=== PATIENT | male | born 1950 | race Caucasian/White ===

== ENCOUNTER → 2017-06-22 08:52 | Outpatient (CLI) | payer MEDICARE, OTHER, SELFPAY ==
[2017-06-22 10:15] LABS: Anion Gap 7 (5-15); BUN 20 mg/dL (7-18); BUN/Creat Ratio 17.4 RATIO (10-20); Calcium,Total 8.8 mg/dL (8.5-10.1); Chloride 101 mmol/L (98-107); Creatinine, Serum 1.15 mg/dL (0.70-1.30); EST Glomerular Filtration Rate 68 mL/min (>60); Est Glom Filt Rate - Afr Amer 82 mL/min (>60); Glucose 94 mg/dL (74-106); Potassium 3.8 mmol/L (3.5-5.1); Sodium Level 137 mmol/L (136-145)
== END ==
DX: I10 Essential (primary) hypertension (principal); E87.6 Hypokalemia
CPT/HCPCS: 36415; 80048

== ENCOUNTER → 2017-11-06 10:32 | Outpatient (CLI) | payer MEDICARE, OTHER, SELFPAY ==
[2017-11-06 12:53] LABS: AST(SGOT) 30 U/L (15-37); Alanine Aminotransfer ALT/SGPT 37 U/L (16-61); Albumin, Serum 3.6 g/dL (3.2-5.0); Alkaline Phosphatase 99 U/L (45-117); Bilirubin, Direct 0.18 mg/dL (0.00-0.30); Cholesterol 112 mg/dL (200); Globulin 3.6 g/dL (2.2-4.2); High Density Lipoprotein 40 mg/dL; Protein, Total 7.2 g/dL (6.4-8.2); Triglycerides 98 mg/dL; Very Low Density Lipoprotein 20 mg/dL (5-40)
== END ==
PROVIDERS: Visit Provider Family Medicine
DX: E78.5 Hyperlipidemia, unspecified (principal)
CPT/HCPCS: 36415; 80061; 80076

== ENCOUNTER → 2018-05-20 10:30 | Outpatient (CLI) | payer MEDICARE, OTHER, SELFPAY ==
[2017-11-07 13:58] VITALS: BMI 27.3
[2018-05-20 12:05] LABS: Color, Urine Yellow (Yellow); Glucose, Dipstick Normal (Normal); Ketone-Dipstick Negative (Negative); Leukocyte Esterase-Dipstick 25 /ul (Negative); Nitrite-Dipstick Negative (Negative); Occult Blood-Urine 25 /ul (Negative); Protein-Dipstick 15 mg/dl (Negative); Urine Bilirubin Dipstick Negative (Negative); Urine Clarity Clear (Clear); Urine Urobilinogen Normal (Normal)
[2018-05-20 12:37] LABS: Absolute Lymphocyte Count 1.42 X10^3/ul (0.83-4.51); Basophil# 0.02 X10^3/uL; Basophil% 0.2 % (0-1); Eosinophil# 0.13 X10^3/uL; Eosinophils% 1.3 % (0-5); Hemoglobin 14.3 g/dl (13.0-16.5); Lymphocyte # 1.42 X10^3/ul (4.0); Lymphocyte % 13.7 % (19-41); Mean Corp Hgb Conc 32.5 g/gl (32-36); Mean Corpuscular Hgb 29.9 pg (27.0-32.0); Mean Corpuscular Volume 91.9 fL (80-94); Mean Platelet Vol. 11.6 fl (6.2-12.0); Monocyte# 0.73 X10^3/uL; Monocyte% 7.1 % (0-10); Neutrophil # 8.03 X10^3/uL (2.7-7.7); Neutrophil % 77.5 % (47-70); Platelet Count 234 K/mm3 (150-450); RBC Distribution Width CV 13.1 % (11.6-14.6); RBC Distribution Width SD 43.5 fl (35.1-43.9); Red Blood Count 4.79 M/mm3 (4.6-6.2); White Blood Count 10.4 K/mm3 (4.4-11.0)
[2018-05-20 12:52] LABS: POSITIVE COUNT NO; POSITIVE DIFFERENTIAL NO; POSITIVE MORPHOLOGY NO
[2018-05-20 12:59] LABS: ALB/GLOB Ratio 0.9 RATIO (0.9-2.4); AST(SGOT) 25 U/L (15-37); Alanine Aminotransfer ALT/SGPT 34 U/L (16-61); Albumin, Serum 3.7 g/dL (3.2-5.0); Alkaline Phosphatase 133 U/L (45-117); Anion Gap 2 (5-15); BUN 21 mg/dL (7-18); BUN/Creat Ratio 18.9 RATIO (10-20); Calcium,Total 8.9 mg/dL (8.5-10.1); Chloride 105 mmol/L (98-107); Cholesterol 129 mg/dL (200); Creatinine, Serum 1.11 mg/dL (0.70-1.30); EST Glomerular Filtration Rate 70 mL/min (>60); Est Glom Filt Rate - Afr Amer 85 mL/min (>60); Glucose 102 mg/dL (74-106); High Density Lipoprotein 43 mg/dL; Protein, Total 7.7 g/dL (6.4-8.2); Sodium Level 138 mmol/L (136-145); Triglycerides 115 mg/dL; Very Low Density Lipoprotein 23 mg/dL (5-40)
== END ==
PROVIDERS: Referring Provider Family Medicine; Visit Provider Family Medicine
DX: Z00.00 Encounter for general adult medical examination without abnormal findings (principal); I10 Essential (primary) hypertension; E78.5 Hyperlipidemia, unspecified; Z86.73 Personal history of transient ischemic attack (TIA), and cerebral infarction without residual deficits; Z12.5 Encounter for screening for malignant neoplasm of prostate
CPT/HCPCS: 36415; 80053; 80061; 81002; 84153; 85025; G0103

== ENCOUNTER → 2018-11-14 09:59 | Outpatient (CLI) | payer MEDICARE, OTHER, SELFPAY ==
[2017-11-07 13:58] VITALS: BMI 27.3
[2018-11-14 12:51] LABS: AST(SGOT) 31 U/L (15-37); Alanine Aminotransfer ALT/SGPT 38 U/L (16-61); Albumin, Serum 3.6 g/dL (3.2-5.0); Alkaline Phosphatase 100 U/L (45-117); Bilirubin, Direct 0.25 mg/dL (0.00-0.30); Cholesterol 125 mg/dL (200); Globulin 3.6 g/dL (2.2-4.2); High Density Lipoprotein 42 mg/dL; Protein, Total 7.2 g/dL (6.4-8.2); Triglycerides 99 mg/dL; Very Low Density Lipoprotein 20 mg/dL (5-40)
== END ==
PROVIDERS: Referring Provider Family Medicine; Visit Provider Family Medicine
DX: E78.5 Hyperlipidemia, unspecified (principal)
CPT/HCPCS: 36415; 80061; 80076

== ENCOUNTER → 2018-11-28 10:52 | Outpatient (CLI) | payer MEDICARE, OTHER, SELFPAY ==
[2017-11-07 13:58] VITALS: BMI 27.3
[2018-12-01 13:40] LABS: PSA, Free 2.62 ng/mL; PSA, Free % 40.3 % (.); PSA, Total Ultrasensitive 6.5 ng/mL (0.0-4.0)
== END ==
PROVIDERS: Referring Provider Urology; Visit Provider Urology
DX: R97.20 Elevated prostate specific antigen [PSA] (principal)
CPT/HCPCS: 36415; 84153; 84154

== ENCOUNTER → 2019-05-15 09:32 | Outpatient (CLI) | payer MEDICARE, SELFPAY ==
[2018-12-06 13:35] VITALS: BMI 29.3
[2019-05-15 12:37] LABS: Color, Urine Yellow (Yellow); Glucose, Dipstick Normal (Normal); Ketone-Dipstick Negative (Negative); Leukocyte Esterase-Dipstick Negative /ul (Negative); Nitrite-Dipstick Negative (Negative); Occult Blood-Urine Negative /ul (Negative); Protein-Dipstick 15 mg/dl (Negative); Urine Bilirubin Dipstick Negative (Negative); Urine Clarity Clear (Clear); Urine Urobilinogen Normal (Normal)
[2019-05-15 12:39] LABS: Absolute Lymphocyte Count 1.47 X10^3/uL (0.83-4.51); Absolute Neutrophil Count 4.3 X10^3/uL (2.0-7.7); Basophil# 0.03 X10^3/uL; Basophil% 0.5 % (0-1); Eosinophil# 0.12 X10^3/uL; Eosinophils% 1.9 % (0-5); Hematocrit 43.9 % (40-54); Hemoglobin 14.5 g/dL (13.0-16.5); Lymphocyte # 1.47 X10^3/ul (4.0); Mean Corpuscular Hgb 29.8 pg (27.0-32.0); Mean Corpuscular Volume 90.3 fL (80-94); Mean Platelet Vol. 11.9 fl (6.2-12.0); Monocyte# 0.49 X10^3/uL; Monocyte% 7.7 % (0-10); NRBC Flagged by Analyzer 0 % (0-5); Neutrophil # 4.26 X10^3/uL (2.7-7.7); Neutrophil % 66.6 % (47-70); Platelet Count 209 K/mm3 (150-450); RBC Distribution Width CV 12.7 % (11.6-14.6); RBC Distribution Width SD 41.9 fl (35.1-43.9); Red Blood Count 4.86 M/mm3 (4.6-6.2); White Blood Count 6.4 K/mm3 (4.4-11.0)
[2019-05-15 13:11] LABS: AST(SGOT) 26 U/L (15-37); Alanine Aminotransfer ALT/SGPT 38 U/L (16-61); Albumin, Serum 3.6 g/dL (3.2-5.0); Alkaline Phosphatase 99 U/L (45-117); Anion Gap 6 (5-15); BUN 19 mg/dL (7-18); BUN/Creat Ratio 18.3 RATIO (10-20); Calcium,Total 8.8 mg/dL (8.5-10.1); Chloride 103 mmol/L (98-107); Cholesterol 120 mg/dL (200); Creatinine, Serum 1.04 mg/dL (0.70-1.30); EST Glomerular Filtration Rate 76 mL/min (>60); Est Glom Filt Rate - Afr Amer 91 mL/min (>60); Globulin 3.6 g/dL (2.2-4.2); Glucose 95 mg/dL (74-106); High Density Lipoprotein 41 mg/dL; PSA,Total - Annual Screen 6.29 ng/mL (0.00-4.00); Potassium 3.5 mmol/L (3.5-5.1); Protein, Total 7.2 g/dL (6.4-8.2); Sodium Level 139 mmol/L (136-145); Triglycerides 124 mg/dL; Very Low Density Lipoprotein 25 mg/dL (5-40)
== END ==
PROVIDERS: Referring Provider Family Medicine; Visit Provider Family Medicine
DX: Z00.00 Encounter for general adult medical examination without abnormal findings (principal); I10 Essential (primary) hypertension; E78.5 Hyperlipidemia, unspecified; Z86.73 Personal history of transient ischemic attack (TIA), and cerebral infarction without residual deficits; Z12.5 Encounter for screening for malignant neoplasm of prostate
CPT/HCPCS: 36415; 80053; 80061; 81002; 84153; 85025; G0103

== ENCOUNTER → 2019-11-13 07:22 | Outpatient (CLI) | payer MEDICARE, SELFPAY ==
[2018-12-06 13:35] VITALS: BMI 29.3
[2019-11-13 10:10] LABS: AST(SGOT) 29 U/L (15-37); Alanine Aminotransfer ALT/SGPT 32 U/L (16-61); Albumin, Serum 3.6 g/dL (3.2-5.0); Alkaline Phosphatase 102 U/L (45-117); Bilirubin, Direct 0.29 mg/dL (0.00-0.30); Cholesterol 131 mg/dL (200); Globulin 3.5 g/dL (2.2-4.2); High Density Lipoprotein 47 mg/dL; Protein, Total 7.1 g/dL (6.4-8.2); Triglycerides 100 mg/dL; Very Low Density Lipoprotein 20 mg/dL (5-40)
== END ==
PROVIDERS: Referring Provider Family Medicine; Visit Provider Family Medicine
DX: E78.5 Hyperlipidemia, unspecified (principal)
CPT/HCPCS: 36415; 80061; 80076

== ENCOUNTER → 2020-06-17 09:16 | Outpatient (CLI) | payer MEDICARE, SELFPAY ==
[2019-12-10 15:21] VITALS: BMI 27.7
[2020-06-17 10:26] LABS: Absolute Lymphocyte Count 1.45 X10^3/uL (0.83-4.51); Absolute Neutrophil Count 4.2 X10^3/uL (2.0-7.7); Basophil# 0.03 X10^3/uL; Basophil% 0.5 % (0-1); Eosinophil# 0.13 X10^3/uL; Eosinophils% 2.1 % (0-5); Hematocrit 44.7 % (40-54); Hemoglobin 14.8 g/dL (13.0-16.5); Lymphocyte # 1.45 X10^3/ul (0.83-4.51); Mean Corp Hgb Conc 33.1 g/dL (32-36); Mean Corpuscular Hgb 29.9 pg (27.0-32.0); Mean Corpuscular Volume 90.3 fL (80-94); Mean Platelet Vol. 11.1 fl (6.2-12.0); Monocyte% 7.9 % (0-10); NRBC Flagged by Analyzer 0 % (0-5); Neutrophil # 4.19 X10^3/uL (2.7-7.7); Neutrophil % 66.3 % (47-70); Platelet Count 226 K/mm3 (150-450); RBC Distribution Width CV 12.3 % (11.6-14.6); RBC Distribution Width SD 40.7 fl (35.1-43.9); Red Blood Count 4.95 M/mm3 (4.6-6.2); White Blood Count 6.3 K/mm3 (4.4-11.0)
[2020-06-17 11:05] LABS: AST(SGOT) 24 U/L (15-37); Alanine Aminotransfer ALT/SGPT 34 U/L (16-61); Albumin, Serum 3.7 g/dL (3.2-5.0); Alkaline Phosphatase 99 U/L (45-117); Anion Gap 5 (5-15); BUN 20 mg/dL (7-18); BUN/Creat Ratio 19.2 RATIO (10-20); Calcium,Total 8.9 mg/dL (8.5-10.1); Chloride 102 mmol/L (98-107); Cholesterol 119 mg/dL (200); Creatinine, Serum 1.04 mg/dL (0.70-1.30); EST Glomerular Filtration Rate 75 mL/min (>60); Est Glom Filt Rate - Afr Amer 91 mL/min (>60); Globulin 3.6 g/dL (2.2-4.2); Glucose 96 mg/dL (74-106); High Density Lipoprotein 47 mg/dL; PSA,Total - Annual Screen 6.94 ng/mL (0.00-4.00); Potassium 3.5 mmol/L (3.5-5.1); Protein, Total 7.3 g/dL (6.4-8.2); Sodium Level 136 mmol/L (136-145); Triglycerides 100 mg/dL; Very Low Density Lipoprotein 20 mg/dL (5-40)
== END ==
PROVIDERS: PCP Family Medicine; Referring Provider Family Medicine; Visit Provider Family Medicine
DX: Z00.00 Encounter for general adult medical examination without abnormal findings (principal); I10 Essential (primary) hypertension; E78.5 Hyperlipidemia, unspecified; Z12.5 Encounter for screening for malignant neoplasm of prostate
CPT/HCPCS: 36415; 80053; 80061; 84153; 85025; G0103

== ENCOUNTER 2020-11-10 00:49 | Emergency (ER) | payer MEDICARE, SELFPAY ==
[2020-11-10 00:52] VITALS: BP 146/86; PULSE 86; RESP 14; TEMP 36.7; O2SAT 98; BMI 27.7
[2020-11-10 00:53] VITALS: BP 146/86; PULSE 86; RESP 14; TEMP 36.7; O2SAT 98
--- NOTE | 2020-11-10 01:42 | CT_ITS ---
STUDY: CT ABDOMEN AND PELVIS WITHOUT CONTRAST REASON FOR EXAM: Male, 70 years old. Hernia RADIATION DOSAGE (If Supplied By Facility): CTDIvol = ( 8.45 ) mGy, DLP = ( 441.23 ) mGycm TECHNIQUE: Transaxial images were obtained from the dome of the diaphragm to the symphysis pubis without oral contrast, and without intravenous contrast. Sagittal and coronal images were reconstructed. Individualized dose optimization techniques were used for this CT. COMPARISON: None. FINDINGS: The visualized lung bases are unremarkable. The visualized portions of the heart are within normal limits. Normal liver. Normal gallbladder and extrahepatic biliary system. Normal spleen. Normal pancreas. Normal bilateral adrenal glands. Normal right kidney. Small nonobstructive left renal collecting system calculus. Normal visualized stomach. Normal small intestine. Normal colon. The appendix is visualized and appears normal. There is diffuse atherosclerotic calcification of the abdominal aorta with elongation and tortuosity, but without a demonstrated aneurysm. Normal inferior vena cava. Normal retroperitoneum. Normal urinary bladder. There is enlargement of the prostate gland. Left greater than right fat-containing hernias. Mild left-sided fat stranding suggesting incarceration. No involved bowel loop. Normal osseous structures. CT/Abdomen/Pelvis without Cont IMPRESSION: Left fat-containing inguinal hernia appears incarcerated. No involved bowel loop. Electronically Signed: Luis Felipe Veliz MD at 3:08 EDT Tel , Service support ,
--- NOTE | 2020-11-10 02:34 | EDS_ITS ---
HPI <Dr. Anila Ni MD - Last Filed: 11/10/20 10:54> History of Present Illness Chief Complaint: Complaint Detail of Chief Complaint: Left lower quadrant pain Informant: patient Onset/Context/Timing Onset: Today Current Severity: Mild Maximum Severity: Severe Narrative Narrative: Patient presents secondary to left lower quadrant pain. He states earlier tonight he noted a large swollen area in his left lower abdomen that was very painful. He took some ibuprofen and put ice pack on the area. It seems to be significantly improved at this time. Patient denies any dysuria or difficulty urinating. No known hernia. [facility] <Dr. Anila Ni MD - Last Filed: 11/10/20 10:54> [facility] Medical History (Updated 11/10/20 @ 02:[address] Anila Ni MD) Cerebral artery occlusion with cerebral infarction Essential hypertension Hyperlipidemia JACK (obstructive sleep apnea) Home Medications aspirin 81 mg PO DAILY@0800 #30 tab.chew 09/08/14 [Rx Last Taken Unknown] hydrochlorothiazide 25 mg tablet 25 mg PO QAM #30 tab 04/30/17 [Rx Last Taken Unknown] omega-3 fatty acids 1,000 mg capsule 1,000 mg PO DAILY 10/30/17 [History Last Taken Unknown] multivitamin 1 tab PO DAILY 11/07/17 [History Last Taken Unknown] ascorbic acid (vitamin C) 500 mg capsule 500 mg PO DAILY cap 12/06/18 [History Last Taken Unknown] atorvastatin 40 mg tablet 40 mg PO QHS #90 tab 04/22/19 [Rx Last Taken Unknown] lisinopril 20 mg tablet 20 mg PO DAILY 12/10/19 [History Last Taken Unknown] Allergy/AdvReac Type Severity Reaction Status Date / Time No Known Allergies Allergy Verified 12/10/19 15:21 Family History Father Cancer Brain Social History Smoking Status: Never smoker alcohol intake: never substance use type: does not use ROS <Dr. Anila Ni MD - Last Filed: 11/10/20 10:54> ROS ED Constitutional Constitutional ED: Denies chills or fever(s) Eyes Eyes: Denies change in vision ENT ENT ED: Denies sore throat Cardiovascular Cardiovascular: Denies chest pain Respiratory/Chest Respiratory/Chest: Denies cough or dyspnea Gastrointestinal Gastrointestinal: Reports abdominal pain; Denies diarrhea, nausea or vomiting Genitourinary Genitourinary ED: Denies dysuria Musculoskeletal Musculoskeletal: Denies back pain Integumentary Denies rash Neurologic Neurologic: Denies headache(s) or weakness Allergic/Immunologic Allergic/Immunologic ED: Denies urticaria EXAM <Dr. Anila Ni MD - Last Filed: 11/10/20 10:54> Physical Exam Const Vital Signs: 11/10/20 00:52 11/10/20 00:53 11/10/20 03:44 Temperature 98.1 F 98.1 F Temperature Source Temporal Temporal Pulse Rate 86 86 84 Respiratory Rate 14 14 18 Blood Pressure 146/86 H 146/86 H Blood Pressure Mean 106 106 Pulse Ox 98 98 97 Oxygen Delivery Method Room Air Room Air Positive well nourished and well developed General Appearance ED: well developed HEENT Reports normocephalic and head/scalp atraumatic Eyes PERRL and EOMs intact bilaterally Neck supple Chest Wall inspection of chest normal and palpation of chest normal Resp normal respiratory effort and clear to auscultation bilaterally Cardio regular rate and regular rhythm GI normal to inspection, nondistended, normoactive bowel sounds Palpation: soft and tender other (Mild tenderness along the left inguinal line.) Extremity normal to inspection Neuro oriented x3 and no sensory deficits noted Sensorium / Orientation: alert Motor Exam: strength 5/5 throughout Psych mental status grossly normal Skin no rashes or lesions noted <Dr. Alfa Hernandez DO - Last Filed: 11/10/20 03:40> Physical Exam Const Vital Signs: 11/10/20 00:52 11/10/20 00:53 11/10/20 03:44 Temperature 98.1 F 98.1 F Temperature Source Temporal Temporal Pulse Rate 86 86 84 Respiratory Rate 14 14 18 Blood Pressure 146/86 H 146/86 H Blood Pressure Mean 106 106 Pulse Ox 98 98 97 Oxygen Delivery Method Room Air Room Air MDM <Dr. Anila Ni MD - Last Filed: 11/10/20 10:54> [facility] MDM Narrative Medical decision making narrative: Patient's clinical exam consistent with hernia. I do not appreciate strangulated hernia at this time. He is sent for CT flank. Radiography Diagnostic Testing: Radiology Impression Abdomen/Pelvis CT 11/10/20 01:42 IMPRESSION: Left fat-containing inguinal hernia appears incarcerated. No involved bowel loop. Electronically Signed: Luis Felipe Veliz MD at 3:08 EDT Tel , Service support , Treatment and Re-Evaluation Comments:: Per my interpretation there does appear to be a hernia sac noted to the left inguinal region. I do not see any sign of bowel inflammation or obstruction. Final report will be signed out to oncoming physician. Patient be given lifting restrictions and referral for surgery follow-up. <Dr. Alfa Hernandez, DO - Last Filed: 11/10/20 03:40> [facility] MDM Narrative Medical decision making narrative: Le: Results of CT scan fat-containing hernia with stranding reporting incarcerated. There is no bowel loops. He has no current pain. Patient is given follow-up with surgery. Return precautions discussed. All questions answered. Radiography Diagnostic Testing: Radiology Impression Abdomen/Pelvis CT 11/10/20 01:42 IMPRESSION: Left fat-containing inguinal hernia appears incarcerated. No involved bowel loop. Electronically Signed: Luis Felipe Veliz MD at 3:08 EDT Tel , Service support , Discharge Plan Triage Chief Complaint: Complaint ED Provider: Anila Ni Dx/Rx/DC Orders Clinical Impression: Inguinal hernia Instructions: ED Hernia (Adult) Prescriptions: No Action multivitamin tablet 1 tab PO DAILY RF: 0 omega-3 fatty acids [Fish Oil Concentrate] 1,000 mg capsule 1,000 mg PO DAILY RF: 0 ascorbic acid (vitamin C) 500 mg capsule 500 mg PO DAILY RF: 0 lisinopril 20 mg tablet 20 mg PO DAILY RF: 0 aspirin 81 MG tablet,chewable 81 mg PO DAILY@0800 Qty: 30 RF: 0 hydrochlorothiazide 25 mg tablet 25 mg PO QAM Qty: 30 RF: 11 atorvastatin 40 mg tablet 40 mg PO QHS Qty: 90 RF: 3 Stand Alone Forms: ED Work / School Excuse Primary Care Provider: Aayush Alston Referrals: Joe Sherwood MD [STAFF PHYSICIAN] - As soon as possible Aayush Alston MD [Primary Care Provider] - Disposition Disposition: Home, Self Care Discharge Date/Time: 11/10/20 03:46
[2020-11-10 03:44] VITALS: PULSE 84; RESP 18; O2SAT 97
== END 2020-11-10 03:46 | disposition home or self-care (01) ==
PROVIDERS: Emergency Provider Emergency Medicine; PCP Family Medicine
DX: K40.30 Unilateral inguinal hernia, with obstruction, without gangrene, not specified as recurrent (principal); I10 Essential (primary) hypertension; E78.5 Hyperlipidemia, unspecified; G47.33 Obstructive sleep apnea (adult) (pediatric); Z79.82 Long term (current) use of aspirin; Z79.899 Other long term (current) drug therapy; Z86.73 Personal history of transient ischemic attack (TIA), and cerebral infarction without residual deficits
CPT/HCPCS: 74176; 99282

== ENCOUNTER 2020-11-26 05:36 | Day surgery (SDC) | payer MEDICARE, SELFPAY ==
--- NOTE | 2020-11-24 10:43 | EKG12_ITS ---
Test Reason : PRE OP Blood Pressure : / mmHG Vent. Rate : 066 BPM Atrial Rate : 066 BPM P-R Int : 160 ms QRS Dur : 100 ms QT Int : 382 ms P-R-T Axes : 047 -54 025 degrees QTc Int : 400 ms Normal sinus rhythm Left axis deviation Abnormal ECG Confirmed by CALLY CARPIO, CHARLENE ([id number]), editorial cartoonist JAYESH DE LEON ([id number]) on 11/26/2020 9:48:35 AM Referred By: Joe Sherwood Confirmed By:CHARLENE ALAMO MD
[2020-11-24 11:30] LABS: Hematocrit 42.7 % (40-54); Hemoglobin 14.6 g/dL (13.0-16.5); Mean Corp Hgb Conc 34.2 g/dL (32-36); Mean Corpuscular Hgb 30.7 pg (27.0-32.0); Mean Corpuscular Volume 89.7 fL (80-94); Platelet Count 242 K/mm3 (150-450); RBC Distribution Width CV 12.2 % (11.6-14.6); RBC Distribution Width SD 40.2 fl (35.1-43.9); Red Blood Count 4.76 M/mm3 (4.6-6.2); White Blood Count 7.6 K/mm3 (4.4-11.0)
[2020-11-24 11:52] LABS: Anion Gap 4 (5-15); BUN 21 mg/dL (7-18); BUN/Creat Ratio 20.2 RATIO (10-20); Calcium,Total 9.1 mg/dL (8.5-10.1); Chloride 103 mmol/L (98-107); Creatinine, Serum 1.04 mg/dL (0.70-1.30); EST Glomerular Filtration Rate 75 mL/min (>60); Est Glom Filt Rate - Afr Amer 91 mL/min (>60); Glucose 122 mg/dL (74-106); Potassium 3.6 mmol/L (3.5-5.1); Sodium Level 137 mmol/L (136-145)
[2020-11-26] VITALS (7 sets, daily range): BP systolic 100–143; BP diastolic 58–86; PULSE 57–88; RESP 14–18; TEMP 36.2–36.8; O2SAT 94–100; BMI 26.4
--- NOTE | 2020-11-26 | HERN_PTH ---
PATIENT: MANN THURMAN LOC: [facility] U#:[id number] AGE/SX: 70/M ROOM: RE11/26/[address]: Dr. Joe Sherwood MD : 1950 BED: DIS: 11/26/2020 SPEC #: [id number] RECD: 11/26/20 13:08 STATUS: PAUL KUNAL #: [id number] [place]YANNE: 11/26/20 00:[address]: Joe Sherwood DEPT: SURGICAL PATHOLOGY RECD BY: Chas Esquivel ENTERED: 11/26/20 13:08 SP TYPE: Hernia OTHR DR: Dr. Aayush Alston MD Tissues: HERNIA Procedures: Surgery Specimen Level II HEADER OPERATION: Open inguinal hernia repair with mesh PRE-OP DIAGNOSIS: Inguinal hernia TISSUE SUBMITTED: Left inguinal hernia sac MICROSCOPIC DIAGNOSIS Soft tissue of left inguinal region, excision: Consistent with hernia sac with recent hemorrhage and vascular congestion. AM:vandana 11/29/2020 MICROSCOPIC DESCRIPTION Slides are reviewed. GROSS DESCRIPTION Received in fixative is one container labeled with the patient's name and designated left inguinal hernia sac. The specimen consists of a piece of soft tissue measuring 11 x 6 x 1 cm. A focal area of congestion is noted. No mass lesion is identified. Operations Supervisor sections are submitted in one cassette. / SJ:rg 11/26/20 TC:5 CPT: 60697
[2020-11-26] MEDS: Lactated Ringers 1,000 ML 100 ML IV ×2 (06:20→08:46)
--- NOTE | 2020-11-26 07:18 | HP.PCM_ITS ---
History and Physical Date of Admission: 11/26/20 Date of Service: 11/17/20 MR#:[id number]:[id number]: MANN GUAJARDO [facility] #:[id number]:1950 Provider:Gumaro Bustillos/Sex: 70/M [facility] Int[facility] Vital Signs 11/17/20 09:28 Height 5 ft 7 in Weight: 171 lb 8 oz BMI 26.9 BP 140/92 H Blood Pressure Location Rt brachial Position Sitting Respiration 18 Pulse 83 Pulse Source NIBP Temp 98.2 F Temp Source Temporal Pulse Oximetry (%) 99 Oxygen Delivery Method room air Intake Visit Reasons: ER F/U INGUINAL HERNIA Chief Complaint: LI Roll Inspector Required: No Is patient in pain?: No Allergies No Known Allergies Allergy (Verified 11/17/20 09:29) Medications aspirin 81 mg PO DAILY@0800 #30 tab.chew 09/08/14 [Rx Confirmed 11/17/20] hydrochlorothiazide 25 mg tablet 25 mg PO QAM #30 tab 04/30/17 [Rx Confirmed 11/17/20] omega-3 fatty acids 1,000 mg capsule 1,000 mg PO DAILY 10/30/17 [History Confirmed 11/17/20] multivitamin 1 tab PO DAILY 11/07/17 [History Confirmed 11/17/20] ascorbic acid (vitamin C) 500 mg capsule 500 mg PO DAILY cap 12/06/18 [History Confirmed 11/17/20] atorvastatin 40 mg tablet 40 mg PO QHS #90 tab 04/22/19 [Rx Confirmed 11/17/20] lisinopril 20 mg tablet 20 mg PO DAILY 12/10/19 [History Confirmed 11/17/20] mecobalamin (vitamin B12) 5,000 mcg disintegrating tablet mcg PO 11/17/20 [History Confirmed 11/17/20] [facility] Medical History (Updated 11/17/20 @ 10:[address] Joe Sherwood MD) Cerebral artery occlusion with cerebral infarction Essential hypertension Hyperlipidemia JACK (obstructive sleep apnea) TIA (transient ischemic attack) Surgical History (Updated 11/17/20 @ 09:28 by Elizabeth Griffin) History of ankle surgery History of colonoscopy Family History Father Cancer Brain Social History Smoking Status: Never smoker alcohol intake: never substance use type: does not use HPI HPI HPI: MANN GUAJARDO, is a 70 M who presents to the office today for newly diagnosed left inguinal hernia. This finding was first noticed by patient on 11/10/2020 as a bulge after a full day of working at the local [employer]. This led him to present to [facility] ER where CT imaging was obtained showing a moderate?sized left inguinal hernia likely containing incarcerated fat. Patient is not able to recall any specific event on how this occurred but, again, does lift and push as part of his work duties. Mr. Guajardo denies any interruption of his bowel movements which occur 1 time daily. He denies any recent nausea or vomiting. He states that he has taken a couple of days off work and limit his activity since he was diagnosed with this hernia. However, he is happy to relate that he has experienced minimal pain from this area. Despite the CT reading, he notices that the bulge in his left groin does seem to subside when lying flat. Patient has no personal history of smoking. Has no personal history of recurrent cutaneous infections including staph. Pertinent surgical history includes: No abdominal surgeries and no anesthetic complications ROS General General: No weight change, appetite, fatigue, colon cancer, breast cancer or weakness HEENT HEENT: No difficulty swallowing, eye injury, eye surgery, swollen glands or hoarseness Endo Endocrine: No thyroid disease, diabetes mellitus, thyroid cancer, Hair loss, heat intolerance or cold intolerance Musc Musculoskeletal: No back problems, arthritis, rheumatoid arthritis, gout or joint pain Cardio Cardiovascular: Yes high blood pressure; No murmur, pacemaker, heart disease, atrial fibrillation, heart attack, heart stent, palpitations, shortness of breat with exertion or chest pain Psych Psychiatric: No depression, anxiety or hearing voices Resp Respiratory: No shortness of breath, No sleep apnea, No cough, No COPD, No asthma, No emphysema and No wheezing Gastro Gastrointestinal: No abdominal pain, No nausea or vomiting, No diarrhea, No constipation, No blood in stool, No acid reflux, No hemorrhoids, No ulcers, No gallbladder problem and No black,tarry stools Candido Hematologic: Yes blood thinners, No blood disorders, No bleeding, No anemia and No blood clots Neuro Neurologic: No weakness Exam Const General: cooperative, healthy appearing and comfortable Nutritional Appearance: average body habitus Orientation: alert, awake and oriented x3 Neck Carotids: no bruits Resp Effort & Inspection: normal respiratory effort Auscultation: no rales, no rhonchi and no wheezes Cardio Rate: regular rate Rhythm: regular rhythm Heart Sounds: S1 normal and S2 normal GI Inspection: non-distended Palpation: soft, hernia indirect inguinal bilaterally and umbilical (Small, approximately 1 cm defect without hernia contents) and nontender Assessment and Plan Assessment and Plan (1) Inguinal hernia: Status: Acute Qualifiers: Obstruction and gangrene presence: without obstruction or gangrene Laterality: bilateral Recurrence: non-recurrent Qualified Code(s): K40.20 - Bilateral inguinal hernia, without obstruction or gangrene, not specified as recurrent Comment: Patient with bilateral inguinal hernias, however, the left inguinal hernias significantly larger than the right and the only one that is symptomatic. Currently contains a large amount of fat (likely omentum) that is at least partially reducible. I did not make any attempts at fully reducing this giving it is currently functioning to exclude bowel from this defect. This hernia has led to missed days of work for Mr. Guajardo. His job entails significant physical requirements on a normal basis, but he states his employer is very flexible and has offered light duty. Therefore, I think it is in the patient's best interest to proceed with an outpatient inguinal hernia repair at our next mutual availability. Plan - Dr. Joe Sherwood MD: ?Plan to proceed with left open inguinal hernia repair with mesh sometime next week (2) Umbilical hernia without obstruction and without gangrene: Status: Acute Comment: With very small umbilical hernia no hernia contents present. This does not appear to be symptomatic Plan - Dr. Joe Sherwood MD: Continue watchful waiting/observation of this area. In the future it would be reasonable to perform a primary hernia repair should patient so desire. I have re-examined the patient. There are no clinical changes since date of exam. Patient has had minimal abdominal discomfort with this hernia and states he has made arrangements at work for recovery. Plan to proceed with left open inguinal hernia repair as discussed above.
[2020-11-26] MEDS: Cefazolin 2 GM in 0.9% Normal Saline 100 ML IV (07:26)
[2020-11-26] MEDS: Bupivacaine 0.25% 30 ML Vial (07:43)
--- NOTE | 2020-11-26 09:57 | OP.PCM_ITS ---
Problems Associated Problem List Diagnoses (1) Inguinal hernia: Report of Operation Date of Procedure: 11/26/20 Pre-Operative Diagnosis: Left inguinal hernia Post-Operative Diagnosis: Direct, sliding, left inguinal hernia Surgery/Procedure Performed:: Lucy repair of left inguinal hernia Description of Surgical Findings:: ?Large hernia sac containing omentum and a small portion of the sigmoid colon ?Large inguinal floor defect representing a direct inguinal hernia Surgeon: Joe Sherwood advisory services associate: None (crow) advisory services associate: Crow Sharma Type of Anesthesia: General/Supplemental Anesthesiologist: Bob Rogers Specimen's removed: Left inguinal hernia sac Drains: None Estimated Blood Loss (mL): 50 Description of Procedure: After appropriate identification in the preoperative holding area the patient was brought to the operating room where he was positioned supine on the operating room table. Preoperative antibiotics were administered by anesthesia and the patient was induced with general endotracheal anesthetic. Patient's surgical site had been clipped of all pubic hair in the preoperative area. The site was then prepped and draped in the usual sterile fashion. A formal timeout was conducted to confirm both the patient and procedure. The procedure was then begun by performing a local block along the planned incision area using half percent bupivacaine. Additional local anesthetic was instilled just inferior to the anterior superior iliac spine to anesthetize the region of the ilioinguinal and iliohypogastric nerves. A transverse incision was made approximately 7 cm in length. Then a combination of blunt dissection and electrocautery was used to reach the level of the external oblique aponeurosis. This was sharply divided and the layer was opened medially through the level of the external ring and laterally for approximately 4 cm. Once this was opened, I could clearly see the spermatic cord but there is additional subcutaneous tissue arising from the floor of the inguinal canal. The spermatic cord was then encircled with a Crumpler drain to retracted out of the way of our repair. With some blunt dissection I was able to delineate a rather large hernia sac which extended down into the scrotum. Manual traction was applied on this hernia sac until it was able to be delivered into our surgical site. This hernia sac emanated from the canal floor medial to the epigastric vessels?thereby qualifying as a direct defect. The sac appeared to contain largely omentum but there was additional anatomy that was not clearly fatty and so I elected to dissect out the sac. The cremasterics fibers were stripped and the hernia sac was opened. I did encounter a large amount of omentum as well as a short segment (approximately 5 cm) of sigmoid colon. Hernia sac was then fully open so we could see the opening of the peritoneal cavity. These hernia contents were reduced back into the peritoneal cavity through this opening and a 3-0 Vicryl was used to perform a pursestring at the base of the hernia sac to close this opening. The redundant hernia sac tissue was then amputated with use of electrocautery to assist with hemostasis. This point I then performed a complete examination of what was left of the inguinal canal floor. I found it to be largely obliterated and atretic where it remained so I performed a rough repair of the canal using 3-0 Vicryl to approximate the edge of the conjoined tendon to the inguinal ligament. With this complete I obtained a piece of Ethicon ultra Pro mesh and cut this mesh to fit our defect (including producing 2 tails to fit around our spermatic cord). The mesh was tacked medially into the pubic tubercle using 2-0 Ethibond suture. I then situated the tails of the mesh around the spermatic cord. The mesh was tacked in interrupted fashion using additional 2-0 Ethibond suture to shelving edge of the inguinal ligament as well as superiorly to the conjoined tendon. The tails of the mesh were tacked to one another on the lateral aspect of the new internal ring. This produced an opening just large enough for a fingertip. With the mesh lie nice and flat, the spermatic cord was then freed from the Crumpler and allowed to return to its natural location. The external oblique aponeurosis was then closed over the spermatic cord using 3-0 Vicryl in a running fashion. Sepideh's was reapproximated with a additional 3-0 Vicryl suture. Several deep dermal stitches were placed in an interrupted fashion to approximate the skin edges. The skin was then closed with a running subcuticular stitch using 4-0 Monocryl. Dermabond was applied for dressing. 5 mL additional half percent bupivacaine were infiltrated just inferior to the anterior superior iliac spine to provide additional analgesia postoperatively. Patient was awoken from the anesthetic without complication. He was transferred to PACU for ongoing recovery. Complications None Admit VTE Documentation VTE Mechan Device Prophylaxis: SCD's
--- NOTE | 2020-11-26 10:13 | EX.PCM.DISCH ---
Discharge Instructions Diet Discharge Diet: No restrictions Activity Discharge Activity: May Not Drive (While taking narcotic pain medication) and May Shower Ice area for (Minutes): 20 Lifting Restrictions: Less than 10 pounds for the next 6 weeks Dressing / Incision Call your doctor if your incision/area has: Sudden Increased Bleeding, Increased Pain/ Swelling, Increased Redness and Swelling at the incision site Call your doctor if you observe: Fever of 101 or Higher, Numbness or Tingling, Inability to urinate and Uncontrolled pain Suture Line Care: Avoid Pulling/Pushing Change Dressing in: do not change dressing Cleanse incision/area with: Soap & Water Follow Up Care Please Follow Up With: Joe Sherwood MD When: In 2 weeks postop Test Results: Test results from this visit will be discussed in further detail at your follow-up appointment, if applicable. Discharge Plan Admission Primary Reason for Your Visit: Repair of left inguinal hernia Attending Provider: Joe Sherwood Primary Care Provider: Aayush Alston Instructions Patient Instructions: After Hernia Surgery Discharge Orders/Prescriptions Prescriptions: New tramadol 50 mg tablet 50 mg PO Q6H PRN (Reason: pain) Qty: 20 RF: 0 No Action multivitamin tablet 1 tab PO DAILY RF: 0 omega-3 fatty acids [Fish Oil Concentrate] 1,000 mg capsule 1,000 mg PO DAILY RF: 0 ascorbic acid (vitamin C) 500 mg capsule 500 mg PO DAILY RF: 0 lisinopril 20 mg tablet 20 mg PO DAILY RF: 0 mecobalamin (vitamin B12) 5,000 mcg tablet,disintegrating 5,000 mcg PO DAILY RF: 0 aspirin 81 MG tablet,chewable 81 mg PO DAILY@0800 Qty: 30 RF: 0 hydrochlorothiazide 25 mg tablet 25 mg PO QAM Qty: 30 RF: 11 atorvastatin 40 mg tablet 40 mg PO QHS Qty: 90 RF: 3 Referrals / Follow Up: Aayush Alston MD [Primary Care Provider] - Disposition Disposition (needs filled in before D/C Order can be placed): Home, Self Care
[2020-11-26] MEDS: traMADol 50 MG Tablet PO (11:49)
== END 2020-11-26 13:55 | disposition home or self-care (01) ==
LOC: SDC 05:37 → AC 05:37
PROVIDERS: Anesthesiology; PCP Family Medicine; Referring Provider Surgery; Visit Provider Surgery
PROC: (CPT 49505; principal; 2020-11-26 07:15)
DX: K40.20 Bilateral inguinal hernia, without obstruction or gangrene, not specified as recurrent (principal); I10 Essential (primary) hypertension; E78.5 Hyperlipidemia, unspecified; G47.33 Obstructive sleep apnea (adult) (pediatric); Z79.82 Long term (current) use of aspirin; Z79.899 Other long term (current) drug therapy; Z86.73 Personal history of transient ischemic attack (TIA), and cerebral infarction without residual deficits
CPT/HCPCS: 00830; 49505; 36415; 80048; 85027; 88302; 93005; J7120; C1781; J2405

== ENCOUNTER → 2021-01-05 08:27 | Outpatient (CLI) | payer MEDICARE, SELFPAY ==
[2021-01-05 10:26] LABS: ALB/GLOB Ratio 0.9 RATIO (0.9-2.4); AST(SGOT) 22 U/L (15-37); Alanine Aminotransfer ALT/SGPT 30 U/L (16-61); Albumin, Serum 3.5 g/dL (3.2-5.0); Alkaline Phosphatase 103 U/L (45-117); Anion Gap 5 (5-15); BUN 20 mg/dL (7-18); BUN/Creat Ratio 17.9 RATIO (10-20); Calcium,Total 9.3 mg/dL (8.5-10.1); Chloride 102 mmol/L (98-107); Cholesterol 119 mg/dL (200); Creatinine, Serum 1.12 mg/dL (0.70-1.30); EST Glomerular Filtration Rate 69 mL/min (>60); Est Glom Filt Rate - Afr Amer 84 mL/min (>60); Globulin 3.8 g/dL (2.2-4.2); Glucose 103 mg/dL (74-106); High Density Lipoprotein 48 mg/dL; Potassium 3.5 mmol/L (3.5-5.1); Protein, Total 7.3 g/dL (6.4-8.2); Sodium Level 137 mmol/L (136-145); Triglycerides 111 mg/dL; Very Low Density Lipoprotein 22 mg/dL (5-40)
== END ==
PROVIDERS: PCP Family Medicine; Referring Provider Family Medicine; Visit Provider Family Medicine
DX: E78.5 Hyperlipidemia, unspecified (principal); I10 Essential (primary) hypertension
CPT/HCPCS: 36415; 80053; 80061

== ENCOUNTER → 2021-06-30 | Outpatient (CLI) | payer MEDICARE, SELFPAY ==
[2021-06-30 09:54] LABS: Basophil# 0.03 X10^3/uL; Basophil% 0.5 % (0-1); Eosinophils% 1.6 % (0-5); Hematocrit 42.6 % (40-54); Hemoglobin 14.6 g/dL (13.0-16.5); Mean Corp Hgb Conc 34.3 g/dL (32-36); Mean Corpuscular Hgb 30.7 pg (27.0-32.0); Mean Corpuscular Volume 89.7 fL (80-94); Mean Platelet Vol. 11.7 fl (6.2-12.0); Monocyte# 0.51 X10^3/uL; Monocyte% 8.4 % (0-10); NRBC Flagged by Analyzer 0 % (0-5); Neutrophil # 4.02 X10^3/uL (2.7-7.7); Neutrophil % 66.2 % (47-70); Platelet Count 195 K/mm3 (150-450); RBC Distribution Width CV 12.7 % (11.6-14.6); RBC Distribution Width SD 41.9 fl (35.1-43.9); Red Blood Count 4.75 M/mm3 (4.6-6.2); White Blood Count 6.1 K/mm3 (4.4-11.0)
[2021-06-30 10:19] LABS: AST(SGOT) 24 U/L (15-37); Alanine Aminotransfer ALT/SGPT 33 U/L (16-61); Albumin, Serum 3.6 g/dL (3.2-5.0); Alkaline Phosphatase 101 U/L (45-117); Anion Gap 6 (5-15); BUN 21 mg/dL (7-18); BUN/Creat Ratio 18.1 RATIO (10-20); Calcium,Total 8.9 mg/dL (8.5-10.1); Chloride 107 mmol/L (98-107); Cholesterol 129 mg/dL (200); Creatinine, Serum 1.16 mg/dL (0.70-1.30); EST Glomerular Filtration Rate 66 mL/min (>60); Est Glom Filt Rate - Afr Amer 80 mL/min (>60); Globulin 3.7 g/dL (2.2-4.2); Glucose 105 mg/dL (74-106); High Density Lipoprotein 42 mg/dL; PSA,Total - Annual Screen 8.66 ng/mL (0.00-4.00); Potassium 3.8 mmol/L (3.5-5.1); Protein, Total 7.3 g/dL (6.4-8.2); Sodium Level 141 mmol/L (136-145); Triglycerides 107 mg/dL; Very Low Density Lipoprotein 21 mg/dL (5-40)
== END | disposition home or self-care (01) ==
LOC: MTLAB 08:39
PROVIDERS: PCP Family Medicine; Referring Provider Family Medicine; Visit Provider Family Medicine
DX: Z00.00 Encounter for general adult medical examination without abnormal findings (principal); E78.5 Hyperlipidemia, unspecified; I10 Essential (primary) hypertension; Z12.5 Encounter for screening for malignant neoplasm of prostate
CPT/HCPCS: 36415; 80053; 80061; 84153; 85025; G0103

== ENCOUNTER → 2022-07-06 | Outpatient (CLI) | payer MEDICARE, SELFPAY ==
[2022-07-06 15:18] LABS: Absolute Lymphocyte Count 1.18 X10^3/uL (0.83-4.51); Absolute Neutrophil Count 3.6 X10^3/uL (2.0-7.7); Basophil# 0.03 X10^3/uL; Basophil% 0.6 % (0-1); Eosinophil# 0.05 X10^3/uL; Hematocrit 45.2 % (40-54); Lymphocyte # 1.18 X10^3/ul (0.83-4.51); Lymphocyte % 22.6 % (19-41); Mean Corp Hgb Conc 33.2 g/dL (32-36); Mean Corpuscular Hgb 30.5 pg (27.0-32.0); Mean Corpuscular Volume 91.9 fL (80-94); Mean Platelet Vol. 11.7 fl (6.2-12.0); Monocyte# 0.37 X10^3/uL; Monocyte% 7.1 % (0-10); NRBC Flagged by Analyzer 0 % (0-5); Neutrophil # 3.59 X10^3/uL (2.7-7.7); Neutrophil % 68.5 % (47-70); Platelet Count 236 K/mm3 (150-450); RBC Distribution Width CV 12.7 % (11.6-14.6); RBC Distribution Width SD 43.1 fl (35.1-43.9); Red Blood Count 4.92 M/mm3 (4.6-6.2); White Blood Count 5.2 K/mm3 (4.4-11.0)
[2022-07-06 15:53] LABS: Vitamin B12 486 pg/mL (211-911)
[2022-07-06 16:04] LABS: ALB/GLOB Ratio 0.9 RATIO (0.9-2.4); AST(SGOT) 30 U/L (15-37); Alanine Aminotransfer ALT/SGPT 41 U/L (16-61); Albumin, Serum 3.7 g/dL (3.2-5.0); Alkaline Phosphatase 107 U/L (45-117); Anion Gap 8 (5-15); BUN 19 mg/dL (7-18); BUN/Creat Ratio 19.9 RATIO (10-20); Calcium,Total 9.4 mg/dL (8.5-10.1); Chloride 102 mmol/L (98-107); Cholesterol 125 mg/dL (200); Creatinine, Serum 0.96 mg/dL (0.70-1.30); EST Glomerular Filtration Rate 82 mL/min (>60); Est Glom Filt Rate - Afr Amer 100 mL/min (>60); Globulin 3.9 g/dL (2.2-4.2); Glucose 106 mg/dL (74-106); High Density Lipoprotein 44 mg/dL; Potassium 3.6 mmol/L (3.5-5.1); Protein, Total 7.6 g/dL (6.4-8.2); Sodium Level 138 mmol/L (136-145); T4 Free Direct 0.98 ng/dL (0.76-1.46); Thyroid Stim Hormone (TSH) 1.84 uIU/mL (0.358-3.74); Triglycerides 147 mg/dL; Very Low Density Lipoprotein 29 mg/dL (5-40)
[2022-07-11 05:07] LABS: Anti-Thyroglobulin AB < 1.0 IU/mL (0.0-0.9); Thyroid Peroxidase AB < 9 IU/mL (0-34); VITAMIN B6 19.6 ug/L (3.4-65.2); Vitamin B1, Thiamine 169.9 nmol/L (66.5-200.0)
== END | disposition home or self-care (01) ==
LOC: MFPLAB 12:00
PROVIDERS: PCP Family Medicine; Visit Provider Family Medicine
DX: E53.9 Vitamin B deficiency, unspecified (principal); I10 Essential (primary) hypertension; E01.0 Iodine-deficiency related diffuse (endemic) goiter
CPT/HCPCS: 36415; 80053; 80061; 82607; 83036; 84207; 84425; 84432; 84439; 84443; 85025; 86376; 86800

== ENCOUNTER → 2022-07-27 | Outpatient (CLI) | payer MEDICARE, SELFPAY ==
--- NOTE | 2022-07-27 09:46 | ECHOD_ITS ---
Reason For Study: Murmur Procedure This was a 2D Doppler, Color Flow transthoracic echocardiogram. Exam performed in department. Left Ventricle Normal LV size. Left ventricular systolic function is normal. The estimated ejection fraction is 60 %. Stage 1 diastolic dysfunction. No regional wall motion abnormalities noted. Right Ventricle Normal RV size. Normal systolic function. Atria Normal left atrium. Normal right atrium. Mitral Valve Normal mitral valve. Tricuspid Valve Normal tricuspid valve. Mild tricuspid valve insufficiency. Pulmonary artery systolic pressure is 30 mmHg. Aortic Valve Trisinus/trileaflet aortic valve. Mild focal aortic valve calcification. Pulmonic Valve Normal pulmonic valve. Great Vessels Normal aortic root. The pulmonary artery is normal size. Normal inferior vena cava. Pericardium/Pleural No pericardial effusion. MMode/2D Measurements & Calculations LVIDd: 4.6 cm IVSd: 1.2 cm Ao root diam: 3.6 cm LVIDs: 3.4 cm LVPWd: 1.00 cm LA dimension: 3.9 cm RVDd: 3.8 cm FS: 26.9 % LAV(MOD-bp): 54.8 ml LA A4 area: 19.2 cm2 RA A4 area: 16.7 cm2 LAV(MOD-bp) Indexed: 28.4 ml/m2 LAV(MOD-sp2): 50.9 ml LAV(MOD-sp4): 58.8 ml Time Measurements MV dec time: 0.21 sec Doppler Measurements & Calculations MV E max zia: 73.5 cm/sec Lat Peak E' Zia: 9.1 cm/sec Med Peak E' Zia: 7.7 cm/sec MV A max zia: 95.6 cm/sec E/E' lat: 8.1 E/E' med: 9.5 MV E/A: 0.77 MV V2 max: 109.2 cm/sec MV P1/2t max zia: 79.6 cm/sec Ao V2 max: 157.0 cm/sec MV max P.8 mmHg MV P1/2t: 65.2 msec Ao max P.9 mmHg MV V2 mean: 56.8 cm/sec MV dec slope: 357.2 cm/sec2 Ao V2 mean: 100.1 cm/sec MV mean P.5 mmHg MVA(P1/2t): 3.4 cm2 Ao mean P.7 mmHg MV V2 VTI: 26.8 cm Ao V2 VTI: 37.7 cm AV (velocity ratio): 0.73 LV V1 max: 109.2 cm/sec PA V2 max: 137.1 cm/sec TR max zia: 253.9 cm/sec LV V1 max P.8 mmHg PA V2 mean: 82.0 cm/sec TR max P.8 mmHg LV V1 mean P.6 mmHg LV V1 mean: 77.1 cm/sec LV V1 VTI: 27.4 cm ECHO/Echo Complete Interpretation Summary Normal LV size. Left ventricular systolic function is normal. The estimated ejection fraction is 60 %. Stage 1 diastolic dysfunction. Mild tricuspid valve insufficiency. Ordering Physician: Saul Michelle Referring Physician: Saul Michelle Performed By: Chip Maynard RCS
== END | disposition home or self-care (01) ==
LOC: CVS 09:45
PROVIDERS: PCP Family Medicine; Referring Provider Family Medicine; Visit Provider Family Medicine
DX: R01.1 Cardiac murmur, unspecified (principal)
CPT/HCPCS: 93306

== ENCOUNTER → 2022-08-24 | Outpatient (CLI) | payer MEDICARE, SELFPAY ==
--- NOTE | 2022-08-24 09:36 | CDU_ITS ---
Reason For Study: Stroke Rt. Velocities/BP Lt. Velocities/BP Prox CCA 70.2/13.5 cm/sec. Prox CCA 93.8/15.7 cm/sec. Mid CCA 74.9/11.6 cm/sec. Mid CCA 88.3/17.9 cm/sec. Dist CCA 62.6/11.6 cm/sec. Dist CCA 69.6/16.8 cm/sec. Prox ICA 55.9/10.8 cm/sec. Prox ICA 78.4/13.5 cm/sec. Mid ICA 61.9/20.1 cm/sec. Mid ICA 56.8/20.9 cm/sec. Dist ICA 56/16.7 cm/sec. Dist ICA 58.6/20.6 cm/sec. Rt. ICA/CCA = 0.88. Lt. ICA/CCA = 0.89. Prox ECA 135.7/15.2 cm/sec. Prox ECA 92.7/14.6 cm/sec. Rt. Vert. 41/10.2 cm/sec. Lt. Vert. 25.8/5.9 cm/sec. Right Extracranial There is homogeneous, smooth atherosclerotic plaque noted in the right common carotid artery. There is heterogeneous, irregular atherosclerotic plaque noted in the right internal carotid artery. There is heterogeneous, irregular atherosclerotic plaque noted in the right external carotid artery. Antegrade flow is noted in the right vertebral artery. Left Extracranial There is homogeneous, smooth atherosclerotic plaque noted in the left common carotid artery. There is heterogeneous, irregular atherosclerotic plaque noted in the left internal carotid artery. There is intimal thickening but no significant atherosclerotic plaque noted in the left external carotid artery. Antegrade flow is noted in the left vertebral artery. Procedure Carotid Duplex 30093. This is a Carotid Duplex examination using B-mode, color flow and specral Doppler. Exam performed in department. VL/Carotid Duplex Ultrasound Interpretation Summary Irregular heterogenous plaque at the proximal right internal carotid artery wit h less than 50% stenosis Less than 50% stenosis right external carotid artery Minimal irregular plaque at the proximal left internal carotid artery with less than 50% stenosis Less than 50% stenosis left external carotid artery Patent and antegrade vertebral arteries bilaterally Ordering Physician: Saul Michelle Referring Physician: Saul Michelle Performed By: Therese Rodriguez RVT
--- NOTE | 2022-08-24 09:37 | US_ITS ---
STUDY: THYROID ULTRASOUND REASON FOR EXAM: Male, 72 years old. Abnormal thyroid function tests TECHNIQUE: Ultrasound evaluation of the thyroid was performed with real-time and static pathak-scale imaging. COMPARISON: None. FINDINGS: RIGHT LOBE: The right lobe of the thyroid gland measures 3.6 x 1.7 x 1.7 cm. There is a homogeneous echotexture. 2 separate simple cysts are noted in the upper pole both measuring approximately 6 mm. There is a solid lower pole nodule measuring 0.9 x 0.8 x 0.8 cm.. This nodule is solid or almost completely solid, hyperechoic or isoechoic, [id number], smoothly marginated and contains no echogenic foci. This nodule is mildly suspicious but no FNA or follow-up is necessary given the small size of this nodule. LEFT LOBE: The left lobe of the thyroid gland measures 4.1 x 1.5 x 1.8 cm. There is a homogeneous echotexture. There are no demonstrated solid, cystic or complex lesions. ISTHMUS: The isthmus measures 3 mm. The regional lymph nodes are normal. US/Thyroid IMPRESSION: Normal-sized homogeneous thyroid gland with a solid lower pole nodule in the right lobe. Follow-up as described above. Simple subcentimeter cyst in the upper pole of the right thyroid lobe, no specific follow-up Electronically Signed: Bhargav Mathur MD at 11:53 EDT ,
== END | disposition home or self-care (01) ==
PROVIDERS: PCP Family Medicine; Referring Provider Family Medicine; Visit Provider Family Medicine
DX: I65.23 Occlusion and stenosis of bilateral carotid arteries (principal); E01.0 Iodine-deficiency related diffuse (endemic) goiter
CPT/HCPCS: 76536; 93880

== ENCOUNTER → 2022-12-21 | Outpatient (CLI) | payer MEDICARE, SELFPAY ==
[2022-12-21 11:07] LABS: Bacteria 0 SEEN /hpf (None Seen); Mucous, Urine 0 SEEN /hpf (<or=2+); White Blood Cells 0 SEEN /hpf (0-5)
[2022-12-21 12:21] LABS: Color, Urine Yellow (Yellow); Glucose, Dipstick Normal (Normal); Ketone-Dipstick Negative (Negative); Leukocyte Esterase-Dipstick Negative /ul (Negative); Nitrite-Dipstick Negative (Negative); Occult Blood-Urine Negative /ul (Negative); Protein-Dipstick Negative (Negative); Specific Gravity, Urine 1.015 (1.002-1.030); Urine Bilirubin Dipstick Negative (Negative); Urine Clarity Sl. Cloudy (Clear); Urine Urobilinogen Normal (Normal)
[2022-12-21 12:23] LABS: Absolute Lymphocyte Count 0.99 X10^3/uL (0.83-4.51); Absolute Neutrophil Count 3.9 X10^3/uL (2.0-7.7); Basophil# 0.04 X10^3/uL; Basophil% 0.7 % (0-1); Eosinophil# 0.06 X10^3/uL; Eosinophils% 1.1 % (0-5); Hematocrit 42.6 % (40-54); Hemoglobin 14.5 g/dL (13.0-16.5); Lymphocyte # 0.99 X10^3/ul (0.83-4.51); Lymphocyte % 18.3 % (19-41); Mean Corpuscular Hgb 31.3 pg (27.0-32.0); Mean Corpuscular Volume 91.8 fL (80-94); Mean Platelet Vol. 10.8 fl (6.2-12.0); Monocyte# 0.43 X10^3/uL; NRBC Flagged by Analyzer 0 % (0-5); Neutrophil # 3.87 X10^3/uL (2.7-7.7); Neutrophil % 71.7 % (47-70); Platelet Count 203 K/mm3 (150-450); RBC Distribution Width SD 43.7 fl (35.1-43.9); Red Blood Count 4.64 M/mm3 (4.6-6.2); White Blood Count 5.4 K/mm3 (4.4-11.0)
[2022-12-21 12:31] LABS: Red Blood Cells-Urine 0-5 SEEN /hpf (0-5); Squamous Epithelial Cells - UA 0-5 SEEN /hpf (0-5)
[2022-12-21 12:57] LABS: Vitamin B12 487 pg/mL (211-911)
[2022-12-21 13:33] LABS: AST(SGOT) 24 U/L (15-37); Alanine Aminotransfer ALT/SGPT 32 U/L (16-61); Albumin, Serum 3.7 g/dL (3.2-5.0); Alkaline Phosphatase 100 U/L (45-117); Anion Gap 5 (5-15); BUN 22 mg/dL (7-18); BUN/Creat Ratio 21.2 RATIO (10-20); Calcium,Total 9.4 mg/dL (8.5-10.1); Chloride 103 mmol/L (98-107); Cholesterol 110 mg/dL (200); Creatinine, Serum 1.04 mg/dL (0.70-1.30); EST Glomerular Filtration Rate 75 mL/min (>60); Est Glom Filt Rate - Afr Amer 90 mL/min (>60); Globulin 3.7 g/dL (2.2-4.2); Glucose 109 mg/dL (74-106); High Density Lipoprotein 48 mg/dL; Potassium 3.7 mmol/L (3.5-5.1); Protein, Total 7.4 g/dL (6.4-8.2); Sodium Level 139 mmol/L (136-145); T4 Free Direct 0.92 ng/dL (0.76-1.46); Thyroid Stim Hormone (TSH) 1.66 uIU/mL (0.358-3.74); Triglycerides 82 mg/dL; Very Low Density Lipoprotein 16 mg/dL (5-40)
[2022-12-21 20:10] LABS: Hemoglobin A1c 5.7 % (3.8-5.6)
[2022-12-25 21:07] LABS: VITAMIN B6 25.2 ug/L (3.4-65.2); Vitamin B1, Thiamine 157.5 nmol/L (66.5-200.0)
== END | disposition home or self-care (01) ==
LOC: MTLAB 10:59
PROVIDERS: PCP Family Medicine; Referring Provider Family Medicine; Visit Provider Family Medicine
DX: E53.9 Vitamin B deficiency, unspecified (principal); I10 Essential (primary) hypertension; E01.0 Iodine-deficiency related diffuse (endemic) goiter; R73.09 Other abnormal glucose
CPT/HCPCS: 36415; 80053; 80061; 81001; 82607; 83036; 84207; 84425; 84439; 84443; 85025

== ENCOUNTER → 2022-12-25 | Outpatient (CLI) | payer MEDICARE, SELFPAY ==
[2022-12-25 15:58] LABS: AST(SGOT) 20 U/L (15-37); Alanine Aminotransfer ALT/SGPT 33 U/L (16-61); Albumin, Serum 3.6 g/dL (3.2-5.0); Alkaline Phosphatase 103 U/L (45-117); Globulin 3.8 g/dL (2.2-4.2); Protein, Total 7.4 g/dL (6.4-8.2)
== END | disposition home or self-care (01) ==
LOC: MTLAB 11:19
PROVIDERS: PCP Family Medicine; Referring Provider Family Medicine; Visit Provider Family Medicine
DX: E80.6 Other disorders of bilirubin metabolism (principal)
CPT/HCPCS: 36415; 80076

== ENCOUNTER → 2023-08-30 | Outpatient (CLI) | payer MEDICARE, SELFPAY ==
[2023-08-30 12:29] LABS: Absolute Neutrophil Count 3.8 X10^3/uL (2.0-7.7); Basophil# 0.03 X10^3/uL; Basophil% 0.6 % (0-1); Eosinophil# 0.05 X10^3/uL; Eosinophils% 0.9 % (0-5); Hematocrit 43.2 % (40-54); Hemoglobin 14.5 g/dL (13.0-16.5); Mean Corp Hgb Conc 33.6 g/dL (32-36); Mean Corpuscular Volume 89.3 fL (80-94); Mean Platelet Vol. 11.9 fl (6.2-12.0); Monocyte# 0.46 X10^3/uL; Monocyte% 8.7 % (0-10); NRBC Flagged by Analyzer 0 % (0-5); Neutrophil # 3.84 X10^3/uL (2.7-7.7); Neutrophil % 72.6 % (47-70); Platelet Count 205 K/mm3 (150-450); RBC Distribution Width CV 12.7 % (11.6-14.6); RBC Distribution Width SD 41.6 fl (35.1-43.9); Red Blood Count 4.84 M/mm3 (4.6-6.2); White Blood Count 5.3 K/mm3 (4.4-11.0)
[2023-08-30 12:44] LABS: Vitamin B12 604 pg/mL (211-911)
[2023-08-30 13:02] LABS: ALB/GLOB Ratio 0.9 RATIO (0.9-2.4); AST(SGOT) 24 U/L (15-37); Alanine Aminotransfer ALT/SGPT 33 U/L (16-61); Albumin, Serum 3.6 g/dL (3.2-5.0); Alkaline Phosphatase 111 U/L (45-117); Anion Gap 5 (5-15); BUN 20 mg/dL (7-18); BUN/Creat Ratio 17.5 RATIO (10-20); Calcium,Total 9.3 mg/dL (8.5-10.1); Chloride 102 mmol/L (98-107); Cholesterol 115 mg/dL (200); Creatinine, Serum 1.14 mg/dL (0.70-1.30); EST Glomerular Filtration Rate 67 mL/min (>60); Est Glom Filt Rate - Afr Amer 81 mL/min (>60); Globulin 3.8 g/dL (2.2-4.2); Glucose 110 mg/dL (74-106); High Density Lipoprotein 48 mg/dL; Magnesium 2.3 mg/dL (1.6-2.6); PSA,Total - Annual Screen 9.28 ng/mL (0.00-4.00); Potassium 4.1 mmol/L (3.5-5.1); Protein, Total 7.4 g/dL (6.4-8.2); Sodium Level 136 mmol/L (136-145); Thyroid Stim Hormone (TSH) 1.76 uIU/mL (0.358-3.74); Triglycerides 65 mg/dL; Very Low Density Lipoprotein 13 mg/dL (5-40)
[2023-08-30 13:19] LABS: Hemoglobin A1c 5.9 % (3.8-5.6)
[2023-09-09 00:07] LABS: VITAMIN B6 28.2 ug/L (3.4-65.2); Vitamin B1, Thiamine 146.7 nmol/L (66.5-200.0)
== END | disposition home or self-care (01) ==
LOC: MFPLAB 10:50
PROVIDERS: PCP Family Medicine; Visit Provider Family Medicine
DX: Z12.5 Encounter for screening for malignant neoplasm of prostate (principal); I10 Essential (primary) hypertension; R73.02 Impaired glucose tolerance (oral); E53.9 Vitamin B deficiency, unspecified
CPT/HCPCS: 80053; 80061; 82607; 83036; 83735; 84153; 84207; 84425; 84443; 85025; G0103

== ENCOUNTER → 2023-09-27 | Outpatient (CLI) | payer MEDICARE, SELFPAY ==
--- NOTE | 2023-09-27 09:41 | CDU_ITS ---
Reason For Study: carotid stenosis Rt. Velocities/BP Lt. Velocities/BP Prox CCA 86.3/17.3 cm/sec. Prox CCA 96.1/15.1 cm/sec. Mid CCA 90.0/20.1 cm/sec. Mid CCA 102.3/18.8 cm/sec. Dist CCA 76.8/18.2 cm/sec. Dist CCA 87.6/21.2 cm/sec. Prox ICA 67.6/17.9 cm/sec. Prox ICA 82.8/11.3 cm/sec. Mid ICA 93.7/26.2 cm/sec. Mid ICA 62.0/19.2 cm/sec. Dist ICA 61.8/16.3 cm/sec. Dist ICA 51.8/15.8 cm/sec. Rt. ICA/CCA = 1.0. Lt. ICA/CCA = .8. Prox ECA 178.5/22.6 cm/sec. Prox ECA 128.4/18.8 cm/sec. Rt. Vert. 40.0/8.8 cm/sec. Lt. Vert. 26.4/4.6 cm/sec. Right Extracranial There is homogeneous, smooth atherosclerotic plaque noted in the right common carotid artery. There is heterogeneous, irregular atherosclerotic plaque noted in the right internal carotid artery. There is heterogeneous, irregular atherosclerotic plaque noted in the right external carotid artery. Antegrade flow is noted in the right vertebral artery. Left Extracranial There is homogeneous, smooth atherosclerotic plaque noted in the left common carotid artery. There is heterogeneous, irregular atherosclerotic plaque noted in the left internal carotid artery. There is heterogeneous, irregular atherosclerotic plaque noted in the left external carotid artery. Antegrade flow is noted in the left vertebral artery. Procedure Carotid Duplex 18092. This is a Carotid Duplex examination using B-mode, color flow and specral Doppler. The exam was diagnostic. Exam performed in department. VL/Carotid Duplex Ultrasound Interpretation Summary Mild (<50%) stenosis right extracranial internal carotid. Mild (<50%) stenosis left extracranial internal carotid. Patent and antegrade vertebrals bilaterally. Ordering Physician: Saul Michelle Referring Physician: Saul Michelle Performed By: Cesar Portillo, T
== END | disposition home or self-care (01) ==
LOC: CVS 09:40
PROVIDERS: PCP Family Medicine; Referring Provider Family Medicine; Visit Provider Family Medicine
DX: I65.23 Occlusion and stenosis of bilateral carotid arteries (principal)
CPT/HCPCS: 93880

== ENCOUNTER → 2023-10-04 | Outpatient (CLI) | payer MEDICARE, SELFPAY ==
[2023-10-06 08:12] LABS: PSA, Free 3.15 ng/mL; PSA, Free % 34.3 % (.)
== END | disposition home or self-care (01) ==
LOC: LAB 13:42
PROVIDERS: PCP Family Medicine; Referring Provider Urology; Visit Provider Urology
DX: R97.20 Elevated prostate specific antigen [PSA] (principal)
CPT/HCPCS: 36415; 84153; 84154

== ENCOUNTER → 2024-01-03 | Outpatient (CLI) | payer MEDICARE, SELFPAY ==
[2024-01-03 10:37] LABS: Bacteria 0 SEEN /hpf (None Seen); Mucous, Urine 0 SEEN /hpf (<or=2+); Red Blood Cells-Urine 0 SEEN /hpf (0-5); Squamous Epithelial Cells - UA 0 SEEN /hpf (0-5); White Blood Cells 0 SEEN /hpf (0-5)
[2024-01-03 12:20] LABS: Color, Urine Yellow (Yellow); Glucose, Dipstick Normal (Normal); Ketone-Dipstick Negative (Negative); Leukocyte Esterase-Dipstick Negative /ul (Negative); Nitrite-Dipstick Negative (Negative); Occult Blood-Urine Negative /ul (Negative); Protein-Dipstick Negative (Negative); Urine Bilirubin Dipstick Negative (Negative); Urine Clarity Clear (Clear); Urine Urobilinogen Normal (Normal)
[2024-01-03 12:27] LABS: Absolute Lymphocyte Count 0.84 X10^3/uL (0.83-4.51); Absolute Neutrophil Count 3.3 X10^3/uL (2.0-7.7); Basophil# 0.02 X10^3/uL; Basophil% 0.4 % (0-1); Eosinophil# 0.03 X10^3/uL; Eosinophils% 0.7 % (0-5); Hematocrit 43.5 % (40-54); Hemoglobin 14.5 g/dL (13.0-16.5); Lymphocyte # 0.84 X10^3/ul (0.83-4.51); Lymphocyte % 18.5 % (19-41); Mean Corp Hgb Conc 33.3 g/dL (32-36); Mean Corpuscular Volume 90.1 fL (80-94); Mean Platelet Vol. 11.5 fl (6.2-12.0); Monocyte# 0.39 X10^3/uL; Monocyte% 8.6 % (0-10); NRBC Flagged by Analyzer 0 % (0-5); Neutrophil # 3.25 X10^3/uL (2.7-7.7); Neutrophil % 71.6 % (47-70); Platelet Count 204 K/mm3 (150-450); RBC Distribution Width CV 12.5 % (11.6-14.6); RBC Distribution Width SD 41.2 fl (35.1-43.9); Red Blood Count 4.83 M/mm3 (4.6-6.2); White Blood Count 4.5 K/mm3 (4.4-11.0)
[2024-01-03 12:37] LABS: Vitamin B12 629 pg/mL (211-911)
[2024-01-03 12:41] LABS: AST(SGOT) 28 U/L (15-37); Alanine Aminotransfer ALT/SGPT 31 U/L (16-61); Albumin, Serum 3.7 g/dL (3.2-5.0); Alkaline Phosphatase 109 U/L (45-117); Anion Gap 6 (5-15); BUN 21 mg/dL (7-18); BUN/Creat Ratio 20.2 RATIO (10-20); Calcium,Total 9.3 mg/dL (8.5-10.1); Chloride 102 mmol/L (98-107); Cholesterol 116 mg/dL (200); Creatinine, Serum 1.04 mg/dL (0.70-1.30); EST Glomerular Filtration Rate 75 mL/min (>60); Est Glom Filt Rate - Afr Amer 90 mL/min (>60); Globulin 3.6 g/dL (2.2-4.2); Glucose 113 mg/dL (74-106); High Density Lipoprotein 49 mg/dL; Phosphorus 2.5 mg/dL (2.5-4.9); Potassium 3.5 mmol/L (3.5-5.1); Protein, Total 7.3 g/dL (6.4-8.2); Sodium Level 136 mmol/L (136-145); Triglycerides 80 mg/dL; Very Low Density Lipoprotein 16 mg/dL (5-40)
[2024-01-14 02:07] LABS: Vitamin B1, Thiamine 150.8 nmol/L (66.5-200.0)
== END | disposition home or self-care (01) ==
LOC: MFPLAB 10:33
PROVIDERS: PCP Family Medicine; Referring Provider Family Medicine; Visit Provider Family Medicine
DX: R73.02 Impaired glucose tolerance (oral) (principal); E53.9 Vitamin B deficiency, unspecified; E78.5 Hyperlipidemia, unspecified; I10 Essential (primary) hypertension
CPT/HCPCS: 80053; 80061; 81001; 82607; 83036; 84100; 84425; 85025

== ENCOUNTER → 2024-01-17 | Outpatient (CLI) | payer MEDICARE, SELFPAY | END | disposition home or self-care (01) | LOC: US 12:27 | PROVIDERS: PCP Family Medicine; Referring Provider Family Medicine; Visit Provider Family Medicine | DX: E04.1 Nontoxic single thyroid nodule (principal) | CPT/HCPCS: 76536 ==

== ENCOUNTER → 2024-08-28 | Outpatient (CLI) | payer MEDICARE, SELFPAY ==
[2024-08-28 11:09] LABS: Bacteria 0 SEEN /hpf (None Seen); Mucous, Urine 0 SEEN /hpf (<or=2+); Red Blood Cells-Urine 0 SEEN /hpf (0-5); Squamous Epithelial Cells - UA 0 SEEN /hpf (0-5); White Blood Cells 0 SEEN /hpf (0-5)
[2024-08-28 12:45] LABS: Absolute Lymphocyte Count 1.01 X10^3/uL (0.83-4.51); Absolute Neutrophil Count 4.3 X10^3/uL (2.0-7.7); Basophil# 0.03 X10^3/uL; Basophil% 0.5 % (0-1); Eosinophil# 0.03 X10^3/uL; Eosinophils% 0.5 % (0-5); Hemoglobin 13.9 g/dL (13.0-16.5); Lymphocyte # 1.01 X10^3/ul (0.83-4.51); Lymphocyte % 17.5 % (19-41); Mean Corp Hgb Conc 33.9 g/dL (32-36); Mean Corpuscular Hgb 30.3 pg (27.0-32.0); Mean Corpuscular Volume 89.3 fL (80-94); Mean Platelet Vol. 11.5 fl (6.2-12.0); Monocyte# 0.36 X10^3/uL; Monocyte% 6.3 % (0-10); NRBC Flagged by Analyzer 0 % (0-5); Neutrophil # 4.32 X10^3/uL (2.7-7.7); Platelet Count 204 K/mm3 (150-450); RBC Distribution Width CV 12.8 % (11.6-14.6); RBC Distribution Width SD 41.9 fl (35.1-43.9); Red Blood Count 4.59 M/mm3 (4.6-6.2); White Blood Count 5.8 K/mm3 (4.4-11.0)
[2024-08-28 12:51] LABS: Color, Urine Yellow (Yellow); Glucose, Dipstick Normal (Normal); Ketone-Dipstick Negative (Negative); Leukocyte Esterase-Dipstick Negative /ul (Negative); Nitrite-Dipstick Negative (Negative); Occult Blood-Urine Negative /ul (Negative); Protein-Dipstick Negative (Negative); Specific Gravity, Urine 1.015 (1.002-1.030); Urine Bilirubin Dipstick Negative (Negative); Urine Clarity Clear (Clear); Urine Urobilinogen Normal (Normal); Urine pH 6.5 (5.0 - 8.0)
[2024-08-28 13:46] LABS: ALB/GLOB Ratio 1.4 RATIO (0.9-2.4); AST(SGOT) 28 U/L (<=37); Alanine Aminotransfer ALT/SGPT 27 U/L (<=46); Albumin, Serum 4.2 g/dL (3.4-4.8); Alkaline Phosphatase 99 U/L (40-129); Anion Gap 12 (5-15); BUN 21 mg/dL (4-19); BUN/Creat Ratio 20.7 RATIO (10-20); Calcium,Total 9.6 mg/dL (7.6-11.0); Carbon Dioxide 24.9 mmol/L (21.0-32.0); Chloride 101 mmol/L (98-108); Cholesterol 144 mg/dL (<=200); EST Glomerular Filtration Rate 79 (>60); Glucose 105 mg/dL (70-99); High Density Lipoprotein 45 mg/dL; Low Density Lipoprotein Calc. 77 mg/dL; Potassium 3.6 mmol/L (3.3-5.1); Protein, Total 7.2 g/dL (5.9-8.4); Sodium Level 138 mmol/L (133-145); Total Bilirubin 1.37 mg/dL (0.00-1.30); Triglycerides 111 mg/dL; Very Low Density Lipoprotein 22 mg/dL (5-40); Vitamin B12 599 pg/mL (180-914); cholesterol:hdl ratio screen 3.24
[2024-09-01 15:08] LABS: VITAMIN B6 31.4 ug/L (3.4-65.2); Vitamin B1, Thiamine 145.7 nmol/L (66.5-200.0)
== END | disposition home or self-care (01) ==
LOC: MFPLAB 11:02
PROVIDERS: PCP Family Medicine; Referring Provider Family Medicine; Visit Provider Family Medicine
DX: I10 Essential (primary) hypertension (principal); R73.02 Impaired glucose tolerance (oral)
CPT/HCPCS: 36415; 80053; 80061; 81001; 82607; 83036; 84207; 84425; 85025

== ENCOUNTER → 2025-01-01 | Outpatient (CLI) | payer MEDICARE, SELFPAY ==
--- OUTSIDE RECORDS SUMMARY | 2025-01-01 11:26 | XMS RPT_ITS | CCD ---
Author Organization [facility] Care Team Providers Care Bow Stapler Name Role Phone DeFinis, Harumi Y Unavailable Unavailable DeFinis, Harumi Y Unavailable Unavailable Karen Gomez Y Unavailable Gamaliel CARPIO, Aayush Yadav Primary Care Provider AAYUSH WILLS Referring Unavailab AAYUSH Hawthorne Primary Care Unavailab AAYUSH Hawthorne Attending Unavailab AAYUSH Hawthorne Primary Care Unavailab Wen CARPIO, Aayush Yadav Primary Care Provider Dr. Saul Michelle Primary Care Provider 1([facility] )[phone] Dr. Eric Gooden Attending Provider 1([facility])[phone] Venu Mckeon Attending Provider 1([facility])[phone] Dr. Saul Michelle MD Primary Care Provider Dr. Saul Michelle MD Referring Provider 1([facility] )[phone] Dr. Eric Gooden MD Attending Provider 1([facility])[phone] Dr. Saul Michelle MD Attending Provider 1([facility] )[phone] Saul Michelle Primary Care Unavailable Saul Michelle Referring Unavailable Saul Michelle Attending Unavailable Christoph Ramirez Referring Unavailable Christoph Ramirez Attending Unavailable Saul Michelle Primary Care Unavailable Saul Michelle Referring Unavailable Saul Michelle Attending Unavailable Saul Michelle Primary Care Unavailable Saul Michelle Primary Care Unavailable Saul Michelle Referring Unavailable Saul Michelle Attending Unavailable Blake Martinez Attending Unavailable Saul Michelle Primary Care Unavailable Saul Michelle Referring Unavailable Saul Michelle Primary Care Unavailable Saul Michelle Referring Unavailable Eric Gooden Attending Unavailable Saul Michelle Primary Care Unavailable Saul Michelle Referring Unavailable Saul Michelle Attending Unavailable Allergies Allergy Classification Reported Allergen(s) Allergy Type Date of Onset Reaction(s) Facility (6 sources) NKDA; Translations: [NKDA] allergy to substance 5 [employer] Work Phone: [phone] NEGATED: Highlighted row has been ruled out! (3 sources) Observed No Known Drug Allergies at GE No Known Allergies 7 propensity to adverse reactions [employer] Work Phone: [phone] Medications Current Medications Medication Drug Class(es) Dates Sig (Normalized) Sig (Original) ascorbic acid 500 mg oral capsule (6 sources) Vitamin C Start: 12-06-2018 take 1 capsule by mouth once daily Ascorbic Acid (Vitamin C) 500 mg capsule Active 500 mg PO DAILY 0 December 06, 2018 12:00am hydroCHLOROthiazide 25 mg / valsartan 160 mg oral tablet (9 sources) Thiazide Diuretic, Angiotensin 2 Receptor Brenda Start: 01-05-2022 take 1 tablet by mouth once daily Valsartan-[place] chlorothiazide Active 1 TABLET PO DAILY January 05, 2022 12:00am Start: 12-21-2021 End: 12-21-2022 Valsartan-Hydrochlorothiazid e 160-25 mg tablet Active 1 {tbl} PO DAILY January 05, 2022 12:00am Comment on above: Take 1 tablet by german th once daily. Multivitamin preparation (5 sources) Start: 11-07-2017 take 1 tablet by mouth once daily Multivitamin Active 1 TABLET PO DAILY November 07, 2017 1:59pm Start: 11-07-2017 take 1 tablet by greman th once daily Multivitamin Active 1 TABLET PO DAILY November 07, 2017 12:00am Multivitamin tablet (1 source) Start: 11-07-2017 Multivitamin t ablet Active 1 {tbl} PO DAILY November 07, 2017 12:00am [place]-3 Fatty Acids (Fish Oil Concentrate) 1,000 mg capsule (6 sources) Start: 10-30-2017 take 1 capsule by mouth once daily [place]-3 Fatty Acids (Fish Oil Concentrate) 1,000 mg capsule Active 1000 MG PO DAILY October 30, 2017 4:22pm Start: 10-30-2017 take 1 capsule by mo uth once daily [place]-3 Fatty Acids (Fish Oil Concentrate) 1,000 mg capsule Active 1000 mg PO DAILY October 30, 2017 12:00am Start: 10-30-2017 take 1 capsule by mo uth once daily [place]-3 Fatty Acids (Fish Oil Concentrate) 1,000 mg capsule Active 1000 MG PO DAILY October 30, 2017 12:00am Vitamin B Complex tablet (1 source) Start: 03-15-2023 Vitamin B Comp lennie tablet Active 1 {tbl} PO DAILY March 15, 2023 1:00am Completed/Discontinued Medications Medication Drug Class(es) Dates Sig (Normalized) Sig (Original) aspirin 81 mg oral strip (12 sources) Nonsteroidal Anti-inflammatory Drug Start: 10-07-2014 take 1 tablet by mouth once daily ASPIRIN 81 MG TABS One tablet by mouth daily ASPIRIN [id number] Felicita Benson RN Start: 10-07-2014 take 1 tablet by german th once daily ASPIRIN EC 81 MG TBEC Take one tab by mouth daily ASPIRIN [id number] Tanya Anderson DAIRY GRAZER Start: 09-08-2014 take 1 tablet by german th once daily Aspirin 81 MG tablet,chewable Active 81 mg PO DAILY@0800 30 0 September 08, 2014 12:00am atorvastatin 40 mg oral tablet (20 sources) HMG-CoA Reductase Inhibitor Start: 04-16-2017 End: 07-06-2022 take 1 tablet by mouth at bedtime Atorvastatin 40 mg tablet Discontinued 40 mg PO AT BEDTIME 90 3 February 27, 2018 11:51am April 22, 2019 9:03am Start: 10-07-2014 take 1 tablet by german th once daily LIPITOR 40 MG TABS One tablet by mouth daily ATORVASTATIN CALCIUM [id number] Ivon Ramirez PA-C Start: 09-08-2014 End: 04-16-2017 Atorvastatin 80 MG tablet Discontinued 40 mg PO AT BEDTIME 30 0 September 08, 2014 12:00am April 16, 2017 3:55pm Start: 09-08-2014 End: 04-16-2017 take 40 mg by mouth at bedtime Atorvastatin Discontinu ed 40 MG PO AT BEDTIME September 08, 2014 12:00am April 16, 2017 3:55pm Comment on above: TAKE 1 TABLET EVERY DAY fish oil (3 sources) Start: 2015 take 1 tablet by mouth once daily FISH OIL CAPS One tablet by mouth daily [place]ME[place]-3 FATTY ACIDS CAPS [id number] Luis Felipe Alfred MD hydroCHLOROthiazide 25 mg oral tablet (18 sources) Thiazide Diuretic Start: 2017 End: 2021 take 1 tablet by mouth once daily in the morning Hydrochlorothiazide 25 mg tablet Discontinued 25 mg PO EVERY MORNING 01 02April 30, 2017 12:26pm January 05, 2022 11:06am Start: 04-21-2015 take 1 tablet by german th once daily HYDROCHLOROTHIAZIDE 25 MG TABS One tablet by mouth daily HYDROCHLOROTHIAZIDE [id number] Ivon Ramirez PA-C Comment on above: Take 1 tablet by german th once daily. lisinopril 20 mg oral tablet (20 sources) Angiotensin Converting Enzyme Inhibitor Start: 0 End: 2 take 1 tablet by mouth once daily Lisinopril 20 mg tablet Discontinued 20 mg PO DAILY December 10, 2019 12:00am January 05, 2022 11:06am Start: 11-07-2017 End: 12-10-2019 take 2 tablets by mouth once daily Lisinopril 10 mg tablet Discontinued 20 mg PO DAILY November 07, 2017 1:59pm December 10, 2019 3:22pm Start: 11-07-2017 End: 12-10-2019 take 20 mg by mouth once daily Lisinopril Discontinued 20 MG PO DAILY November 07, 2017 1:59pm December 10, 2019 3:22pm Start: 10-07-2014 take 1 tablet by german th twice daily LISINOPRIL 10 MG TABS One tablet by mouth twice daily LISINOPRIL [id number] Ivon Ramirez PA-C Start: 09-08-2014 End: 11-07-2017 take 1 tablet by mouth once daily Lisinopril 10 MG tablet Discontinued 10 mg PO DAILY 30 0 September 08, 2014 12:00am November 07, 2017 2:00pm mecobalamin 5 mg disintegrating oral tablet (6 sources) Start: 11-17-2020 End: 03-15-2023 take 1 tablet by mouth once daily Mecobalamin (Vitamin B12) 5,000 mcg tablet,disintegrating Discontinued 5000 ug PO DAILY November 17, 2020 12:00am March 15, 2023 11:57am zpmxbkgy-hpt-iprwh -vit K-lycop (MEN'S ONE DAILY) 400-20-300 mcg tab (4 sources) Start: 05-06-2018 vxoypjxq-ath-fygbf-vit K-lycop (MEN'S ONE DAILY) 400-20-300 mcg tab Take by mouth. 0 05/06/2018 Active Comment on above: Take by mouth. sildenafil 100 mg oral tablet (6 sources) Phosphodiesterase 5 Inhibitor Start: 04-21-2015 End: 11-03-2016 VIAGRA 100 MG TABS one half to one tablet as needed SILDENAFIL CITRATE [id number] Ivon Ramirez PA-C traMADol hydrochloride 50 mg oral tablet (6 sources) Opioid Agonist Start: 11-26-2020 End: 01-05-2021 take 1 tablet by mouth every six hours as needed for pain Tramadol 50 mg tablet Discontinued 50 mg PO EVERY 6 HOURS as needed for pain 20 0 November 26, 2020 12:00am January 05, 2021 9:12am Inguinal hernia Problems Active Problems Problem Classification Problem Date Documented Da te Episodic/Chronic Abdominal hernia (12 sources) Umbilical hernia; Translations: [Umbilical hernia without obstruction or gangrene] 11-17-2020 Episodic Comment on above: With very small umbi lical hernia no hernia contents present. This does not appear to be symptomatic Patient with bilater al inguinal hernias, however, the left inguinal hernias significantly larger than the right and the only one that is symptomatic. Currently contains a large amount of fat (likely omentum) that is at least partially reducible. I did not make any attempts at fully reducing this giving it is currently functioning to exclude bowel from this defect. This hernia has led to missed days of work for Mr. Guajardo. His job entails significant physical requirements on a normal basis, but he states his employer is very flexible and has offered light duty. Therefore, I think it is in the patient's best interest to proceed with an outpatient inguinal hernia repair at our next mutual availability. Acute cerebrovascular disease (7 sources) Cerebral infarction; Translations: [Cerebrovascular accident] Onset: 10-07-2014 10-07-2014 Chronic Disorders of lipid metabolism (17 sources) Hyperlipidemia; Translations: [Hyperlipidemia, unspecified] Onset: 10-07-2014 10-07-2014 Chronic Essential hypertension (18 sources) Hypertensive disorder; Translations: [Essential hypertension] Onset: 10-07-2014 10-07-2014 Chronic Occlusion or stenosis of precerebral arteries (1 source) Occlusion and stenosis of bilateral carotid arteries; Translations: [Occlusion and stenosis of bilateral carotid arteries] Onset: 10-19-2023 Chronic Personality disorders (6 sources) Eccentric personality disorder; 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 Residual codes; unclassified (6 sources) Obstructive sleep apnea syndrome; Translations: [Obstructive sleep apnea (adult) (pediatric)] 10-30-2017 Chronic Thyroid disorders (1 source) Nontoxic single thyroid nodule; Translations: [Nontoxic single thyroid nodule] Onset: 02-04-2024 Chronic Past or Other Problems Problem Classification Problem Date Documented Da te Episodic/Chronic Diabetes mellitus without complication (1 source) Impaired glucose tolerance (oral); Translations: [Impaired glucose tolerance (oral)] Onset: 01-24-2024 Episodic Other aftercare (3 sources) Other chcf (current) drug therapy; Translations: [Other chcf (current) drug therapy] Onset: 10-07-2014 10-07-2014 Episodic Other nutritional; endocrine; and metabolic disorders (6 sources) Body mass index (BMI) 27.0-27.9, adult; Translations: [Body mass index (BMI) 25.0-25.9, adult] Onset: 11-27-2014 04-28-2016 Episodic Other screening for suspected conditions (not mental disorders or infectious disease) (1 source) Elevated prostate specific antigen [PSA]; Translations: [Elevated prostate specific antigen [PSA]] Onset: 11-02-2023 Episodic Results Test Name Value Interpretation Reference Range Facility L3300.8200on 09-01-2024 VITAMIN B6 31.4 ug/L Normal 3.4-65.2 [facility] Comment on above: Order Comment: Test( s) 639884-Aldbhrh B6 was developed and its performance characteristics determined by [employer]. It has not been cleared or approved by the Food and Drug Administration. Result Comment: Defi ciency: <3.4 Marginal: 3.4 - 5.1 Adequate: >5.1 Performed By: #### L [id number], L3300.8200, [id number] #### [facility] [address] [place], [place], [id number] Vitamin B1, Thiamineon 09-01 VIT B1 THIAMINE 145.7 nmol/L Normal 66.5-200.0 [facility] Comment on above: Order Comment: Test( s) [id number]-Yqvveen B6 was developed and its performance characteristics determined by [facility]. It has not been cleared or approved by the Food and Drug Administration. Result Comment: Perf ormed at: [facility] [id number] Tripoler: Georgie Cancino MD, Phone: [phone] Performed By: #### L [id number], [id number], [id number] #### [facility] [address] [place], [place], [id number] Absolute lymphocyte countOrd ered By: Saul Michelle on 08-28-2024 Lymphocytes Auto (Unsp spec) [#/Vol] 1.01 10*3/uL 0.83-4.51 [facility] Absolute neutrophil countOrd ered By: Saul Michelle on 08-28-2024 Neutrophils (Bld) [#/Vol] 4.3 10*3/uL 2.0-7.7 [facility] Anion gap in Serum or Plasma Ordered By: Saul Michelle on 08-28-2024 Anion gap [Moles/Vol] 12 mmol/L 5-15 [facility] Automated lymphocyte count a s percentage of total leukocytesOrdered By: Saul Michelle on 08-28-2024 Lymphocytes/100 WBC Auto (Unsp spec) 17.5 % Low 19-41 [facility] BUN/creatinine ratioOrdered By: Saul Michelle on 08-28-2024 Urea nitrogen/Creatinine [Mass ratio] 20.7 mg/mg High 10-20 [facility] Basophil percentageOrdered B y: Saul Michelle on 08-28-2024 Basophils/100 WBC (Bld) 0.5 % 0-1 [facility] Bilirubin Test strip Ql (U)O rdered By: Saul Michelle on 08-28-2024 Bilirubin Ql (U) Negative Negative [facility] Bilirubin, totalOrdered By: Saul Michelle on 08-28-2024 Bilirubin [Mass/Vol] 1.37 mg/dL High 0.00-1.30 [facility] CBC W/Diff, Automatedon 08-04 Absolute Lymph 1.01 X10 3/uL Normal 0.83-4.51 [facility] Comment on above: Order Comment: Test( s) 137045-Lqkeegf B6 was developed and its performance characteristics determined by [facility]. It has not been cleared or approved by the Food and Drug Administration. Performed By: #### L [id number], [id number], [id number] #### [facility] [address] [place], [address] Absolute Neut 4.3 X10 3/uL Normal 2.0-7.7 [facility] Comment on above: Order Comment: Test( s) 134719-Xgyzjaq B6 was developed and its performance characteristics determined by [facility]. It has not been cleared or approved by the Food and Drug Administration. Performed By: #### L [id number], [id number], [id number] #### [facility] [address] [place], [address] Basophils/100 WBC (Bld) 0.5 % Normal 0-1 [facility] Comment on above: Order Comment: Test( s) 639155-Isitjph B6 was developed and its performance characteristics determined by [facility]. It has not been cleared or approved by the Food and Drug Administration. Performed By: #### L [id number], [id number], [id number] #### [facility] [address] [place], [address] Eosinophils/100 WBC (Bld) 0.5 % Normal 0-5 [facility] Comment on above: Order Comment: Test( s) 315897-Gkhtzzc B6 was developed and its performance characteristics determined by [facility]. It has not been cleared or approved by the Food and Drug Administration. Performed By: #### L [id number], [id number], [id number] #### [facility] [address] [place], [address] Erythrocyte distribution width (RBC) [Ratio] 12.8 % Normal 11.6-14.6 [facility] Comment on above: Order Comment: Test( s) 966445-Lqnvhwn B6 was developed and its performance characteristics determined by [facility]. It has not been cleared or approved by the Food and Drug Administration. Performed By: #### L [id number], [id number], [id number] #### [facility] [address] [facility] [place], [address] Hematocrit (Bld) [Volume fraction] 41.0 % Normal 40-54 [facility] Comment on above: Order Comment: Test( s) 044397-Xjtkynq B6 was developed and its performance characteristics determined by [facility]. It has not been cleared or approved by the Food and Drug Administration. Performed By: #### L [id number], [id number], [id number] #### [facility] [address] [facility] [place], [address] Hemoglobin (Bld) [Mass/Vol] 13.9 g/dL Normal 13.0-16.5 [facility] Comment on above: Order Comment: Test( s) 154416-Xuictzw B6 was developed and its performance characteristics determined by [facility]. It has not been cleared or approved by the Food and Drug Administration. Performed By: #### L [id number], [id number], [id number] #### [facility] [address] [facility] [place], [address] IG% 0.200 Normal 0.0-0.9 [facility] Comment on above: Order Comment: Test( s) 725044-Gaanlfy B6 was developed and its performance characteristics determined by [facility]. It has not been cleared or approved by the Food and Drug Administration. Result Comment: IG% - Immature Granulocytes (promyelocytes, myelocytes and metamyelocytes) > 1% indicates that a LEFT SHIFT is Present. Performed By: #### L [id number], [id number], [id number] #### [facility] [address] [place], [address] Lymphocytes/100 WBC (Bld) 17.5 % Low 19-41 [facility] Comment on above: Order Comment: Test( s) 294914-Ybwctso B6 was developed and its performance characteristics determined by [facility]. It has not been cleared or approved by the Food and Drug Administration. Performed By: #### L [id number], [id number], [id number] #### [facility] [address] [place], [address] MCH (RBC) [Entitic mass] 30.3 pg Normal 27.0-32.0 [facility] Comment on above: Order Comment: Test( s) 164591-Xwgzfzx B6 was developed and its performance characteristics determined by [facility]. It has not been cleared or approved by the Food and Drug Administration. Performed By: #### L [id number], [id number], [id number] #### [facility] [address] [facility] [place], [address] MCHC (RBC) [Mass/Vol] 33.9 g/dL Normal 32-36 [facility] Comment on above: Order Comment: Test( s) 412082-Vevjshu B6 was developed and its performance characteristics determined by [facility]. It has not been cleared or approved by the Food and Drug Administration. Performed By: #### L [id number], [id number], [id number] #### [facility] [address] [facility] [place], [address] MCV (RBC) [Entitic vol] 89.3 fL Normal 80-94 [facility] Comment on above: Order Comment: Test( s) 832445-Uomwxve B6 was developed and its performance characteristics determined by [facility]. It has not been cleared or approved by the Food and Drug Administration. Performed By: #### L [id number], [id number], [id number] #### [facility] [address], [address] Monocytes/100 WBC (Bld) 6.3 % Normal 0-10 [facility] Comment on above: Order Comment: Test( s) 309952-Exphseg B6 was developed and its performance characteristics determined by [facility]. It has not been cleared or approved by the Food and Drug Administration. Performed By: #### L 3300.8000, [id number], [id number] #### [facility] [address] [place], [address] Neutrophils/100 WBC (Bld) 75.0 % High 47-70 [facility] Comment on above: Order Comment: Test( s) 119958-Tzgbyyr B6 was developed and its performance characteristics determined by [facility]. It has not been cleared or approved by the Food and Drug Administration. Performed By: #### L 3300.8000, [id number], [id number] #### [facility] [address] [place], [address] Nucleated RBC (Bld) [#/Vol] 0 10*3/uL Normal 0-5 [facility] Comment on above: Order Comment: Test( s) 328360-Zupuogb B6 was developed and its performance characteristics determined by [facility]. It has not been cleared or approved by the Food and Drug Administration. Performed By: #### L 3300.8000, [id number], [id number] #### [facility] [address] [place], [address] Platelet mean volume (Bld) [Entitic vol] 11.5 fL Normal 6.2-12.0 [facility] Comment on above: Order Comment: Test( s) 254704-Whxwazs B6 was developed and its performance characteristics determined by [facility]. It has not been cleared or approved by the Food and Drug Administration. Performed By: #### L 3300.8000, [id number], [id number] #### [facility] [address] [place], [address] Platelets (Bld) [#/Vol] 204 10*3/uL Normal 150-450 [facility] Comment on above: Order Comment: Test( s) 869255-Lgrmmxc B6 was developed and its performance characteristics determined by [facility]. It has not been cleared or approved by the Food and Drug Administration. Performed By: #### L 3300.8000, [id number], [id number] #### [facility] [address] [place], [address] RBC (Bld) [#/Vol] 4.59 10*6/uL Low 4.6-6.2 [facility] Comment on above: Order Comment: Test( s) 362759-Psoqnsx B6 was developed and its performance characteristics determined by [facility]. It has not been cleared or approved by the Food and Drug Administration. Performed By: #### L [id number], [id number], [id number] #### [facility] [address] [place], [address] RDW SD 41.9 fl Normal 35.1-43.9 [facility] Comment on above: Order Comment: Test( s) 744563-Vuyggaz B6 was developed and its performance characteristics determined by [facility]. It has not been cleared or approved by the Food and Drug Administration. Performed By: #### L [id number], [id number], [id number] #### [facility] [address] [place], [address] WBC (Bld) [#/Vol] 5.8 10*3/uL Normal 4.4-11.0 [facility] Comment on above: Order Comment: Test( s) 993455-Wjwwvgt B6 was developed and its performance characteristics determined by [facility]. It has not been cleared or approved by the Food and Drug Administration. Performed By: #### L [id number], [id number], [id number] #### [facility] [address] [place], [address] Calculated very low density lipoprotein (VLDL) cholesterol measurementOrdered By: Saul Michelle on 08-28-2024 Calculated very low density lipoprotein (VLDL) cholesterol measurement 22 mg/dL 5-40 [facility] Carbon dioxide, total [Moles /volume] in Central venous bloodOrdered By: Saul Michelle on 08-28-2024 CO2 [Moles/Vol] 24.9 mmol/L 21.0-32.0 [facility] Chloride assayOrdered By: Nicolasa Michelle on 08-28-2024 Chloride [Moles/Vol] 101 mmol/L 98-108 [facility] Comprehensive Metabolic Prof ilon 08-28-2024 Albumin [Mass/Vol] 4.2 g/dL Normal 3.4-4.8 [facility] Comment on above: Order Comment: Test( s) 248261-Kueoufs B6 was developed and its performance characteristics determined by [facility]. It has not been cleared or approved by the Food and Drug Administration. Performed By: #### L [id number], [id number], [id number] #### [facility] [address] [place], [address] Albumin/Globulin [Mass ratio] 1.4 {ratio} Normal 0.9-2.4 [facility] Comment on above: Order Comment: Test( s) 623676-Wujecgw B6 was developed and its performance characteristics determined by [facility]. It has not been cleared or approved by the Food and Drug Administration. Performed By: #### L [id number], [id number], [id number] #### [facility] [address] [place], [address] ALK PHOS 99 U/L Normal 40-129 [facility] Comment on above: Order Comment: Test( s) 902418-Qddckvg B6 was developed and its performance characteristics determined by [facility]. It has not been cleared or approved by the Food and Drug Administration. Performed By: #### L [id number], [id number], [id number] #### [facility] [address] [place], [address] ALT [Catalytic activity/Vol] 27 U/L Normal <=46 [facility] Comment on above: Order Comment: Test( s) 559831-Dldlvia B6 was developed and its performance characteristics determined by [facility]. It has not been cleared or approved by the Food and Drug Administration. Performed By: #### L [id number], [id number], [id number] #### [facility] [address] [place], [address] AST [Catalytic activity/Vol] 28 U/L Normal <=37 [facility] Comment on above: Order Comment: Test( s) 956126-Xilywbv B6 was developed and its performance characteristics determined by [facility]. It has not been cleared or approved by the Food and Drug Administration. Performed By: #### L 3300.8000, L3300.8200, [id number] #### [facility] [address] [place], [address] Bilirubin [Mass/Vol] 1.37 mg/dL High 0.00-1.30 [facility] Comment on above: Order Comment: Test( s) 263475-Fqkzafp B6 was developed and its performance characteristics determined by [facility]. It has not been cleared or approved by the Food and Drug Administration. Performed By: #### L 3300.8000, L3300.8200, [id number] #### [facility] [address] [place], [address] BUN/CRE 20.7 RATIO High 10-20 [facility] Comment on above: Order Comment: Test( s) 869653-Qorfwoo B6 was developed and its performance characteristics determined by [facility]. It has not been cleared or approved by the Food and Drug Administration. Performed By: #### L 3300.8000, L3300.8200, [id number] #### [facility] [address] [place], [address] Calcium [Mass/Vol] 9.6 mg/dL Normal 7.6-11.0 [facility] Comment on above: Order Comment: Test( s) 698135-Tjpymgm B6 was developed and its performance characteristics determined by [facility]. It has not been cleared or approved by the Food and Drug Administration. Performed By: #### L 3300.8000, L3300.8200, [id number] #### [facility] [address] [place], [address] Chloride [Moles/Vol] 101 mmol/L Normal 98-108 [facility] Comment on above: Order Comment: Test( s) 877413-Uvfbynk B6 was developed and its performance characteristics determined by [facility]. It has not been cleared or approved by the Food and Drug Administration. Performed By: #### L 3300.8000, L3300.8200, [id number] #### [facility] [address] [place], [address] CO2 [Moles/Vol] 24.9 mmol/L Normal 21.0-32.0 [facility] Comment on above: Order Comment: Test( s) 148612-Tnxlyzr B6 was developed and its performance characteristics determined by [facility]. It has not been cleared or approved by the Food and Drug Administration. Performed By: #### L 3300.8000, L3300.8200, [id number] #### [facility] [address] [place], [address] Creatinine [Mass/Vol] 1.00 mg/dL Normal 0.70-1.20 [facility] Comment on above: Order Comment: Test( s) 625630-Bgzvenv B6 was developed and its performance characteristics determined by [facility]. It has not been cleared or approved by the Food and Drug Administration. Performed By: #### L 3300.8000, L3300.8200, [id number] #### [facility] [address] [place], [address] GAP 12 Normal 5-15 [facility] Comment on above: Order Comment: Test( s) 334253-Lgixaxa B6 was developed and its performance characteristics determined by [facility]. It has not been cleared or approved by the Food and Drug Administration. Performed By: #### L 3300.8000, L3300.8200, [id number] #### [facility] [address] [place], [address] GFR/1.73 sq M.predicted among non-blacks MDRD (S/P/Bld) [Vol rate/Area] 79 mL/min/{1.73_m2} Normal >60 [facility] Comment on above: Order Comment: Test( s) 113800-Ctgjaoz B6 was developed and its performance characteristics determined by [facility]. It has not been cleared or approved by the Food and Drug Administration. Result Comment: mL/m in/1.73m2 CKD-EPI Creatinine Equation (2020) Performed By: #### L 3300.8000, L3300.8200, [id number] #### [facility] [address] [place], [address] Globulin (S) [Mass/Vol] 3.0 g/dL Normal 2.2-4.2 [facility] Comment on above: Order Comment: Test( s) 216150-Nctshzq B6 was developed and its performance characteristics determined by [facility]. It has not been cleared or approved by the Food and Drug Administration. Performed By: #### L 3300.8000, L3300.8200, [id number] #### [facility] [address] [place], [address] Glucose [Mass/Vol] 105 mg/dL High 70-99 [facility] Comment on above: Order Comment: Test( s) 691701-Bhdyyae B6 was developed and its performance characteristics determined by [facility]. It has not been cleared or approved by the Food and Drug Administration. Performed By: #### L 3300.8000, L3300.8200, [id number] #### [facility] [address] [place], [address] Potassium [Moles/Vol] 3.6 mmol/L Normal 3.3-5.1 [facility] Comment on above: Order Comment: Test( s) 517676-Shqspwg B6 was developed and its performance characteristics determined by [facility]. It has not been cleared or approved by the Food and Drug Administration. Performed By: #### L 3300.8000, L3300.8200, [id number] #### [facility] [address] [place], [address] Sodium [Moles/Vol] 138 mmol/L Normal 133-145 [facility] Comment on above: Order Comment: Test( s) 104857-Xtfimkp B6 was developed and its performance characteristics determined by [facility]. It has not been cleared or approved by the Food and Drug Administration. Performed By: #### L 3300.8000, L3300.8200, [id number] #### [facility] [address] [place], [address] T PROT 7.2 g/dL Normal 5.9-8.4 [facility] Comment on above: Order Comment: Test( s) 187434-Gyujddf B6 was developed and its performance characteristics determined by [facility]. It has not been cleared or approved by the Food and Drug Administration. Performed By: #### L 3300.8000, L3300.8200, [id number] #### [facility] [address] [place], [address] Urea nitrogen [Mass/Vol] 21 mg/dL High 4-19 [facility] Comment on above: Order Comment: Test( s) 794232-Xkctdkz B6 was developed and its performance characteristics determined by [facility]. It has not been cleared or approved by the Food and Drug Administration. Performed By: #### L 3300.8000, L3300.8200, [id number] #### [facility] [address] [place], [address] Eosinophil percentageOrdered By: Saul Michelle on 08-28-2024 Eosinophils/100 WBC (Bld) 0.5 % 0-5 [facility] Erythrocyte distribution wid th ratioOrdered By: Saul Michelle on 08-28-2024 Erythrocyte distribution width (RBC) [Ratio] 12.8 % 11.6-14.6 [facility] Erythrocyte distribution wid th standard deviationOrdered By: Saul Michelle on 08-28-2024 Erythrocyte distribution width (RBC) [Ratio] 41.9 fl 35.1-43.9 [facility] Glomerular filtration rate ( GFR) estimation/1.73 sq m using serum, plasma, or whole bOrdered By: Saul Michelle on 08-28-2024 GFR/1.73 sq M.predicted among non-blacks MDRD (S/P/Bld) [Vol rate/Area] 79 mL/min/{1.73_m2} >60 [facility] Comment on above: mL/min/1.73m2 CKD-EP I Creatinine Equation (2020) Hematocrit Auto (Bld) [Volum e fraction]Ordered By: Saul Michelle on 08-28-2024 Hematocrit (Bld) [Volume fraction] 41.0 % 40-54 [facility] Hemoglobin A1con 08-28-2024 HbA1c (Bld) [Mass fraction] 6.0 % High <=5.6 [facility] Comment on above: Order Comment: Test( s) 165745-Nmpskwk B6 was developed and its performance characteristics determined by [facility]. It has not been cleared or approved by the Food and Drug Administration. Result Comment: Norm al < 5.7 % Prediabetic 5.7 - 6.4 % Diabetic >or= 6.5 % Please note range changes. Performed By: #### L 3300.8000, L3300.8200, [id number] #### [facility] [address] [place], [address] Hemoglobin A1c percentageOrd ered By: Saul Michelle on 08-28-2024 HbA1c (Bld) [Mass fraction] 6.0 % High <5.7 [facility] Comment on above: Normal < 5.7 % Predi abetic 5.7 - 6.4 % Diabetic >or= 6.5 % Please note range changes. Hemoglobin measurementOrdere d By: Saul Michelle on 08-28-2024 Hemoglobin (Bld) [Mass/Vol] 13.9 g/dL 13.0-16.5 [facility] Immature granulocytes/100 WB C Auto (Bld)Ordered By: Saul Michelle on 08-28-2024 Immature granulocytes/100 WBC (Bld) 0.200 % 0.0-0.9 [facility] Comment on above: IG% - Immature Granu locytes (promyelocytes, myelocytes and metamyelocytes) > 1% indicates that a LEFT SHIFT is Present. Ketones Test strip Ql (U)Ord ered By: Saul Michelle on 08-28-2024 Ketones Ql (U) Negative Negative [facility] LDL calc ser/plasOrdered By: Saul Michelle on 08-28-2024 Cholesterol in LDL [Mass/Vol] 77 mg/dL [facility] Comment on above: Lzyiembscw=127-774 m g/dL & Higher Qqse=381 mg/dL or greater Laboratory - Chemistry and C hemistry - challengeOrdered By: Saul Michelle on 08-28-2024 AST [Catalytic activity/Vol] 28 U/L <38 [facility] Lipid Profileon 08-28-2024 CHOL:HDL 3.24 Normal [facility] Comment on above: Order Comment: Test( s) 536459-Occtxny B6 was developed and its performance characteristics determined by [facility] [employer]. It has not been cleared or approved by the Food and Drug Administration. Performed By: #### L 3300.8000, L3300.8200, [id number] #### [facility] [address] [place], [address] Cholesterol [Mass/Vol] 144 mg/dL Normal <=200 [facility] Comment on above: Order Comment: Test( s) 948720-Fomqsnk B6 was developed and its performance characteristics determined by [facility]. It has not been cleared or approved by the Food and Drug Administration. Result Comment: Chol esterol level, Desirable <200 mg/dL Borderline high cholesterol 200-239 mg/dL High cholesterol >=240 mg/dL Recommendations of the NCEP Adult Treatment Panel for the following risk-cutoff thresholds for the [place] population. Performed By: #### L 3300.8000, L3300.8200, [id number] #### [facility] [address] [place], [address] Cholesterol in HDL [Mass/Vol] 45 mg/dL Normal [facility] Comment on above: Order Comment: Test( s) 949545-Egwoggc B6 was developed and its performance characteristics determined by [facility]. It has not been cleared or approved by the Food and Drug Administration. Result Comment: Amelie onal Cholesterol Education Program (NCEP) guidelines: <40 mg/dL: Low HDL-cholesterol (major risk factor for CHD) >= 60 mg/dL: High HDL-cholesterol (negative risk factor for CHD) HDL-cholesterol is affected by a number of factors, e.g. smoking, exercise, hormones, sex and age. Performed By: #### L 3300.8000, L3300.8200, [id number] #### [facility] [address] [place], [address] Cholesterol in LDL [Mass/Vol] 77 mg/dL Normal [facility] Comment on above: Order Comment: Test( s) 820250-Iceodrt B6 was developed and its performance characteristics determined by [facility]. It has not been cleared or approved by the Food and Drug Administration. Result Comment: Bord ojeqrq=350-687 mg/dL Higher Ysfd=038 mg/dL or greater Performed By: #### L 3300.8000, L3300.8200, [id number] #### [facility] [address] [place], [address] Cholesterol in VLDL [Mass/Vol] 22 mg/dL Normal 5-40 [facility] Comment on above: Order Comment: Test( s) 177113-Rtrbyup B6 was developed and its performance characteristics determined by [facility]. It has not been cleared or approved by the Food and Drug Administration. Performed By: #### L 3300.8000, L3300.8200, [id number] #### [facility] [address] [place], [address] Triglyceride [Mass/Vol] 111 mg/dL Normal [facility] Comment on above: Order Comment: Test( s) 786708-Vjtfbyf B6 was developed and its performance characteristics determined by [employer]. It has not been cleared or approved by the Food and Drug Administration. Result Comment: The drugs N-Acetylcysteine and Metamizole may falsely depress this assay. Normal range: <150 mg/dL Borderline High: 150-199 mg/dL High: 200-499 mg/dL Very High: >500 mg/dL Performed By: #### L 3300.8000, L3300.8200, [id number] #### [facility] [address] [place], [address] MCV (mean corpuscular volume ) determinationOrdered By: Saul Michelle on 08-28-2024 MCV (RBC) [Entitic vol] 89.3 fL 80-94 [facility] Mean corpuscular hemoglobin (MCH) determinationOrdered By: Saul Michelle on 08-28-2024 MCH (RBC) [Entitic mass] 30.3 pg 27.0-32.0 [facility] Mean corpuscular hemoglobin concentration (MCHC) determinationOrdered By: Saul Michelle on 08-28-2024 MCHC (RBC) [Mass/Vol] 33.9 g/dL 32-36 [facility] Mean platelet volume determi nationOrdered By: Saul Michelle on 08-28-2024 Platelet mean volume (Bld) [Entitic vol] 11.5 fL 6.2-12.0 [facility] Microscopic analysis of urin e for red blood cells (RBC)Ordered By: Saul Michelle on 08-28-2024 Microscopic analysis of urine for red blood cells (RBC) 0 SEEN /hpf 0-5 [facility] Monocyte percentageOrdered B y: Saul Michelle on 08-28-2024 Monocytes/100 WBC (Bld) 6.3 % 0-10 [facility] Mucus LM Ql (Urine sed)Order ed By: Saul Michelle on 08-28-2024 Mucus Ql (Urine sed) 0 SEEN /hpf [facility] Neutrophil percentageOrdered By: Saul Michelle on 08-28-2024 Neutrophils/100 WBC (Bld) 75.0 % High 47-70 [facility] Nitrite Test strip Ql (U)Ord ered By: Saul Michelle on 08-28-2024 Nitrite Ql (U) Negative Negative [facility] Nucleated red blood cell per centageOrdered By: Saul Michelle on 08-28-2024 Nucleated RBC/100 WBC (Bld) [Ratio] 0 % 0-5 [facility] Platelet countOrdered By: Nicolasa Michelle on 08-28-2024 Platelets (Bld) [#/Vol] 204 10*3/uL 150-450 [facility] Potassium measurement (mass/ volume)Ordered By: Saul Michelle on 08-28-2024 Potassium (Unsp spec) [Mass/Vol] 3.6 mmol/L 3.3-5.1 [facility] Protein Test strip Ql (U)Ord ered By: Saul Michelle on 08-28-2024 Protein Ql (U) Negative Negative [facility] RBC Auto (Bld) [#/Vol]Ordere d By: Saul Michelle on 08-28-2024 RBC (Bld) [#/Vol] 4.59 10*6/uL Low 4.6-6.2 [facility] Screening total cholesterol/ high density lipoprotein (HDL) cholesterol ratioOrdered By: Saul Michelle on 08-28-2024 Cholesterol.total/Suzanne sterol in HDL [Mass ratio] 3.24 {ratio} [facility] Serum creatinine measurement (mass/volume)Ordered By: Saul Michelle on 08-28-2024 Creatinine [Mass/Vol] 1.00 mg/dL 0.70-1.20 [facility] Serum globulin measurementOr dered By: Saul Michelle on 08-28-2024 Globulin (S) [Mass/Vol] 3.0 g/dL 2.2-4.2 [facility] Serum glucose measurement (m ass/volume)Ordered By: Saul Michelle on 08-28-2024 Glucose [Mass/Vol] 105 mg/dL High 70-99 [facility] Serum or plasma alanine chamorro otransferase (ALT) measurementOrdered By: Saul Michelle on 08-28-2024 ALT [Catalytic activity/Vol] 27 U/L <47 [facility] Serum or plasma albumin john urement (mass/volume)Ordered By: Saul Michelle on 08-28-2024 Albumin [Mass/Vol] 4.2 g/dL 3.4-4.8 [facility] Serum or plasma albumin/glob ulin mass ratioOrdered By: Saul Michelle on 08-28-2024 Albumin/Globulin [Mass ratio] 1.4 {ratio} 0.9-2.4 [facility] Serum or plasma alkaline campbell sphatase measurementOrdered By: Saul Michelle on 08-28-2024 ALP [Catalytic activity/Vol] 99 U/L 40-129 [facility] Serum or plasma calcium john urement (mass/volume)Ordered By: Saul Michelle on 08-28-2024 Calcium [Mass/Vol] 9.6 mg/dL 7.6-11.0 [facility] Serum or plasma cholesterol in HDL measurement (mass/volume)Ordered By: Saul Michelle on 08-28-2024 Cholesterol in HDL [Mass/Vol] 45 mg/dL >40 [facility] Comment on above: National Cholesterol Education Program (NCEP) guidelines:<40 mg/dL: Low HDL-cholesterol (major risk factor for CHD)>= 60 mg/dL: High HDL-cholesterol (negative risk factor for CHD)HDL-cholesterol is affected by a number of factors, e.g. smoking, exercise, hormones, sex and age. Serum or plasma cholesterol measurement (mass/volume)Ordered By: Saul Michelle on 08-28-2024 Cholesterol [Mass/Vol] 144 mg/dL <201 [facility] Comment on above: Cholesterol level, D esirable <200 mg/dLBorderline high cholesterol 200-239 mg/dLHigh cholesterol >=240 mg/dLRecommendations of the NCEP Adult Treatment Panel for the following risk-cutoff thresholds for the [place] population. Serum or plasma thiamine ayden surement (mass/volume)Ordered By: Saul Michelle on 08-28-2024 Thiamine [Mass/Vol] 145.7 nmol/L 66.5-200.0 [facility] Comment on above: Performed at: [address] [id number] Director: Georgie Cancino MD, Phone: [phone] Serum or plasma urea nitroge n measurement (mass/volume)Ordered By: Saul Michelle on 08-28-2024 Urea nitrogen [Mass/Vol] 21 mg/dL High 4-19 [facility] Sodium levelOrdered By: Saul Michelle on 08-28-2024 Sodium [Moles/Vol] 138 mmol/L 133-145 [facility] Squamous epithelial cells de tection in urine sediment by light microscopyOrdered By: Saul Michelle on 08-28-2024 Epithelial cells.squamous LM Ql (Urine sed) 0 SEEN /hpf 0-5 [facility] Total proteinOrdered By: Peter Michelle on 08-28-2024 Protein [Mass/Vol] 7.2 g/dL 5.9-8.4 [facility] Triglycerides measurementOrd ered By: Saul Michelle on 08-28-2024 Triglyceride [Mass/Vol] 111 mg/dL <199 [facility] Comment on above: The drugs N-Acetylcy steine and Metamizole may falsely depress this assay. Normal range: <150 mg/dLBorderline High: 150-199 mg/dLHigh: 200-499 mg/dLVery High: >500 mg/dL Urinalysis, Completeon 08-28 BACTERIA 0 SEEN Normal None Seen [facility] Comment on above: Order Comment: CLEAN CATCH Performed By: #### L 3300.8000, L3300.8200, [id number] #### [facility] [address] [place], [address] EPI,SQUAMOUS 0 SEEN Normal 0-5 [facility] Comment on above: Order Comment: CLEAN CATCH Performed By: #### L 3300.8000, L3300.8200, [id number] #### [facility] [address] [place], [address] Mucus Ql (Urine sed) 0 SEEN Normal [facility] Comment on above: Order Comment: CLEAN CATCH Performed By: #### L 3300.8000, L3300.8200, [id number] #### [facility] [address] [place], [address] RBC 0 SEEN Normal 0-5 [facility] Comment on above: Order Comment: CLEAN CATCH Performed By: #### L 3300.8000, L3300.8200, [id number] #### [facility] [address] [place], [address] WBC 0 SEEN Normal 0-5 [facility] Comment on above: Order Comment: CLEAN CATCH Performed By: #### L 3300.8000, L3300.8200, [id number] #### [facility] [address] [place], [address] Urine clarityOrdered By: Peter Michelle on 08-28-2024 Clarity (U) Clear Clear [facility] Urine color determinationOrd ered By: Saul Michelle on 08-28-2024 Color (U) Yellow Yellow [facility] Urine glucose detectionOrder ed By: Saul Michelle on 08-28-2024 Glucose Ql (U) Normal mg/dl Normal [facility] Urine leukocyte esterase det ection by dipstickOrdered By: Saul Michelle on 08-28-2024 Leukocyte esterase Test strip Ql (U) Negative Negative [facility] Urine pHOrdered By: Saul phillips on 08-28-2024 pH (U) 6.5 [pH] 5.0 - 8.0 [facility] Urine sediment bacteria coun t by microscopy (number/high power field)Ordered By: Saul Michelle on 08-28-2024 Bacteria LM.HPF (Urine sed) [#/Area] 0 /[HPF] None Seen [facility] Urine specific gravity measu rementOrdered By: Saul Michelle on 08-28-2024 Specific gravity (U) [Rel density] 1.015 1.002-1.030 [facility] Urine urobilinogen measureme ntOrdered By: Saul Michelle on 08-28-2024 Urobilinogen Ql (U) Normal mg/dl Normal [facility] Vitamin B12on 08-28-2024 Cobalamin (Vitamin B12) [Mass/Vol] 599 pg/mL Normal 180-914 [facility] Comment on above: Order Comment: Test( s) 723947-Qvzqmsx B6 was developed and its performance characteristics determined by [facility]. It has not been cleared or approved by the Food and Drug Administration. Performed By: #### L 3300.8000, L3300.8200, [id number] #### [facility] [address] [place], [address] Vitamin B12 ser/plasOrdered By: Saul Michelle on 08-28-2024 Cobalamin (Vitamin B12) [Mass/Vol] 599 pg/mL 180-914 [facility] White blood cell (WBC) count Ordered By: Saul Michelle on 08-28-2024 WBC (Bld) [#/Vol] 5.8 10*3/uL 4.4-11.0 [facility] White blood cell countOrdere d By: Saul Michelle on 08-28-2024 White blood cell count 0 SEEN /hpf 0-5 [facility] Cardiology Visit Reporton Cardiology Visit Report [facility] [address] [place] [address] OFFICE VISIT Date of Service: 07/03/24 MR#: [id number] Acct: [id number] Name: MANN GUAJARDO Rep #: [id number] : 1950 Provider: Dr. Eric Gooden MD Age/Sex: 74/M Location: [facility] Status: Signed HPI HPI History of Present Illness Details: MANN GUAJARDO, is a 74 year old white male who presents to the office today for for outpatient cardiovascular follow-up of his history of hyperlipidemia and hypertension. He has been doing quite well on his current regimen. He did have an echocardiogram performed 2 years ago demonstrating ejection fraction of 60%. He denies chest, arm, jaw, or neck discomfort. He denies palpitations. He denies bilateral lower extremity edema. He denies claudication. He denies shortness of breath with activity, shortness of breath at rest, orthopnea, or PND. He denies chronic cough. He denies significant, sudden weight gain. He denies lightheadedness, dizziness, near-syncope, or syncope. He denies blood in urine, blood in stool, or epistaxis. He denies fever with chills. He denies myalgia. He denies fatigue. His exercise level has remained stable. Intake Vital Signs 03/15/23 10:35 07/03/24 09:07 Height 5 ft 7 in 5 ft 7 in Weight: 184 lb BMI 28.8 BP 142/78 H Blood Pressure Location Lt brachial Position Sitting Respiration 16 Pulse 88 Pulse Source Monitor Intake Visit Reasons: 1 Y FU Climatologist Required: No Accompanied by: Self Is patient in pain?: No Allergies No Known Allergies Allergy (Verified 07/03/24 09:12) Medications ???Medication ???Instructions ???Recorded ???Confirmed ???Type aspirin 81 mg chewable tablet 81 mg PO DAILY@0800 ##30 09/08/14 07/03/24 Rx omega-3 fatty acids 1,000 mg 1,000 mg PO DAILY 10/30/17 5 History capsule (Fish Oil Concentrate) multivitamin 1 tab PO DAILY 11/07/17 07/03/24 H istory ascorbic acid (vitamin C) 500 mg 500 mg PO DAILY 12/06/18 07/03/24 History capsule atorvastatin 40 mg tablet 40 mg PO QHS #90 tabs 04/22/1903/29 Rx valsartan 160 1 tab PO DAILY 01/05/22 07/03/24 H istory mg-hydrochlorothiazide 25 mg tablet vitamin B complex 1 tab PO DAILY 03/15/23 07/03/24 H istory Have you fallen in the past year?: No PFSH Medical History Wears glasses High cholesterol Non-smoker Leg cramps History of edema Cardiology follow-up encounter TIA (transient ischemic attack) Essential hypertension JACK (obstructive sleep apnea) Cerebral artery occlusion with cerebral infarction Hyperlipidemia Surgical History S/P left inguinal hernia repair History of colonoscopy History of ankle surgery Family History Father Cancer Brain Social History Smoking Status: Never smoker alcohol intake: never substance use type: does not use caffeine: Yes (rarely) ROS Const Const: Negative for fatigue, weakness, headache(s), daytime sleepiness or difficulty sleeping ENT ENT: Negative for headache(s), dizziness or Nosebleed/epistaxis Cardio Chest Pain: No Palpitations: No Edema: None Resp Respiratory: Negative for SOB with activity, SOB at rest, SOB orthopnea SOB lying down or Cough GI GI: Negative nausea, vomiting or heartburn Neuro Neuro: Negative for dizziness, lightheadedness, near syncope, headache(s) or weakness Endo Endo: Negative for fatigue Cardiology Exam Const Appearance: cooperative, healthy appearing, comfortable and no acute distress Nutritional Appearance: well nourished and overweight Orientation: alert, awake and oriented x3 Head Head: normal to inspection Ears: hearing grossly normal bilaterally Nose: external nose normal Face and Sinus: face symmetric Mouth: moist mucous membranes Eyes General: appearance normal, both eyes and all related structures Eyelids: eyelids normal EOM: EOM intact bilaterally Neck Neck: normal visual inspection and no JVD Carotids: normal carotid upstroke Chest Chest inspection: normal inspection of the chest, symmetric chest movement and normal respiratory effort; Negative cough Auscultation: Bilateral: Clear to Auscultation Cardio Rate: regular rate Rhythm: regular rhythm Heart sounds: S1 normal, S2 normal and murmur; Negative rub or gallop Murmur: Grade 1/6, soft and DARY loudest primary aortic area GI GI: normal to inspection Neuro General: patient alert, patient awake, patient oriented x3 and CN's II-XI intact bilaterally Skin Skin: no rashes or lesions noted Extremities Pulses: Normal: Right Posterior Tibial (more content not included)... Normal [facility] Thyroidon 01-17-2024 Thyroid [facility] [address] [place], [place] [id number] Thyroid MR#: [id number] Acct: [id number] Name: MANN GUAJARDO Rep #: [id number] : 1950 M 73 From: Bashir Floyd DO PCP: Dr. Saul Michelle MD Status: REG CLI Study: Thyroid Date of Exam: 01/17/24 Exam# [id number] Ordering Dr: Saul Michelle MD [id number] INDICATION: THY NODULE EXAMINATION: Ultrasound US Thyroid (eg thyroid, parathyroid, parotid) TECHNIQUE: Dahl scale and color doppler imaging was performed of the thyroid gland. COMPARISON: August 24, 2022 FINDINGS: RIGHT THYROID LOBE: 3.4 x 1.4 x 1.8 cm. Homogeneous echotexture with normal vascularity. [There is a 7 x 5 x 5 mm upper pole cyst, minimally larger than on previous study. A heterogeneous solid mid thyroid nodule is noted measuring 9 x 10 x 6 mm, similar to previous study. A cystic nodule seen on previous study is not appreciated. LEFT THYROID LOBE: 4.3 x 1.3 x 1.6 cm. Homogeneous echotexture with normal vascularity. [No thyroid nodules are present. ISTHMUS: 3 mm. No thyroid nodules are present. US/Thyroid IMPRESSION: Minimally largest cyst at the upper pole of the right thyroid lobe. Roughly stable solid heterogeneous right mid thyroid nodule. Electronically Signed: Bashir Floyd DO at 10:00 EST Reading Location ID and State: [facility] / [place] Tel [phone], Service support , CC: Dr. 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 It has not been cleared or approved by the Food and Drug Administration. Result Comment: Perf ormed at: - [facility] [address] [id number] Tripoler: Georgie Cancino MD, Phone: [phone] Performed By: #### L 3300.8000, L3300.8200, L400.0001 #### [facility] [place], [address] CBC W/Diff, Automatedon 10-3 -2023 Absolute Lymph 0.84 X10 3/uL Normal 0.83-4.51 [facility] Comment on above: Order Comment: Order Date: 08/30/23 Order Info: 018- - CBCD Performed By: #### L 100.0100, L500.4100, L501.9985, L500.4050, L503.0105 #### [facility] [address] [place], [address] Absolute Neut 3.3 X10 3/uL Normal 2.0-7.7 [facility] Comment on above: Order Comment: Order Date: 08/30/23 Order Info: 018- - CBCD Performed By: #### L 100.0100, L500.4100, L501.9985, L500.4050, L503.0105 #### [facility] [address] [place], [address] Basophils/100 WBC (Bld) 0.4 % Normal 0-1 [facility] Comment on above: Order Comment: Order Date: 08/30/23 Order Info: 018- - CBCD Performed By: #### L 100.0100, L500.4100, L501.9985, L500.4050, L503.0105 #### [facility] [address] [place], [address] Eosinophils/100 WBC (Bld) 0.7 % Normal 0-5 [facility] Comment on above: Order Comment: Order Date: 08/30/23 Order Info: 0184- - CBCD Performed By: #### L 100.0100, L500.4100, L501.9985, L500.4050, L503.0105 #### [facility] [address] [place], [address] Erythrocyte distribution width (RBC) [Ratio] 12.5 % Normal 11.6-14.6 [facility] Comment on above: Order Comment: Order Date: 08/30/23 Order Info: 0184-1 - CBCD Performed By: #### L 100.0100, L500.4100, L501.9985, L500.4050, L503.0105 #### [facility] [address] [place], [address] Hematocrit (Bld) [Volume fraction] 43.5 % Normal 40-54 [facility] Comment on above: Order Comment: Order Date: 08/30/23 Order Info: 0184-1 - CBCD Performed By: #### L 100.0100, L500.4100, L501.9985, L500.4050, L503.0105 #### [facility] [address] [place], [address] Hemoglobin (Bld) [Mass/Vol] 14.5 g/dL Normal 13.0-16.5 [facility] Comment on above: Order Comment: Order Date: 08/30/23 Order Info: 0184-1 - CBCD Performed By: #### L 100.0100, L500.4100, L501.9985, L500.4050, L503.0105 #### [facility] [address] [place], [address] IG% 0.200 Normal 0.0-0.9 [facility] Comment on above: Order Comment: Order Date: 08/30/23 Order Info: 0184-1 - CBCD Result Comment: IG% - Immature Granulocytes (promyelocytes, myelocytes and metamyelocytes) > 1% indicates that a LEFT SHIFT is Present. Performed By: #### L 100.0100, L500.4100, L501.9985, L500.4050, L503.0105 #### [facility] [address] [place], [address] Lymphocytes/100 WBC (Bld) 18.5 % Low 19-41 [facility] Comment on above: Order Comment: Order Date: 08/30/23 Order Info: 018- - CBCD Performed By: #### L 100.0100, L500.4100, L501.9985, L500.4050, L503.0105 #### [facility] [address] [place], [address] MCH (RBC) [Entitic mass] 30.0 pg Normal 27.0-32.0 [facility] Comment on above: Order Comment: Order Date: 08/30/23 Order Info: 018- - CBCD Performed By: #### L 100.0100, L500.4100, L501.9985, L500.4050, L503.0105 #### [facility] [address] [facility] [place], [address] MCHC (RBC) [Mass/Vol] 33.3 g/dL Normal 32-36 [facility] Comment on above: Order Comment: Order Date: 08/30/23 Order Info: 018- - CBCD Performed By: #### L 100.0100, L500.4100, L501.9985, L500.4050, L503.0105 #### [facility] [address] [facility] [place], [address] MCV (RBC) [Entitic vol] 90.1 fL Normal 80-94 [facility] Comment on above: Order Comment: Order Date: 08/30/23 Order Info: 018- - CBCD Performed By: #### L 100.0100, L500.4100, L501.9985, L500.4050, L503.0105 #### [facility] [address] [place], [address] Monocytes/100 WBC (Bld) 8.6 % Normal 0-10 [facility] Comment on above: Order Comment: Order Date: 08/30/23 Order Info: 018- - CBCD Performed By: #### L 100.0100, L500.4100, L501.9985, L500.4050, L503.0105 #### [facility] [address] [place], [address] Neutrophils/100 WBC (Bld) 71.6 % High 47-70 [facility] Comment on above: Order Comment: Order Date: 08/30/23 Order Info: 0184- - CBCD Performed By: #### L 100.0100, L500.4100, L501.9985, L500.4050, L503.0105 #### [facility] [address] [place], [address] Nucleated RBC (Bld) [#/Vol] 0 10*3/uL Normal 0-5 [facility] Comment on above: Order Comment: Order Date: 08/30/23 Order Info: 018- - CBCD Performed By: #### L 100.0100, L500.4100, L501.9985, L500.4050, L503.0105 #### [facility] [address] [place], [address] Platelet mean volume (Bld) [Entitic vol] 11.5 fL Normal 6.2-12.0 [facility] Comment on above: Order Comment: Order Date: 08/30/23 Order Info: 018- - CBCD Performed By: #### L 100.0100, L500.4100, L501.9985, L500.4050, L503.0105 #### [facility] [address] [place], [address] Platelets (Bld) [#/Vol] 204 10*3/uL Normal 150-450 [facility] Comment on above: Order Comment: Order Date: 08/30/23 Order Info: 0184-1 - CBCD Performed By: #### L 100.0100, L500.4100, L501.9985, L500.4050, L503.0105 #### [facility] [address] [place], [address] RBC (Bld) [#/Vol] 4.83 10*6/uL Normal 4.6-6.2 [facility] Comment on above: Order Comment: Order Date: 08/30/23 Order Info: 0184-1 - CBCD Performed By: #### L 100.0100, L500.4100, L501.9985, L500.4050, L503.0105 #### [facility] [address] [place], [address] RDW SD 41.2 fl Normal 35.1-43.9 [facility] Comment on above: Order Comment: Order Date: 08/30/23 Order Info: 0184-1 - CBCD Performed By: #### L 100.0100, L500.4100, L501.9985, L500.4050, L503.0105 #### [facility] [address] [place], [address] WBC (Bld) [#/Vol] 4.5 10*3/uL Normal 4.4-11.0 [facility] Comment on above: Order Comment: Order Date: 08/30/23 Order Info: 0184-1 - CBCD Performed By: #### L 100.0100, L500.4100, L501.9985, L500.4050, L503.0105 #### [facility] [address] [place], [address] Comprehensive Metabolic Prof [facility] 01-03-2024 Albumin [Mass/Vol] 3.7 g/dL Normal 3.2-5.0 [facility] Comment on above: Order Comment: Test( s) 005954-Wttgyhm B6 was developed and its performance characteristics determined by [employer]. It has not been cleared or approved by the Food and Drug Administration. Performed By: #### L 3300.8000, L3300.8200, L400.0001 #### [facility] [address] [place], [address] Albumin/Globulin [Mass ratio] 1.0 {ratio} Normal 0.9-2.4 [facility] Comment on above: Order Comment: Test( s) 735518-Aukesoi B6 was developed and its performance characteristics determined by [facility]. It has not been cleared or approved by the Food and Drug Administration. Performed By: #### L 3300.8000, L3300.8200, L400.0001 #### [facility] [address] [place], [address] ALK P 109 U/L Normal 45-117 [facility] Comment on above: Order Comment: Test( s) 246639-Zfovekw B6 was developed and its performance characteristics determined by [facility]. It has not been cleared or approved by the Food and Drug Administration. Performed By: #### L 3300.8000, L3300.8200, L400.0001 #### [facility] [address] [place], [address] ALT [Catalytic activity/Vol] 31 U/L Normal 16-61 [facility] Comment on above: Order Comment: Test( s) 726509-Hlgttjq B6 was developed and its performance characteristics determined by [facility]. It has not been cleared or approved by the Food and Drug Administration. Performed By: #### L 3300.8000, L3300.8200, L400.0001 #### [facility] [address] [place], [address] AST [Catalytic activity/Vol] 28 U/L Normal 15-37 [facility] Comment on above: Order Comment: Test( s) 927662-Ujkrbbq B6 was developed and its performance characteristics determined by [facility]. It has not been cleared or approved by the Food and Drug Administration. Performed By: #### L 3300.8000, L3300.8200, L400.0001 #### [facility] [address] [place], [address] Bilirubin [Mass/Vol] 1.70 mg/dL High 0.20-1.00 [facility] Comment on above: Order Comment: Test( s) 599191-Rubmhlp B6 was developed and its performance characteristics determined by [facility]. It has not been cleared or approved by the Food and Drug Administration. Result Comment: For patients on eltrombopag therapy, use of Dimension [place] TBIL is not recommended. Performed By: #### L 3300.8000, L3300.8200, L400.0001 #### [facility] [address] [place], [address] BUN/CRE 20.2 RATIO High 10-20 [facility] Comment on above: Order Comment: Test( s) 328300-Cmowyoy B6 was developed and its performance characteristics determined by [facility]. It has not been cleared or approved by the Food and Drug Administration. Performed By: #### L 3300.8000, L3300.8200, L400.0001 #### [facility] [address] [place], [address] CA,Total 9.3 mg/dL Normal 8.5-10.1 [facility] Comment on above: Order Comment: Test( s) 015206-Upffwov B6 was developed and its performance characteristics determined by [facility]. It has not been cleared or approved by the Food and Drug Administration. Performed By: #### L 3300.8000, L3300.8200, L400.0001 #### [facility] [address] [place], [address] Chloride [Moles/Vol] 102 mmol/L Normal 98-107 [facility] Comment on above: Order Comment: Test( s) 059689-Pwxrndd B6 was developed and its performance characteristics determined by [facility]. It has not been cleared or approved by the Food and Drug Administration. Performed By: #### L 3300.8000, L3300.8200, L400.0001 #### [facility] [address] [place], [address] CO2 [Moles/Vol] 27.0 mmol/L Normal 21.0-32.0 [facility] Comment on above: Order Comment: Test( s) 048857-Tdhnkel B6 was developed and its performance characteristics determined by [facility]. It has not been cleared or approved by the Food and Drug Administration. Performed By: #### L 3300.8000, L3300.8200, L400.0001 #### [facility] [address] [place], [address] Creatinine [Mass/Vol] 1.04 mg/dL Normal 0.70-1.30 [facility] Comment on above: Order Comment: Test( s) 458254-Lisrufu B6 was developed and its performance characteristics determined by [facility]. It has not been cleared or approved by the Food and Drug Administration. Result Comment: The validity of the calculated GFR GFRAA in patients over 70 years has not been determined. Clinical correlation is essential. Performed By: #### L 3300.8000, L3300.8200, L400.0001 #### [facility] [address] [place], [address] EST GFR - AA 90 mL/min Normal >60 [facility] Comment on above: Order Comment: Test( s) 592494-Hsmmqhg B6 was developed and its performance characteristics determined by [facility]. It has not been cleared or approved by the Food and Drug Administration. Result Comment: Afri can [place] GFR Calc Performed By: #### L 3300.8000, L3300.8200, L400.0001 #### [facility] [address] [place], [address] GAP 6 Normal 5-15 [facility] Comment on above: Order Comment: Test( s) 827243-Jklsjob B6 was developed and its performance characteristics determined by [facility]. It has not been cleared or approved by the Food and Drug Administration. Performed By: #### L 3300.8000, L3300.8200, L400.0001 #### [facility] [address] [place], [address] GFR/1.73 sq M.predicted among non-blacks MDRD (S/P/Bld) [Vol rate/Area] 75 mL/min/{1.73_m2} Normal >60 [facility] Comment on above: Order Comment: Test( s) 287803-Actynfg B6 was developed and its performance characteristics determined by [facility]. It has not been cleared or approved by the Food and Drug Administration. Result Comment: Non- GFR Calc Performed By: #### L 3300.8000, L3300.8200, L400.0001 #### [facility] [address] [place], [address] Globulin (S) [Mass/Vol] 3.6 g/dL Normal 2.2-4.2 [facility] Comment on above: Order Comment: Test( s) 001463-Jikpvkx B6 was developed and its performance characteristics determined by [facility]. It has not been cleared or approved by the Food and Drug Administration. Performed By: #### L 3300.8000, L3300.8200, L400.0001 #### [facility] [address] [place], [address] Glucose [Mass/Vol] 113 mg/dL High 74-106 [facility] Comment on above: Order Comment: Test( s) 641692-Mbyrgat B6 was developed and its performance characteristics determined by [facility]. It has not been cleared or approved by the Food and Drug Administration. Result Comment: Fast ing Glucose result from 100 to 125 mg/dL suggests IMPAIRED HOMEOSTASIS per A.D.A. criteria. Performed By: #### L 3300.8000, L3300.8200, L400.0001 #### [facility] [address] [place], [address] Potassium [Moles/Vol] 3.5 mmol/L Normal 3.5-5.1 [facility] Comment on above: Order Comment: Test( s) 091173-Ucxzhgf B6 was developed and its performance characteristics determined by [facility]. It has not been cleared or approved by the Food and Drug Administration. Performed By: #### L 3300.8000, L3300.8200, L400.0001 #### [facility] [address] [place], [address] Sodium [Moles/Vol] 136 mmol/L Normal 136-145 [facility] Comment on above: Order Comment: Test( s) 221207-Dymiusm B6 was developed and its performance characteristics determined by [facility]. It has not been cleared or approved by the Food and Drug Administration. Performed By: #### L 3300.8000, L3300.8200, L400.0001 #### [facility] [address] [place], [address] T PROT 7.3 g/dL Normal 6.4-8.2 [facility] Comment on above: Order Comment: Test( s) 987228-Ltqrixq B6 was developed and its performance characteristics determined by [facility]. It has not been cleared or approved by the Food and Drug Administration. Performed By: #### L 3300.8000, L3300.8200, L400.0001 #### [facility] [address] [place], [address] Urea nitrogen [Mass/Vol] 21 mg/dL High 7-18 [facility] Comment on above: Order Comment: Test( s) 905011-Mabikwc B6 was developed and its performance characteristics determined by [facility]. It has not been cleared or approved by the Food and Drug Administration. Performed By: #### L 3300.8000, L3300.8200, L400.0001 #### [facility] [address] [place], [address] Hemoglobin A1con 01-03-2024 HbA1c (Bld) [Mass fraction] 6.0 % High 3.8-5.6 [facility] Comment on above: Order Comment: Order Date: 08/30/23 Order Info: 4548-4 - A1C Result Comment: Norm al < 5.7 % Prediabetic 5.7 - 6.4 % Diabetic >or= 6.5 % Please note range changes. Performed By: #### L 100.0100, L500.4100, L501.9985, L500.4050, L503.0105 #### [facility] [address] [place], [address] Lipid Profileon 01-03-2024 Cholesterol [Mass/Vol] 116 mg/dL Normal 200 [facility] Comment on above: Order Comment: Test( s) 739055-Lgkdosp B6 was developed and its performance characteristics determined by [facility]. It has not been cleared or approved by the Food and Drug Administration. Result Comment: <200 mg/dL Desirable 200-240 mg/dL Borderline >240 mg/dL High Risk Performed By: #### L 3300.8000, L3300.8200, L400.0001 #### [facility] [address] [place], [address] Cholesterol in HDL [Mass/Vol] 49 mg/dL Normal [facility] Comment on above: Order Comment: Test( s) 948848-Homabvo B6 was developed and its performance characteristics determined by [facility]. It has not been cleared or approved by the Food and Drug Administration. Result Comment: The drugs N-Acetylcysteine and Metamizole may falsely depress this assay. Reference Range HDL <40 mg/dL Low HDL Cholesterol HDL >or= 60 mg/dL High HDL Cholesterol Performed By: #### L 3300.8000, L3300.8200, L400.0001 #### [facility] [address] [place], [address] Cholesterol in LDL [Mass/Vol] 51 mg/dL Normal 0-130 [facility] Comment on above: Order Comment: Test( s) 281119-Pbafqvr B6 was developed and its performance characteristics determined by [facility]. It has not been cleared or approved by the Food and Drug Administration. Performed By: #### L 3300.8000, L3300.8200, L400.0001 #### [facility] [address] [place], [address] Cholesterol in VLDL [Mass/Vol] 16 mg/dL Normal 5-40 [facility] Comment on above: Order Comment: Test( s) 779910-Foknrpy B6 was developed and its performance characteristics determined by [facility]. It has not been cleared or approved by the Food and Drug Administration. Performed By: #### L 3300.8000, L3300.8200, L400.0001 #### [facility] [address] [place], [address] Triglyceride [Mass/Vol] 80 mg/dL Normal [facility] Comment on above: Order Comment: Test( s) 587726-Azdeqog B6 was developed and its performance characteristics determined by [facility]. It has not been cleared or approved by the Food and Drug Administration. Result Comment: The drugs N-Acetylcysteine and Metamizole may falsely depress this assay. Serum Triglycerides Reference Interval Normal <150 mg/dL Borderline high 150 - 199 mg/dL High 200 - 499 mg/dL Very High > or = 500 mg/dL Performed By: #### L 3300.8000, L3300.8200, L400.0001 #### [facility] [address] [place], [address] Phosphoruson 01-03-2024 Phosphate [Mass/Vol] 2.5 mg/dL Normal 2.5-4.9 [facility] Comment on above: Order Comment: Test( s) 019948-Wtffvlo B6 was developed and its performance characteristics determined by [facility]. It has not been cleared or approved by the Food and Drug Administration. Performed By: #### L 3300.8000, L3300.8200, L400.0001 #### [facility] [address] [place], [address] Urinalysis, Completeon 01-02 BACTERIA 0 SEEN Normal None Seen [facility] Comment on above: Order Comment: Test( s) 065870-Cnfzrfa B6 was developed and its performance characteristics determined by [facility]. It has not been cleared or approved by the Food and Drug Administration. Performed By: #### L 3300.8000, L3300.8200, L400.0001 #### [facility] [address] [place], [address] EPI,SQUAMOUS 0 SEEN Normal 0-5 [facility] Comment on above: Order Comment: Test( s) 904124-Mmlgech B6 was developed and its performance characteristics determined by [facility]. It has not been cleared or approved by the Food and Drug Administration. Performed By: #### L 3300.8000, L3300.8200, L400.0001 #### [facility] [address] [place], [address] Mucus Ql (Urine sed) 0 SEEN Normal [facility] Comment on above: Order Comment: Test( s) 933197-Wzxwxyg B6 was developed and its performance characteristics determined by [facility]. It has not been cleared or approved by the Food and Drug Administration. Performed By: #### L 3300.8000, L3300.8200, L400.0001 #### [facility] [address] [place], [address] RBC 0 SEEN Normal 0-5 [facility] Comment on above: Order Comment: Test( s) 830041-Nphswkv B6 was developed and its performance characteristics determined by [facility]. It has not been cleared or approved by the Food and Drug Administration. Performed By: #### L 3300.8000, L3300.8200, L400.0001 #### [facility] [address] [place], [address] WBC 0 SEEN Normal 0-5 [facility] Comment on above: Order Comment: Test( s) 616116-Vxccpgj B6 was developed and its performance characteristics determined by [facility]. It has not been cleared or approved by the Food and Drug Administration. Performed By: #### L 3300.8000, L3300.8200, L400.0001 #### [facility] [address] [place], [address] Vitamin B12on 01-03-2024 Cobalamin (Vitamin B12) [Mass/Vol] 629 pg/mL Normal 211-911 [facility] Comment on above: Order Comment: Order Date: 08/30/23 Order Info: 2132-9 - B12 Performed By: #### L 100.0100, L500.4100, L501.9985, L500.4050, L503.0105 #### [facility] [address] [place], [place], [id number] PSA Total+%Freeon 10-06-2023 PSA, FREE 3.15 ng/mL Normal N/A [facility] Comment on above: Result Comment: Roch kevin ECLIA methodology. Performed By: #### L 3110.0500 #### [facility] [address] [place], [place], [id number] (301) PSA, FREE % 34.3 Normal . [facility] Comment on above: Result Comment: The table below lists the probability of prostate cancer for men with non-suspicious MARIA ELENA results and total PSA between 4 and 10 ng/mL, by patient age (Negrita et al, SANDY 1998, 279:1542). % Free PSA 50-64 yr 65-75 yr 0.00-10.00% 56% 55% 10.01-15.00% 24% 35% 15.01-20.00% 17% 23% 20.01-25.00% 10% 20% >25.00% 5% 9% Please note: Negrita et al did not make specific recommendations regarding the use of percent free PSA for any other population of men. Performed at: [address] [id number] Tripoler: Riley Calvillo PhD, Phone: [phone] Performed By: #### L 3110.0500 #### [facility] [address] [place], [place], [id number] PSA, TOTAL ULTR 9.180 ng/mL Abnormal 0.000-4.000 [facility] Comment on above: Result Comment: Roch kevin ECLIA methodology. According to the [employer] [employer], Serum PSA should decrease and remain at undetectable levels after radical prostatectomy. The AUA defines biochemical recurrence as an initial PSA value 0.200 ng/mL or greater followed by a subsequent confirmatory PSA value 0.200 ng/mL or greater. Values obtained with different assay methods or kits cannot be used interchangeably. Results cannot be interpreted as absolute evidence of the presence or absence of malignant disease. Performed By: #### L 3110.0500 #### [facility] [address] [place], [address] Carotid Duplex Ultrasoundon 09-27-2023 Carotid Duplex Ultrasound [facility] [address] [place] [address] Carotid Duplex Ultrasound 09/27/23 0953 MR#: [id number] Acct: [id number] Name: MANN GUAJARDO Rep #: [id number] : 1950 73 From: Blake Martinez MD Attending Dr: Dr. Saul Michelle MD Status: R EG CLI Ordering Dr: Saul Michelle MD Date: 09/27/23 Location: CV[facility] Sex: M C Admitted: Reason For Study: carotid stenosis Rt. Velocities/BP Lt. Velocities/BP Prox CCA 86.3/17.3 cm/sec. Prox CCA 96.1/15.1 cm/sec. Mid CCA 90.0/20.1 cm/sec. Mid CCA 102.3/18.8 cm/sec. Dist CCA 76.8/18.2 cm/sec. Dist CCA 87.6/21.2 cm/sec. Prox ICA 67.6/17.9 cm/sec. Prox ICA 82.8/11.3 cm/sec. Mid ICA 93.7/26.2 cm/sec. Mid ICA 62.0/19.2 cm/sec. Dist ICA 61.8/16.3 cm/sec. Dist ICA 51.8/15.8 cm/sec. Rt. ICA/CCA = 1.0. Lt. ICA/CCA = .8. Prox ECA 178.5/22.6 cm/sec. Prox ECA 128.4/18.8 cm/sec. Rt. Vert. 40.0/8.8 cm/sec. Lt. Vert. 26.4/4.6 cm/sec. Right Extracranial There is homogeneous, smooth atherosclerotic plaque noted in the right common carotid artery. There is heterogeneous, irregular atherosclerotic plaque noted in the right internal carotid artery. There is heterogeneous, irregular atherosclerotic plaque noted in the right external carotid artery. Antegrade flow is noted in the right vertebral artery. Left Extracranial There is homogeneous, smooth atherosclerotic plaque noted in the left common carotid artery. There is heterogeneous, irregular atherosclerotic plaque noted in the left internal carotid artery. There is heterogeneous, irregular atherosclerotic plaque noted in the left external carotid artery. Antegrade flow is noted in the left vertebral artery. Procedure Carotid Duplex 24935. This is a Carotid Duplex examination using B-mode, color flow and specral Doppler. The exam was diagnostic. Exam performed in department. VL/Carotid Duplex Ultrasound Interpretation Summary Mild (<50%) stenosis right extracranial internal carotid. Mild (<50%) stenosis left extracranial internal carotid. Patent and antegrade vertebrals bilaterally. Ordering Physician: Saul Michelle Referring Physician: Saul Michelle Performed By: Cesar Portillo, T 09/27/23 1518 Date Blake Martinez MD CC: Dr. Saul Michelle MD Date Dictated: 09/27/23 0953 Date Transcribed: 09/27/231517 Territory Sales Executive: Signed Normal [facility] Basophil percentageOrdered B y: Saul Michelle on 12-25-2022 Bilirubin [Mass/Vol] 1.40 mg/dL 0.20-1.00 [facility] Comment on above: For patients on eltr ombopag therapy, use of Dimension [place] TBIL is not recommended. Protein [Mass/Vol] 7.4 g/dL 6.4-8.2 [facility] Direct bilirubinOrdered By: Saul Michelle on 12-25-2022 Bilirubin.direct [Mass/Vol] 0.30 mg/dL 0.00-0.30 [facility] - Chemistry and C hemistry - challengeOrdered By: Saul Michelle on 10-23-2023 ALP [Catalytic activity/Vol] 103 U/L 45-117 [facility] ALT [Catalytic activity/Vol] 33 U/L 16-61 [facility] Globulin (S) [Mass/Vol] 3.8 g/dL 2.2-4.2 [facility] Serum or plasma albumin john urement (mass/volume)Ordered By: Saul Michelle on 12-25-2022 Albumin [Mass/Vol] 3.6 g/dL 3.2-5.0 [facility] Thin prep Papanicolaou smear with manual screeningOrdered By: Saul Michelle on 12-25-2022 Thin prep Papanicolaou smear with manual screening 20 U/L 15-37 [facility] Absolute lymphocyte countOrd ered By: Saul Michelle on 12-21-2022 Lymphocytes Auto (Unsp spec) [#/Vol] 0.99 10*3/uL 0.83-4.51 [facility] Basophil percentageOrdered B y: Saul Michelle on 12-21-2022 Basophil percentage 0 SEEN /hpf 0-5 [facility] Basophils/100 WBC (Bld) 0.7 % 0-1 [facility] Bilirubin [Mass/Vol] 1.50 mg/dL 0.20-1.00 [facility] Comment on above: For patients on eltr ombopag therapy, use of Dimension [place] TBIL is not recommended. Chloride [Moles/Vol] 103 mmol/L 98-107 [facility] Cholesterol [Mass/Vol] 110 mg/dL <200 [facility] Comment on above: <200 mg/dL Desirable 200-240 mg/dL Borderline >240 mg/dL High Risk Eosinophils/100 WBC (Bld) 1.1 % 0-5 [facility] Glucose [Mass/Vol] 109 mg/dL 74-106 [facility] Comment on above: Fasting Glucose resu lt from 100 to 125 mg/dL suggests IMPAIRED HOMEOSTASIS per A.D.A. criteria. Neutrophils (Bld) [#/Vol] 3.9 10*3/uL 2.0-7.7 [facility] Neutrophils/100 WBC (Bld) 71.7 % 47-70 [facility] Potassium [Moles/Vol] 3.7 mmol/L 3.5-5.1 [facility] Protein [Mass/Vol] 7.4 g/dL 6.4-8.2 [facility] Sodium [Moles/Vol] 139 mmol/L 136-145 [facility] Triglyceride [Mass/Vol] 82 mg/dL <199 [facility] Comment on above: The drugs N-Acetylcy steine and Metamizole may falsely depress this assay.Serum Triglycerides Reference Interval Normal <150 mg/dL Borderline high 150 - 199 mg/dL High 200 - 499 mg/dL Very High > or = 500 mg/dL WBC (Bld) [#/Vol] 5.4 10*3/uL 4.4-11.0 [facility] Bilirubin Test strip Ql (U)O rdered By: Saul Michelle on 12-21-2022 Bilirubin Ql (U) Negative Negative [facility] Blood erythrocytes count (nu mber/volume)Ordered By: Saul Michelle on 12-21-2022 RBC (Bld) [#/Vol] 4.64 10*6/uL 4.6-6.2 [facility] Blood hemoglobin measurement (mass/volume)Ordered By: Saul Michelle on 12-21-2022 Hemoglobin (Bld) [Mass/Vol] 14.5 g/dL 13.0-16.5 [facility] Blood lymphocytes/100 leukoc ytesOrdered By: Saul Michelle on 12-21-2022 Lymphocytes/100 WBC (Bld) 18.3 % 19-41 [facility] Blood monocytes/100 leukocyt esOrdered By: Saul Michelle on 12-21-2022 Monocytes/100 WBC (Bld) 8.0 % 0-10 [facility] Blood platelet mean volumeOr dered By: Saul Michelle on 12-21-2022 Platelet mean volume (Bld) [Entitic vol] 10.8 fL 6.2-12.0 [facility] Determination of erythrocyte mean corpuscular volume (MCV)Ordered By: Saul Michelle on 12-21-2022 MCV (RBC) [Entitic vol] 91.8 fL 80-94 [facility] Hematocrit Auto (Bld) [Volum e fraction]Ordered By: Saul Michelle on 12-21-2022 Hematocrit (Bld) [Volume fraction] 42.6 % 40-54 [facility] Ketones Test strip Ql (U)Ord ered By: Saul Michelle on 12-21-2022 Ketones Ql (U) Negative Negative [facility] - Chemistry and C hemistry - challengeOrdered By: Saul Michelle on 12-21-2022 ALP [Catalytic activity/Vol] 100 U/L 45-117 [facility] ALT [Catalytic activity/Vol] 32 U/L 16-61 [facility] CO2 [Moles/Vol] 31.0 mmol/L 21.0-32.0 [facility] Cobalamin (Vitamin B12) [Mass/Vol] 487 pg/mL 211-911 [facility] Free T4 [Mass/Vol] 0.92 ng/dL 0.76-1.46 [facility] Globulin (S) [Mass/Vol] 3.7 g/dL 2.2-4.2 [facility] Urea nitrogen/Creatinine [Mass ratio] 21.2 mg/mg 10-20 [facility] - Hematology and Cell countsOrdered By: Saul Michelle on 12-21-2022 Erythrocyte distribution width (RBC) [Entitic vol] 43.7 fL 35.1-43.9 [facility] Erythrocyte distribution width (RBC) [Ratio] 13.0 % 11.6-14.6 [facility] Immature granulocytes/100 WBC (Bld) 0.200 % 0.0-0.9 [facility] Comment on above: IG% - Immature Granu locytes (promyelocytes, myelocytes and metamyelocytes) > 1% indicates that a LEFT SHIFT is Present. MCH (RBC) [Entitic mass] 31.3 pg 27.0-32.0 [facility] Nucleated RBC/100 WBC (Bld) [Ratio] 0 % 0-5 [facility] MCHC Auto (RBC) [Mass/Vol]Or dered By: Saul Michelle on 12-21-2022 MCHC (RBC) [Mass/Vol] 34.0 g/dL 32-36 [facility] Mucus LM Ql (Urine sed)Order ed By: Saul Michelle on 12-21-2022 Mucus Ql (Urine sed) 0 SEEN /hpf [facility] Nitrite Test strip Ql (U)Ord ered By: Saul Michelle on 12-21-2022 Nitrite Ql (U) Negative Negative [facility] No Panel InformationOrdered By: Saul Michelle on 12-21-2022 Vitamin B6 Level 25.2 ug/L 3.4-65.2 [facility] Comment on above: Deficiency: <3.4 Mar ginal: 3.4 - 5.1 Adequate: >5.1 Whole Blood Vitamin B1 Level 157.5 nmol/L 66.5-200.0 [facility] Comment on above: Performed at: [employer] [facility] [address] [id number] Director: Georgie Cancino MD, Phone: [phone] Estimated GFR (MDRD) Amer 90 mL/min >60 [facility] Comment on above: GFR Calc Estimated GFR (MDRD) Non-Af Amer 75 mL/min >60 [facility] Comment on above: Non- GFR Calc Thyroid Stimulating Hormone (TSH) 1.66 uIU/mL 0.358-3.74 [facility] Platelets bldOrdered By: Peter Michelle on 12-21-2022 Platelets (Bld) [#/Vol] 203 10*3/uL 150-450 [facility] Protein Test strip Ql (U)Ord ered By: Saul Michelle on 12-21-2022 Protein Ql (U) Negative Negative [facility] Serum or plasma albumin john urement (mass/volume)Ordered By: Saul Michelle on 12-21-2022 Albumin [Mass/Vol] 3.7 g/dL 3.2-5.0 [facility] Serum or plasma albumin/glob ulin mass ratioOrdered By: Saul Michelle on 12-21-2022 Albumin/Globulin [Mass ratio] 1.0 {ratio} 0.9-2.4 [facility] Serum or plasma calcium john urement (mass/volume)Ordered By: Saul Michelle on 12-21-2022 Calcium [Mass/Vol] 9.4 mg/dL 8.5-10.1 [facility] Serum or plasma cholesterol in HDL measurement (mass/volume)Ordered By: Saul Michelle on 12-21-2022 Cholesterol in HDL [Mass/Vol] 48 mg/dL >40 [facility] Comment on above: The drugs N-Acetylcy steine and Metamizole may falsely depress this assay. Reference Range HDL <40 mg/dL Low HDL Cholesterol HDL >or= 60 mg/dL High HDL Cholesterol Serum or plasma cholesterol in VLDL measurement (mass/volume)Ordered By: Saul Michelle on 12-21-2022 Cholesterol in VLDL [Mass/Vol] 16 mg/dL 5-40 [facility] Serum or plasma creatinine m easurement (mass/volume)Ordered By: Saul Michelle on 12-21-2022 Creatinine [Mass/Vol] 1.04 mg/dL 0.70-1.30 [facility] Comment on above: The validity of the calculated GFR & GFRAA in patients over 70 years has not been determined. Clinical correlation is essential. Serum or plasma low density lipoprotein (LDL) cholesterol measurement (mass/volume)Ordered By: Saul Michelle on 12-21-2022 Cholesterol in LDL [Mass/Vol] 46 mg/dL 0-130 [facility] Serum or plasma urea nitroge n measurement (mass/volume)Ordered By: Saul Michelle on 12-21-2022 Urea nitrogen [Mass/Vol] 22 mg/dL 7-18 [facility] Squamous epithelial cells de tection in urine sediment by light microscopyOrdered By: Saul Michelle on 12-21-2022 Epithelial cells.squamous LM Ql (Urine sed) 0-5 SEEN /hpf 0-5 [facility] Thin prep Papanicolaou smear with manual screeningOrdered By: Saul Michelle on 12-21-2022 Thin prep Papanicolaou smear with manual screening 24 U/L 15-37 [facility] Thin prep Papanicolaou smear with manual screening 5 5-15 [facility] Urine blood detectionOrdered By: Saul Michelle on 12-21-2022 RBC Ql (U) Negative Negative [facility] RBC Ql (U) 0-5 SEEN /hpf 0-5 [facility] Urine clarityOrdered By: Peter Michelle on 12-21-2022 Clarity (U) Sl. Cloudy Clear [facility] Urine color determinationOrd ered By: Saul Michelle on 12-21-2022 Color (U) Yellow Yellow [facility] Urine glucose detectionOrder ed By: Saul Michelle on 12-21-2022 Glucose Ql (U) Normal mg/dl Normal [facility] Urine leukocyte esterase det ection by dipstickOrdered By: Saul Michelle on 12-21-2022 Leukocyte esterase Test strip Ql (U) Negative Negative [facility] Urine pHOrdered By: Saul phillips on 12-21-2022 pH (U) 8.0 [pH] 5.0 - 8.0 [facility] Urine sediment bacteria coun t by microscopy (number/high power field)Ordered By: Saul Michelle on 12-21-2022 Bacteria LM.HPF (Urine sed) [#/Area] 0 /[HPF] None Seen [facility] Urine specific gravity measu rementOrdered By: Saul Michelle on 12-21-2022 Specific gravity (U) [Rel density] 1.015 1.002-1.030 [facility] Urobilinogen Auto test strip Ql (U)Ordered By: Saul Michelle on 12-21-2022 Urobilinogen Ql (U) Normal mg/dl Normal [facility] Whole blood hemoglobin A1c/t otal hemoglobin ratio (mass fraction)Ordered By: Saul Michelle on 12-21-2022 HbA1c (Bld) [Mass fraction] 5.7 % 3.8-5.6 [facility] Comment on above: Normal < 5.7 % Predi abetic 5.7 - 6.4 % Diabetic >or= 6.5 % Please note range changes. Absolute lymphocyte countOrd ered By: Dr. Michelle on 07-06-2022 Lymphocytes Auto (Unsp spec) [#/Vol] 1.18 10*3/uL 0.83-4.51 [facility] Basophil percentageOrdered B y: Dr. Michelle on 07-06-2022 Basophils/100 WBC (Bld) 0.6 % 0-1 [facility] Bilirubin [Mass/Vol] 1.20 mg/dL 0.20-1.00 [facility] Comment on above: For patients on eltr ombopag therapy, use of Dimension [place] TBIL is not recommended. Chloride [Moles/Vol] 102 mmol/L 98-107 [facility] Cholesterol [Mass/Vol] 125 mg/dL <200 [facility] Comment on above: <200 mg/dL Desirable 200-240 mg/dL Borderline >240 mg/dL High Risk Eosinophils/100 WBC (Bld) 1.0 % 0-5 [facility] Glucose [Mass/Vol] 106 mg/dL 74-106 [facility] Comment on above: Fasting Glucose resu lt from 100 to 125 mg/dL suggests IMPAIRED HOMEOSTASIS per A.D.A. criteria. Neutrophils (Bld) [#/Vol] 3.6 10*3/uL 2.0-7.7 [facility] Neutrophils/100 WBC (Bld) 68.5 % 47-70 [facility] Potassium [Moles/Vol] 3.6 mmol/L 3.5-5.1 [facility] Protein [Mass/Vol] 7.6 g/dL 6.4-8.2 [facility] Sodium [Moles/Vol] 138 mmol/L 136-145 [facility] Triglyceride [Mass/Vol] 147 mg/dL <199 [facility] Comment on above: The drugs N-Acetylcy steine and Metamizole may falsely depress this assay.Serum Triglycerides Reference Interval Normal <150 mg/dL Borderline high 150 - 199 mg/dL High 200 - 499 mg/dL Very High > or = 500 mg/dL WBC (Bld) [#/Vol] 5.2 10*3/uL 4.4-11.0 [facility] Blood erythrocytes count (nu mber/volume)Ordered By: Dr. Michelle on 07-06-2022 RBC (Bld) [#/Vol] 4.92 10*6/uL 4.6-6.2 [facility] Blood hemoglobin measurement (mass/volume)Ordered By: Dr. Michelle on 07-06-2022 Hemoglobin (Bld) [Mass/Vol] 15.0 g/dL 13.0-16.5 [facility] Blood lymphocytes/100 leukoc ytesOrdered By: Dr. Michelle on 07-06-2022 Lymphocytes/100 WBC (Bld) 22.6 % 19-41 [facility] Blood monocytes/100 leukocyt esOrdered By: Dr. Michelle on 07-06-2022 Monocytes/100 WBC (Bld) 7.1 % 0-10 [facility] Blood platelet mean volumeOr dered By: Dr. Michelle on 07-06-2022 Platelet mean volume (Bld) [Entitic vol] 11.7 fL 6.2-12.0 [facility] Determination of erythrocyte mean corpuscular volume (MCV)Ordered By: Dr. Michelle on 07-06-2022 MCV (RBC) [Entitic vol] 91.9 fL 80-94 [facility] Hematocrit Auto (Bld) [Volum e fraction]Ordered By: Dr. Michelle on 07-06-2022 Hematocrit (Bld) [Volume fraction] 45.2 % 40-54 [facility] - Chemistry and C hemistry - challengeOrdered By: Dr. Michelle on 07-06-2022 ALP [Catalytic activity/Vol] 107 U/L 45-117 [facility] ALT [Catalytic activity/Vol] 41 U/L 16-61 [facility] CO2 [Moles/Vol] 28.0 mmol/L 21.0-32.0 [facility] Cobalamin (Vitamin B12) [Mass/Vol] 486 pg/mL 211-911 [facility] Free T4 [Mass/Vol] 0.98 ng/dL 0.76-1.46 [facility] Globulin (S) [Mass/Vol] 3.9 g/dL 2.2-4.2 [facility] Urea nitrogen/Creatinine [Mass ratio] 19.9 mg/mg 10-20 [facility] - Hematology and Cell countsOrdered By: Dr. Michelle on 07-06-2022 Erythrocyte distribution width (RBC) [Entitic vol] 43.1 fL 35.1-43.9 [facility] Erythrocyte distribution width (RBC) [Ratio] 12.7 % 11.6-14.6 [facility] Immature granulocytes/100 WBC (Bld) 0.200 % 0.0-0.9 [facility] Comment on above: IG% - Immature Granu locytes (promyelocytes, myelocytes and metamyelocytes) > 1% indicates that a LEFT SHIFT is Present. MCH (RBC) [Entitic mass] 30.5 pg 27.0-32.0 [facility] Nucleated RBC/100 WBC (Bld) [Ratio] 0 % 0-5 [facility] Auto (RBC) [Mass/Vol]Or dered By: Dr. Michelle on 07-06-2022 MCHC (RBC) [Mass/Vol] 33.2 g/dL 32-36 [facility] No Panel InformationOrdered By: Dr. Michelle on 07-06-2022 Estimated GFR (MDRD) Amer 100 mL/min >60 [facility] Comment on above: GFR Calc Estimated GFR (MDRD) Non-Af Amer 82 mL/min >60 [facility] Comment on above: Non- GFR Calc Thyroglobulin Antibody < 1.0 IU/mL 0.0-0.9 [facility] Comment on above: Thyroglobulin Antibo dy measured by Yasmany CoulterMethodology Thyroglobulin Level 8.0 ng/mL 1.4-29.2 [facility] Comment on above: According to the [facility] [employer],the reference interval for Thyroglobulin (TG) should berelated to euthyroid patients and not for patients whounderwent thyroidectomy. TG reference intervals for thesepatients depend on the residual mass of the thyroid tissueleft after surgery. Establishing a post-operative baselineis recommended. The assay limit of quantitation is 0.1ng/mLThyroglobulin measured by Yasmany Dylan [employer] Thyroid Stimulating Hormone (TSH) 1.84 uIU/mL 0.358-3.74 [facility] Vitamin B6 Level 19.6 ug/L 3.4-65.2 [facility] Comment on above: Deficiency: <3.4 Mar ginal: 3.4 - 5.1 Adequate: >5.1 Whole Blood Vitamin B1 Level 169.9 nmol/L 66.5-200.0 [facility] Platelets bldOrdered By: Dr. Michelle on 07-06-2022 Platelets (Bld) [#/Vol] 236 10*3/uL 150-450 [facility] Serum or plasma albumin john urement (mass/volume)Ordered By: Dr. Michelle on 07-06-2022 Albumin [Mass/Vol] 3.7 g/dL 3.2-5.0 [facility] Serum or plasma albumin/glob ulin mass ratioOrdered By: Dr. Michelle on 07-06-2022 Albumin/Globulin [Mass ratio] 0.9 {ratio} 0.9-2.4 [facility] Serum or plasma calcium john urement (mass/volume)Ordered By: Dr. Michelle on 07-06-2022 Calcium [Mass/Vol] 9.4 mg/dL 8.5-10.1 [facility] Serum or plasma cholesterol in HDL measurement (mass/volume)Ordered By: Dr. Michelle on 07-06-2022 Cholesterol in HDL [Mass/Vol] 44 mg/dL >40 [facility] Comment on above: The drugs N-Acetylcy steine and Metamizole may falsely depress this assay. Reference Range HDL <40 mg/dL Low HDL Cholesterol HDL >or= 60 mg/dL High HDL Cholesterol Serum or plasma cholesterol in VLDL measurement (mass/volume)Ordered By: Dr. Michelle on 07-06-2022 Cholesterol in VLDL [Mass/Vol] 29 mg/dL 5-40 [facility] Serum or plasma creatinine m easurement (mass/volume)Ordered By: Dr. Michelle on 07-06-2022 Creatinine [Mass/Vol] 0.96 mg/dL 0.70-1.30 [facility] Comment on above: The validity of the calculated GFR & GFRAA in patients over 70 years has not been determined. Clinical correlation is essential. Serum or plasma low density lipoprotein (LDL) cholesterol measurement (mass/volume)Ordered By: Dr. Michelle on 07-06-2022 Cholesterol in LDL [Mass/Vol] 52 mg/dL 0-130 [facility] Serum or plasma thyroperoxid ase antibody assay (units/volume)Ordered By: Dr. Michelle on 07-06-2022 TPO Ab Qn [IU]/mL 0-34 [facility] Comment on above: Performed at: [facility] [address] [id number] Director: Georgie Cancino MD, Phone: [phone] at: - [facility] [address] [id number] Director: Riley Calvillo PhD, Phone: [phone] Serum or plasma urea nitroge n measurement (mass/volume)Ordered By: Dr. Michelle on 07-06-2022 Urea nitrogen [Mass/Vol] 19 mg/dL 7-18 [facility] Thin prep Papanicolaou smear with manual screeningOrdered By: Dr. Michelle on 07-06-2022 Thin prep Papanicolaou smear with manual screening 30 U/L 15-37 [facility] Thin prep Papanicolaou smear with manual screening 8 5-15 [facility] CNPNon 12-30-2021 ALBERN Telephone (CorniceS) MANN GUAJARDO ([id number]) 1950 M Date Time Provider Department 12/30/21 AAYUSH WILLS During your visit today, we recorded the following information about you: Supriya Ivey LPN 12/30/2021 1:18 PM Signed Patients significant other phoned office. Patient was seen 12-21-[address] Wills. Patient was prescribed Valsartan Hydrochlorothiazide 160-25 mg tablet take 1 tablet daily, at this appointment. Patient was already taking Hydrochlorothiazide 25 mg 1 tablet by mouth daily, that was not added to active medication list during visit. (This nurse added to medication list during this current encounter.) Significant other is questioning what patient is to take. If to take just the Valsartan Hydrochlorothiazide or Hydrochlorothiazide, or both. Copied from Dr. Wills's chart note for visit: Discontinue lisinopril begin valsartan. Include hydrochlorothiazide dose and valsartan. Patient is taking Valsartan Hydrochlorothiazide and not additional Hydrochlorothiazide until confirmation Supriya Ivey LPN December 30, 2021 1:14 PM Fran Dennis APRN.[facility] 01/02/2022 8:46 AM Signed Please instruct patient to stop taking the Hydrochlorothiazide 25mg tablet. He is to take the valsartan-HCTZ combo pill as prescribed by Dr. Wills. Patient to monitor BP closely and is to notify office if BP is consistently above 140/90. Go to ER if BP is greater than 180/110. Please remove the hydrochlorothiazide 25mg from his active medication list. Thanks! Supriya Ivey LPN 01/02/2022 9:18 AM Signed Message left for patient to phone office at earliest convenience in regards to medication Supriya Ivey LPN January 02, 2022 9:18 AM Supriya Ivey LPN 01/02/2022 9:29 AM Signed Patient's significant other returned phone call. Information given and verbalized understanding. Supriya Ivey LPN January 02, 2022 9:29 AM Allergies As of Date: 12/30/2021 (No Known Allergies) Date Reviewed: 12/21/2021 Reviewed by: Juana Severino LPN - Fully Assessed Reason for Visit: Patient Question [1037] Prescriptions as of 01/02/2022 - atorvastatin (LIPITOR) 40 mg tablet - [id number]-[id number]-vit K-lycop (MEN'S ONE DAILY) 400-20-300 mcg tab Take by mouth. - Valsartan-hydroCHLOROt hiazide (DIOVAN HCT) 160-25 mg per tablet Take 1 tablet by mouth once daily. Problem List As Of Date 12/30/2021 Noted Resolved Hyperlipidemia [E78.5] 10/17/2016 Benign essential HTN [I10] 10/17/2016 CVA (cerebrovascular accident) (HCC) [I63.9] 10/17/2016 Medications Discontinued During This Encounter Prescriptions - hydroCHLOROthiazide (HYDRODIURIL, ESIDRIX) 25 mg tablet (Discontinued) Take 1 tablet by mouth once daily. Encounter Status:Closed by SUPRIYA IVEY on 01/02/22 Normal [facility] Comprehensive metabolic 2000 panelon 12-29-2021 Albumin [Mass/Vol] 4.2 g/dL Normal 3.9-4.9 [facility] Comment on above: Order Comment: Speci men Type: BLOOD SPECIMEN Ordering Facility: [facility] Address: [address] [place] [address] Performed By: #### 2 4323-8 #### [facility] [id number] [address] [place] [address] [place] ALP [Catalytic activity/Vol] 110 U/L Normal 38-113 [facility] Comment on above: Order Comment: Speci men Type: BLOOD SPECIMEN Ordering Facility: [facility] Address: [address] [place] [address] Performed By: #### 2 4323-8 #### [facility] CLIA [id number] [address] [place] [address] [place] ALT [Catalytic activity/Vol] 26 U/L Normal 10-54 [facility] Comment on above: Order Comment: Speci men Type: BLOOD SPECIMEN Ordering Facility: [facility] Address: [address] [place] [address] Performed By: #### 2 4323-8 #### [facility] CLIA [id number] [address] [place] [address] [place] Anion gap [Moles/Vol] 9 mmol/L Normal 9-18 [facility] Comment on above: Order Comment: Speci men Type: BLOOD SPECIMEN Ordering Facility: [facility] Address: [address] [place] [address] Performed By: #### 2 4323-8 #### [facility] CLIA [id number] [address] [place] [address] [place] AST [Catalytic activity/Vol] 27 U/L Normal 14-40 [facility] Comment on above: Order Comment: Speci men Type: BLOOD SPECIMEN Ordering Facility: [facility] Address: [address] [place] [place] [address] Performed By: #### 2 4323-8 #### [facility] CLIA [id number] [address] [place] [address] [place] Bilirubin [Mass/Vol] 1.0 mg/dL Normal 0.2-1.3 [facility] Comment on above: Order Comment: Speci men Type: BLOOD SPECIMEN Ordering Facility: [facility] Address: [address] [facility] Performed By: #### 2 4323-8 #### [facility] CLIA [id number] [address] [place] [address] [place] Calcium [Mass/Vol] 8.9 mg/dL Normal 8.5-10.2 [facility] Comment on above: Order Comment: Speci men Type: BLOOD SPECIMEN Ordering Facility: [facility] Address: [address] Performed By: #### 2 4323-8 #### [facility] CLIA [id number] [address] [place] [address] [place] Chloride [Moles/Vol] 99 mmol/L Normal 97-105 [facility] Comment on above: Order Comment: Speci men Type: BLOOD SPECIMEN Ordering Facility: [facility] Address: [address] [place], [place] [address] Performed By: #### 2 4323-8 #### [facility] CLIA [id number] [address] [place] [address] [place] CO2 [Moles/Vol] 29 mmol/L Normal 22-30 [facility] Comment on above: Order Comment: Speci men Type: BLOOD SPECIMEN Ordering Facility: [facility] Address: [address] Performed By: #### 2 4323-8 #### [facility] CLIA [id number] [address] [place] [address] [place] Creatinine [Mass/Vol] 1.00 mg/dL Normal 0.73-1.22 [facility] Comment on above: Order Comment: Speci men Type: BLOOD SPECIMEN Ordering Facility: [facility] Address: [address] Performed By: #### 2 4323-8 #### [facility] CLIA [id number] [address] [place] [address] [place] ESTIMATED GLOMERULAR FILTRATION RATE 81 mL/min/1.73m??? Normal >=60 [facility] Comment on above: Order Comment: Dino bearden Type: BLOOD SPECIMEN Ordering Facility: [facility] Address: [address] [place] [address] Result Comment: Maki mated Glomerular Filtration Rate (eGFR) is calculated using the 2020 CKD-EPI creatinine equation. This equation utilizes serum creatinine, sex, and age as parameters. The creatinine assay has traceable calibration to isotope dilution-mass spectrometry. Refer to KDIGO guidelines for clinical interpretation. In patients with unstable renal function, e.g. those with acute kidney injury, the eGFR may not accurately reflect actual GFR. Performed By: #### 2 4323-8 #### [facility] [id number] [address] [place] [address] [place] Glucose [Mass/Vol] 114 mg/dL High 74-99 [facility] Comment on above: Order Comment: Dino bearden Type: BLOOD SPECIMEN Ordering Facility: [facility] Address: [address] [place] [address] Result Comment: The [place] Diabetes Association (ADA) provides guidance for cutoff values for fasting glucose and random glucose. The ADA defines fasting as no caloric intake for at least 8 hours. Fasting plasma glucose results between 100 to 125 mg/dL indicate increased risk for diabetes (prediabetes). Fasting plasma glucose results greater than or equal to 126 mg/dL meet the criteria for diagnosis of diabetes. In the absence of unequivocal hyperglycemia, results should be confirmed by repeat testing. In a patient with classic symptoms of hyperglycemia or hyperglycemic crisis, random plasma glucose results greater than or equal to 200 mg/dL meet the criteria for diagnosis of diabetes. Reference: Standards of Medical Care in Diabetes 2016, [place] Diabetes Association. Diabetes Care. 2016.39(Suppl 1). Performed By: #### 2 4323-8 #### [facility] [id number] [address] [place] [address] [place] Potassium [Moles/Vol] 3.5 mmol/L Low 3.7-5.1 [facility] Comment on above: Order Comment: Speci men Type: BLOOD SPECIMEN Ordering Facility: [facility] Address: [address] Performed By: #### 2 4323-8 #### [facility] CLIA [id number] [address] [place] [address] [place] Protein [Mass/Vol] 6.6 g/dL Normal 6.3-8.0 [facility] Comment on above: Order Comment: Speci men Type: BLOOD SPECIMEN Ordering Facility: [facility] Address: [address] [place], [place] [address] Performed By: #### 2 4323-8 #### [facility] [id number] [address] [place] [address] [place] Sodium [Moles/Vol] 137 mmol/L Normal 136-144 [facility] Comment on above: Order Comment: Speci men Type: BLOOD SPECIMEN Ordering Facility: [facility] Address: [address] [place] [address] Performed By: #### 2 4323-8 #### [facility] [id number] [address] [place] [address] [place] Urea nitrogen [Mass/Vol] 18 mg/dL Normal 9-24 [facility] Comment on above: Order Comment: Speci men Type: BLOOD SPECIMEN Ordering Facility: [facility] Address: [address] [place], [place] [address] Performed By: #### 2 4323-8 #### [facility] [id number] [address] [place] [address] [place] Lipid 1996 panelon 2 Cholesterol [Mass/Vol] 126 mg/dL Normal <200 [facility] Comment on above: Order Comment: Speci men Type: BLOOD SPECIMEN Ordering Facility: [facility] Address: [address] [place] [id number] Result Comment: <200 mg/dL, Desirable 200-239 mg/dL, Borderline high >239 mg/dL, High Performed By: #### 2 4331-1 #### [facility] CLIA [id number] [address] [id number] [facility] CLIA [id number] [address] [place] [address] [place] Cholesterol in HDL [Mass/Vol] 42 mg/dL Normal >39 [facility] Comment on above: Order Comment: Speci men Type: BLOOD SPECIMEN Ordering Facility: [facility] Address: [facility] [place] [place] [id number] Result Comment: 40-5 9 mg/dL, Acceptable >59 mg/dL, High: Negative risk factor for coronary heart disease <40 mg/dL, Low: Positive risk factor for coronary heart disease Performed By: #### 2 4331-1 #### [facility] CLIA [id number] [address] CLIA [id number] [address] [place] [address] Cholesterol in LDL [Mass/Vol] 65 mg/dL Normal <100 [facility] Comment on above: Order Comment: Speci men Type: BLOOD SPECIMEN Ordering Facility: [facility] Address: [address] [place] [id number] Result Comment: <100 mg/dL, Optimal 100-129 mg/dL, Near optimal/above optimal 130-159 mg/dL, Borderline high 160-189 mg/dL, High >189 mg/dL, Very high Secondary prevention optimal LDL Cholesterol levels are recommended to be < 70 mg/dL Performed By: #### 2 4331-1 #### [facility] CLIA [id number] [address] [place] [id number] [facility] CLIA [id number] [address] Cholesterol in LDL/Cholesterol in HDL [Mass ratio] 1.55 {ratio} Normal <2.54 [facility] Comment on above: Order Comment: Dino bearden Type: BLOOD SPECIMEN Ordering Facility: [facility] Address: [address] [place] [address] Result Comment: Rosi bean: 1. National Cholesterol Education Program ATP III Guideline At-A-Glance Quick Desk Reference: National Heart, Lung, and Blood Waucoma. National Institutes of Health. 2001: NIH Publication No. 01-3305. 2. An International Atherosclerosis Society position paper: global recommendations for the management of dyslipidemia: executive summary, Atherosclerosis. 2014: 232(2):410-413. Performed By: #### 2 4331-1 #### [facility] CLIA [id number] [address] [place] [address] [facility] CLIA [id number] [address] [place] [address] Cholesterol in VLDL [Mass/Vol] 19 mg/dL Normal <30 [facility] Comment on above: Order Comment: Dino bearden Type: BLOOD SPECIMEN Ordering Facility: [facility] Address: [address] [place] [address] Performed By: #### 2 4331-1 #### [facility] CLIA [id number] [address] [place] [address] [facility] CLIA [id number] [address] [place] [address] [place] Cholesterol non HDL [Mass/Vol] 84 mg/dL Normal <130 [facility] Comment on above: Order Comment: Dino bearden Type: BLOOD SPECIMEN Ordering Facility: [facility] Address: [address] [place], [place] [id number] Result Comment: <130 mg/dL, Optimal 130-159 mg/dL, Near optimal/above optimal 160-189 mg/dL, Borderline high 190-219 mg/dL, High >219 mg/dL, Very high Secondary prevention optimal non HDL Cholesterol levels are recommended to be <100 mg/dL Performed By: #### 2 4331-1 #### [facility] CLIA [id number] [address] [place] [address] STATES OF [facility] CLIA [id number] [address] [place] [address] [facility] Cholesterol.total/Suzanne sterol in HDL [Mass ratio] 3.00 {ratio} Normal <5.10 [facility] Comment on above: Order Comment: Speci men Type: BLOOD SPECIMEN Ordering Facility: [facility] Address: [address] [place] [address] Performed By: #### 2 4331-1 #### [facility] CLIA [id number] [address] [place] [address] [facility] CLIA [id number] [address] [place] [address] FASTING TIME 12 hrs Normal [facility] Comment on above: Order Comment: Speci men Type: BLOOD SPECIMEN Ordering Facility: [facility] Address: [address] [place] [address] Performed By: #### 2 4331-1 #### [facility] CLIA [id number] [address] [place] [address] [facility] CLIA [id number] [address] [place] [address] [facility] Triglyceride [Mass/Vol] 93 mg/dL Normal <150 [facility] Comment on above: Order Comment: Speci men Type: BLOOD SPECIMEN Ordering Facility: [facility] Address: [address] [place] [address] Result Comment: <150 mg/dL, Normal 150-199 mg/dL, Borderline high 200-499 mg/dL, High >499 mg/dL, Very high Performed By: #### 2 4331-1 #### [facility] CLIA [id number] [address] [facility] [address] [address] [place] [address] [facility] CLIA [id number] [address] [place] [address] [place] CNOVon 12-21-2021 CNOV Office Visit (FAMMAS ) MANN GUAJARDO ([id number]) 1950 M Date Time Provider Department 12/21/21 9:50 AM AAYUSH WILLS During your visit today, we recorded the following information about you: Temperature Pulse Respiration Blood pressure 98.4 degrees 82/minute 14/minute 140/80 Weight Height 80.1 kg 1.702 m Aayush Wills MD 12/21/2021 11:00 AM Signed This note was created using Peerformriter. Subjective Mann Guajardo is a 71 year old male. Patient presents today for follow-up for multiple medical problems. See list. His chronic medical problems are stable. Blood pressures been under good control on his current regimen. Cholesterols been well controlled with Lipitor. He does complain today of cough associated with his lisinopril. Review of Systems Constitutional: Negative. HENT: Negative. Eyes: Negative. Respiratory: Negative. Cardiovascular: Negative. Gastrointestinal: Negative. Endocrine: Negative. Genitourinary: Negative. Musculoskeletal: Negative. Skin: Negative. Allergic/Immunologic: Negative. Neurological: Negative. Hematological: Negative. Psychiatric/Behavioral : Negative. Objective BP 140/80 (BP Site: Right Arm, BP Cuff Size: Large Adult) Pulse 82 Temp 36.9 ?C (98.4 ?F) (Temporal) Resp 14 Ht 170.2 cm (5' 7) Wt 80.1 kg (176 lb 9.6 oz) SpO2 98% BMI 27.66 kg/m? Physical Exam Vitals reviewed. Constitutional: Appearance: Normal appearance. HENT: Head: Normocephalic and atraumatic. Nose: Nose normal. Eyes: Extraocular Movements: Extraocular movements intact. Pupils: Pupils are equal, round, and reactive to light. Cardiovascular: Rate and Rhythm: Normal rate and regular rhythm. Pulmonary: Effort: Pulmonary effort is normal. Breath sounds: Normal breath sounds. Abdominal: General: Bowel sounds are normal. Palpations: Abdomen is soft. Musculoskeletal: General: Normal range of motion. Cervical back: Normal range of motion and neck supple. Skin: General: Skin is warm and dry. Capillary Refill: Capillary refill takes less than 2 seconds. Neurological: General: No focal deficit present. Mental Status: He is alert and oriented to person, place, and time. Mental status is at baseline. Psychiatric: Mood and Affect: Mood normal. Behavior: Behavior normal. Assessment and Plan Mann was seen today for 6 month exam. Diagnoses and all orders for this visit: Benign essential HTN - COMP METABOLIC PANEL; Future Mixed hyperlipidemia - COMP METABOLIC PANEL; Future - LIPID PANEL BASIC; Future Other orders - Valsartan-hydroCHLOROt hiazide (DIOVAN HCT) 160-25 mg per tablet; Take 1 tablet by mouth once daily. Discontinue lisinopril begin valsartan. Include hydrochlorothiazide dose and valsartan. Monitor blood pressure regularly. Follow-up if blood pressure increases. Labs as above. Allergies As of Date: 12/21/2021 (No Known Allergies) Date Reviewed: 12/21/2021 Reviewed by: Juana Severino LPN - Fully Assessed Reason for Visit: 6 Month Exam [189] Cmt: 6 month f/u for HTN pt has complaints of cough x 5 years Primary Visit Diagnosis:Benign essential HTN [I10] Other Visit Diagnosis:Mixed hyperlipidemia [E78.2] Order(s):COMP METABOLIC PANEL [SQCMP] Order #: [id number] FUTURE LIPID PANEL BASIC [SQLIPB] Order #: [id number] FUTURE Valsartan-hydroCHLOROt hiazide (DIOVAN HCT) 160-25 mg per tabletTake 1 tablet by mouth once daily.Disp: 90 tabletRfl: 3 Prescriptions as of 12/21/2021 - atorvastatin (LIPITOR) 40 mg tablet - xkkdzqrs-ggs-tkxbs-vit K-lycop (MEN'S ONE DAILY) 400-20-300 mcg tab Take by mouth. - Valsartan-hydroCHLOROt hiazide (DIOVAN HCT) 160-25 mg per tablet Take 1 tablet by mouth once daily. Problem List As Of Date 12/21/2021 Noted Resolved Hyperlipidemia [E78.5] 10/17/2016 Benign essential HTN [I10] 10/17/2016 CVA (cerebrovascular accident) (HCC) [I63.9] 10/17/2016 Prescriptions ordered this encounter Disp Refills Start End VALSARTAN 160 MG-HYDROCHLOROTHIAZIDE * 90 t* 3 12/21/2021 12/21/2022 Route: ORAL Sig: Take 1 tablet by mouth once daily. Medications Discontinued During This Encounter Prescriptions - lisinopril (ZESTRIL, PRINIVIL) 20 mg tablet (Discontinued) - hydroCHLOROthiazide (HYDRODIURIL, ESIDRIX) 25 mg tablet (Discontinued) Level of Service: OFFICE/OUTPATIENT ESTABLISHED LOW MDM 20-29 MIN [59753] Encounter Status:Closed by AAYUSH WILLS on 12/21/21 [facility] Absolute lymphocyte counton 06-30-2021 Lymphocytes Auto (Unsp spec) [#/Vol] 1.40 10*3/uL 0.83-4.51 [facility] Work Phone: Basophil percentageon 2021 Basophils/100 WBC (Bld) 0.5 % 0-1 [facility] Work Phone: Bilirubin [Mass/Vol] 1.20 mg/dL 0.20-1.00 [facility] Work Phone: Comment on above: For patients on eltr ombopag therapy, use of Dimension [place] TBIL is not recommended. Chloride [Moles/Vol] 107 mmol/L 98-107 [facility] Work Phone: Cholesterol [Mass/Vol] 129 mg/dL <200 [facility] Work Phone: Comment on above: <200 mg/dL Desirable 200-240 mg/dL Borderline >240 mg/dL High Risk Eosinophils/100 WBC (Bld) 1.6 % 0-5 [facility] Work Phone: Glucose [Mass/Vol] 105 mg/dL 74-106 [facility] Work Phone: Comment on above: Fasting Glucose resu lt from 100 to 125 mg/dL suggests IMPAIRED HOMEOSTASIS per A.D.A. criteria. Neutrophils (Bld) [#/Vol] 4.0 10*3/uL 2.0-7.7 [facility] Work Phone: Neutrophils/100 WBC (Bld) 66.2 % 47-70 [facility] Work Phone: Potassium [Moles/Vol] 3.8 mmol/L 3.5-5.1 [facility] Work Phone: Protein [Mass/Vol] 7.3 g/dL 6.4-8.2 [facility] Work Phone: Sodium [Moles/Vol] 141 mmol/L 136-145 [facility] Work Phone: Triglyceride [Mass/Vol] 107 mg/dL [facility] Work Phone: Comment on above: The drugs N-Acetylcy steine and Metamizole may falsely depress this assay.Serum Triglycerides Reference Interval Normal <150 mg/dL Borderline high 150 - 199 mg/dL High 200 - 499 mg/dL Very High > or = 500 mg/dL WBC (Bld) [#/Vol] 6.1 10*3/uL 4.4-11.0 [facility] Work Phone: Blood erythrocytes count (nu mber/volume)on 06-30-2021 RBC (Bld) [#/Vol] 4.75 10*6/uL 4.6-6.2 [facility] Work Phone: [phone] Blood hemoglobin measurement (mass/volume)on 06-30-2021 Hemoglobin (Bld) [Mass/Vol] 14.6 g/dL 13.0-16.5 [facility] Work Phone: Blood lymphocytes/100 leukoc yteson 06-30-2021 Lymphocytes/100 WBC (Bld) 23.0 % 19-41 [facility] Work Phone: Blood monocytes/100 leukocyt eson 06-30-2021 Monocytes/100 WBC (Bld) 8.4 % 0-10 [facility] Work Phone: Blood platelet mean volumeon 06-30-2021 Platelet mean volume (Bld) [Entitic vol] 11.7 fL 6.2-12.0 [facility] Work Phone: Determination of erythrocyte mean corpuscular volume (MCV)on 06-30-2021 MCV (RBC) [Entitic vol] 89.7 fL 80-94 [facility] Work Phone: Hematocrit Auto (Bld) [Volum e fraction]on 06-30-2021 Hematocrit (Bld) [Volume fraction] 42.6 % 40-54 [facility] Work Phone: Laboratory - Chemistry and C hemistry - challengeon 06-30-2021 ALP [Catalytic activity/Vol] 101 U/L 45-117 [facility] Work Phone: ALT [Catalytic activity/Vol] 33 U/L 16-61 [facility] Work Phone: CO2 [Moles/Vol] 28.0 mmol/L 21.0-32.0 [facility] Work Phone: Globulin (S) [Mass/Vol] 3.7 g/dL 2.2-4.2 [facility] Work Phone: Urea nitrogen/Creatinine [Mass ratio] 18.1 mg/mg 10-20 [facility] Work Phone: Laboratory - Hematology and Cell countson 06-30-2021 Erythrocyte distribution width (RBC) [Entitic vol] 41.9 fL 35.1-43.9 [facility] Work Phone: Erythrocyte distribution width (RBC) [Ratio] 12.7 % 11.6-14.6 [facility] Work Phone: Immature granulocytes/100 WBC (Bld) 0.300 % 0.0-0.9 [facility] Work Phone: Comment on above: IG% - Immature Granu locytes (promyelocytes, myelocytes and metamyelocytes) > 1% indicates that a LEFT SHIFT is Present. MCH (RBC) [Entitic mass] 30.7 pg 27.0-32.0 [facility] Work Phone: Nucleated RBC/100 WBC (Bld) [Ratio] 0 % 0-5 [facility] Work Phone: MCHC Auto (RBC) [Mass/Vol]on 06-30-2021 MCHC (RBC) [Mass/Vol] 34.3 g/dL 32-36 [facility] Work Phone: No Panel Informationon 06-30 Estimated GFR (MDRD) Amer 80 mL/min >60 [facility] Work Phone: Comment on above: GFR Calc Estimated GFR (MDRD) Non-Af Amer 66 mL/min >60 [facility] Work Phone: Comment on above: Non- GFR Calc Prostate Specific Antigen Screen 8.66 ng/mL 0.00-4.00 [facility] Work Phone: Comment on above: This test was perfor med using the TPSA assay method for the[employer] chemistry system. Values obtained with differentassay methods cannot be used interchangably.When changing PSA assays in the course of monitoring apatient, additional sequential testing should be carriedout to confirm baseline values. Platelets bldon 06-30-2021 Platelets (Bld) [#/Vol] 195 10*3/uL 150-450 [facility] Work Phone: Serum or plasma albumin john urement (mass/volume)on 06-30-2021 Albumin [Mass/Vol] 3.6 g/dL 3.2-5.0 [facility] Work Phone: Serum or plasma albumin/glob ulin mass ratioon 06-30-2021 Albumin/Globulin [Mass ratio] 1.0 {ratio} 0.9-2.4 [facility] Work Phone: Serum or plasma calcium john urement (mass/volume)on 06-30-2021 Calcium [Mass/Vol] 8.9 mg/dL 8.5-10.1 [facility] Work Phone: Serum or plasma cholesterol in HDL measurement (mass/volume)on 06-30-2021 Cholesterol in HDL [Mass/Vol] 42 mg/dL [facility] Work Phone: Comment on above: The drugs N-Acetylcy steine and Metamizole may falsely depress this assay. Reference Range HDL <40 mg/dL Low HDL Cholesterol HDL >or= 60 mg/dL High HDL Cholesterol Serum or plasma cholesterol in VLDL measurement (mass/volume)on 06-30-2021 Cholesterol in VLDL [Mass/Vol] 21 mg/dL 5-40 [facility] Work Phone: Serum or plasma creatinine m easurement (mass/volume)on 06-30-2021 Creatinine [Mass/Vol] 1.16 mg/dL 0.70-1.30 [facility] Work Phone: Comment on above: The validity of the calculated GFR & GFRAA in patients over 70 years has not been determined. Clinical correlation is essential. Serum or plasma low density lipoprotein (LDL) cholesterol measurement (mass/volume)on 06-30-2021 Cholesterol in LDL [Mass/Vol] 66 mg/dL 0-130 [facility] Work Phone: Serum or plasma urea nitroge n measurement (mass/volume)on 06-30-2021 Urea nitrogen [Mass/Vol] 21 mg/dL 7-18 [facility] Work Phone: Thin prep Papanicolaou smear with manual screeningon 06-30-2021 Thin prep Papanicolaou smear with manual screening 24 U/L 15-37 [facility] Work Phone: Thin prep Papanicolaou smear with manual screening 6 5-15 [facility] Work Phone: Clinical Lists Update: Prelo lead janitor 11-08-2016 Alanine aminotransferase (ALT) 46 U/L Invalid Interpretation Code [facility] Work Phone: Alkaline phosphatase (ALP) 110 U/L Invalid Interpretation Code [facility] Phone: [phone] Aspartate aminotransferase (AST) 36 U/L Invalid Interpretation Code [facility] Phone: [phone] Bilirubin (total) 1.60 mg/dL High [facility] Phone: [phone] Office Visiton 11-03-2016 Dietary management education, guidance, and counseling (procedure) yes Invalid Interpretation Code [facility] Phone: [phone] Documentation of current medications (procedure) Done Invalid Interpretation Code [facility] Phone: [phone] Fall risk assessment No Invalid Interpretation Code [facility] Phone: [phone] Tobacco use CPHS Never smoker Invalid Interpretation Code [facility] Phone: [phone] Clinical Lists Update: Prelo lead janitor 10-31-2016 Cholesterol 130 mg/dL Invalid Interpretation Code [facility] Phone: [phone] HDL Cholesterol 46 mg/dL Invalid Interpretation Code [facility] Phone: [phone] LDL Cholesterol 54 mg/dL Invalid Interpretation Code [facility] Phone: [phone] Triglyceride 152 mg/dL Invalid Interpretation Code [facility] Phone: [phone] EKG Report: Midotterbein ECG Obse rvationson 04-28-2016 electrocardiogram interpretation Sinus Rhythm -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 ABNORMAL Invalid Interpretation Code [facility] Phone: [phone] GE use only - for Link[employer] import when terms are not otherwise specified 407 ms Invalid Interpretation Code [facility] Phone: [phone] P wave axis, electrocardiogram 51 deg Invalid Interpretation Code [facility] Phone: [phone] WV interval, electrocardiogram 172 ms Invalid Interpretation Code [facility] Phone: [phone] Pulse (Heart Rate) 78 /min Invalid Interpretation Code [facility] Phone: [phone] QRS axis, electrocardiogram -42 deg Invalid Interpretation Code [facility] Phone: [phone] QRS duration, electrocardiogram 104 ms Invalid Interpretation Code [facility] Phone: [phone] QT interval, electrocardiogram new path ms Invalid Interpretation Code [employer] Work Phone: [phone] T wave axis, electrocardiogram -1 deg Invalid Interpretation Code [employer] Work Phone: [phone] Clinical Lists Update: Prelo lead janitor 04-26-2016 Left ventricular Ejection fraction 60 % Invalid Interpretation Code [employer] Work Phone: [phone] Office Visit: [facility] 11-11-19 16 Cholesterol 137 mg/dL Invalid Interpretation Code [employer] Work Phone: [phone] HDL Cholesterol 46 mg/dL Invalid Interpretation Code [employer] Work Phone: [phone] LDL Cholesterol 61 mg/dL Invalid Interpretation Code [employer] Work Phone: [phone] Triglyceride 149 mg/dL Invalid Interpretation Code [employer] Work Phone: [phone] Lab Report: Basic Metabolic Profile (BMP)on 04-29-2015 Anion gap 7 mmol/L Invalid Interpretation Code 5-15 [employer] Work Phone: [phone] BUN/Creatinine Ratio 26.1 RATIO High 10-[address] [employer] [address] [employer] Work Phone: [phone] Calcium 8.7 mg/dL Invalid Interpretation Code 8.5-10.1 [employer] Work Phone: [phone] Chloride 107 mmol/L Invalid Interpretation Code 98-107 [employer] Work Phone: [phone] CO2 28.0 mmol/L Invalid Interpretation Code 21.0-32.0 [employer] Work Phone: [phone] Creatinine 1.11 mg/dL Invalid Interpretation Code 0.70-1.30 [facility] Phone: [phone] eGFR (non-black) 86 mL/min/{1.73_m2} Invalid Interpretation Code >60 [employer] Work Phone: [phone] eGFR (non-black) 71 mL/min/{1.73_m2} Invalid Interpretation Code >60 [employer] Work Phone: [phone] Glucose 110 mg/dL Invalid Interpretation Code 70-110 [employer] Work Phone: [phone] Potassium 3.8 mmol/L Invalid Interpretation Code 3.5-5.1 [facility] Work Phone: [phone] Sodium 142 mmol/L Invalid Interpretation Code 136-145 [facility] Work Phone: [phone] Urea nitrogen 29 mg/dL High 7-18 [facility] Work Phone: Office Visiton 10-08-2014 cardiac risk group C Invalid Interpretation Code [facility] Work Phone: [phone] General cardiovascular disease 10Y risk [#] [place]D'Agosthim[place]hu Not enough information Invalid Interpretation Code [facility] Work Phone: Vital Signs Date Time Vital Sign Value Performing Clinician Faci lity 07-03-2024 09:07-0400 Body height 170.[address] Saul Michelle MD Work Phone: [facility] 07-03-2024 09:07-0400 Body mass index (BMI) [Ratio] 28.8 kg/m2 Dr. Saul Michelle MD Work Phone: [facility] 07-03-2024 09:07-0400 Body weight 83.[address] Saul Michelle MD Work Phone: [facility] 07-03-2024 09:07-0400 Diastolic blood pressure 78 mm[Hg] Dr. Saul Michelle MD Work Phone: [facility] 07-03-2024 09:07-0400 Heart rate 88 /min Dr. Saul Michelle MD Work Phone: [facility] 07-03-2024 09:07-0400 Respiratory rate 16 /min Dr. Saul Michelle MD Work Phone: [facility] 07-03-2024 09:07-0400 Systolic blood pressure 142 mm[Hg] Dr. Saul Michelle MD Work Phone: [facility] 12-21-2021 09:44-0400 Body height 170.2 cm Aayush Wills MD Work Phone: [facility] 12-21-2021 09:44-0400 Body temperature 98.4 [degF] Aayush Wills MD Work Phone: [facility] 12-21-2021 09:44-0400 Body weight 80.11 kg Aayush Wills MD Work Phone: [facility] 12-21-2021 09:44-0400 Diastolic blood pressure 80 mm[Hg] Aayush Wills MD Work Phone: [facility] 12-21-2021 09:44-0400 Heart rate 82 /min Aayush Wills MD Work Phone: [facility] 12-21-2021 09:44-0400 Respiratory rate 14 /min Aayush Wills MD Work Phone: [facility] 12-21-2021 09:44-0400 SaO2% (BldA) [Mass fraction] 98 % Aayush Wills MD Work Phone: [facility] 12-21-2021 09:44-0400 Systolic blood pressure 140 mm[Hg] Aayush Wills MD Work Phone: [facility] 11-03-2016 11:02-0400 BMI (Body Mass Index) 27.82 kg/m2 [facility] Work Phone: 11-03-2016 11:02-0400 BP Diastolic 78 mm[Hg] [facility] Work Phone: 11-03-2016 11:02-0400 BP Systolic 138 mm[Hg] Karen Gomez [facility] Work Phone: 11-03-2016 11:02-0400 Height 172.72 cm Karen Gomez [facility] Work Phone: 11-03-2016 11:02-0400 Pulse (Heart Rate) 68 /min [facility] Work Phone: 11-03-2016 11:02-0400 Respiratory Rate 18 /min [facility] Work Phone: 11-03-2016 11:02-0400 Weight 83.01 kg [facility] Work Phone: 04-28-2016 [phone] BSA (Body Surface Area) 1.96 m2 Karen Gomez [facility] Work Phone: 10-08-2014 [phone] Height 172.72 cm Karen Gomez [facility] Work Phone: Encounters Encounter Date Encounter Type Care Provider Facility Start: 08-28-2024 End: 08-28-[address] Saul Michelle MD Work Phone: -Laboratory [facility] Start: 08-28-2024 End: 08-28-[address] Saul Michelle MD -[facility] Start: 08-28-2024 End: 08-28-2024 ambulatory Saul Michelle Facility:[facility] Start: 07-03-2024 End: 07-03-[address] Eric Gooden MD -[facility] Work Phone: Start: 07-03-2024 End: 07-03-2024 ambulatory Saul Michelle Facility:[facility] Start: 01-17-2024 End: 01-17-2024 ambulatory Saul Michelle Facility:[facility] Start: 01-03-2024 End: 01-03-2024 ambulatory Saul Michelle Facility:[facility] Start: 10-04-2023 End: 10-04-2023 ambulatory Christoph Ramirez Facility:[facility] Start: 09-27-2023 ambulatory Blake Martinez Facility:[place] Start: 09-27-2023 End: 09-27-2023 ambulatory Saul Michelle Facility:[facility] Start: 12-25-2022 End: 12-25-2022 ambulatory [facility] Work Phone: Start: 12-25-2022 End: 12-25-2022 Patient encounter procedure [facility] Work Phone: Start: 12-21-2022 End: 12-21-2022 Patient encounter procedure [facility] Work Phone: Start: 08-24-2022 Non-patient / Non-visit Dr. Nicolasa Michelle Work Phone: [facility] Start: 08-24-2022 End: 08-24-[address] Saul Michelle Work Phone: [facility] Work Phone: Start: 08-24-2022 End: 08-24-[address] Saul Michelle Work Phone: [facility] Start: 07-27-2022 Non-patient / Non-visit Dr. Nicolasa Michelle Work Phone: [facility] Start: 07-27-2022 End: 07-27-[address] Saul Michelle Work Phone: [facility] Work Phone: Start: 07-27-2022 End: 07-27-[address] Saul Michelle Work Phone: [facility] Start: 07-06-2022 End: 07-06-2022 ambulatory [facility] Work Phone: Start: 07-06-2022 End: 07-06-2022 Patient encounter procedure [facility] Start: 07-05-2022 Refill Aayush Rodriguez MD Work Phone: [facility] Comment on above: Refill Request Start: 12-30-2021 Orders Only Supriya Ivey LPN [facility] Comment on above: Patient Question Start: 12-29-2021 End: 12-29-2021 ambulatory AAYUSH WILLS Facility:[facility] Start: 12-21-2021 End: 12-21-2021 ambulatory AAYUSH WILLS Facility:[id number] Start: 12-21-2021 End: 12-21-2021 Office outpatient visit 15 minutes Aayush Wills MD Work Phone: [facility] [place] Comment on above: Benign essential HTN (Primary Dx); Mixed hyperlipidemia Start: 06-30-2021 End: 06-30-2021 Patient encounter procedure [facility] [place] Procedures Date Procedure Procedure Detail Performing Clinician Start: 08-28-2024 Urnls dip stick/tabl et reagent auto microscopy Dr. Saul Michelle MD Work Phone: Start: 08-28-[address] Saul Michelle MD Work Phone: Comment on above: Deficiency: <3.4 Mar ginal: 3.4 - 5.1 Adequate: >5.1 Start: 08-24-2022 US scan of thyroid Dr. Saul Michelle Work Phone: Start: 11-03-2016 End: 11-03-2016 Follow Up Appt 1 year Luis Felipe Campos Start: 11-03-2016 End: 11-03-2016 PFM Luis Felipe Alfred MD Start: 04-28-2016 End: 04-28-2016 Follow Up Appt 6 months Ivon abad PA-C Work Phone: Start: 04-28-2016 End: 04-28-2016 PFM Ivon Ramirez PA-C Work Phone: Start: 11-01-2015 End: 11-01-2015 Follow Up Appt 6 months Luis Felipe Alfred MD Start: 11-01-2015 End: 11-01-2015 Follow Up Appt Other Luis Felipe Alfred MD Start: 11-01-2015 End: 11-01-2015 MMAldo Alfred MD Start: 04-28-2015 End: 04-14-2016 *BMP Ivon Ramirez PA-C Work Phone: Start: 04-21-2015 End: 04-14-2016 Follow Up Appt 6 months Ivon abad PA-C Work Phone: Start: 04-21-2015 End: 04-14-2016 PFM Ivon Ramirez PA-C Work Phone: Start: 01-20-2015 End: 01-20-2015 Follow Up Appt 3 months Luis Felipe Alfred MD Start: 01-20-2015 End: 01-20-2015 RAKESH Alfred MD Start: 11-27-2014 End: 11-28-2014 Documentation of current medications Ivon Ramirez PA-C Work Phone: Start: 11-27-2014 End: 11-27-2014 Follow Up Appt 6 weeks Ivon lantigua PA-C Work Phone: Start: 11-27-2014 End: 11-27-2014 Follow Up BP Check Ivon Ramirez PA-C Work Phone: Start: 11-27-2014 End: 11-27-2014 PFM Ivon Ramirez PA-C Work Phone: Start: 10-08-2014 End: 10-09-2014 Documentation of current medications Luis Felipe Alfred MD Start: 10-08-2014 End: 10-08-2014 Electrocardiogram, complete Luis Felipe Alfred MD Start: 10-08-2014 End: 10-08-2014 Follow Up Appt 6 weeks Luis Felipe Alfred MD Start: 10-08-2014 End: 10-08-2014 RAKESH Alfred MD Start: 10-08-2014 End: 11-27-2014 Remote 30 day ecg rev/report Luis Felipe Alfred MD History of repair of inguinal hernia S/P left inguinal hernia repair Comment on above: Patient is recoverin g well 2 weeks status post left inguinal hernia repair (Lucy type). Pain is minimal and bowel habits have returned to normal. The wound is healing well. I have reiterated the need to maintain activity restrictions and ensure a full 4 to 6 weeks of recuperation. To this end, Mr. Guajardo requests 1 more week off of work and then will plan to return to work with a minimum of 3 weeks of light duty. Otherwise, he is encouraged to continue frequent ambulation. Plan of Treatment Date Care Activity Detail Author Start: 12-29-2026 LIPID SCREEN LIPID SCREEN [facility] Start: 12-29-2024 DIABETES SCREEN DIABETES SCREEN [facility] Start: 12-21-2022 ANNUAL PCP TEAM BOBBIN DUMPER MARTIN DISEASE VISIT ANNUAL PCP TEAM CHRONIC DISEASE VISIT [facility] Start: 11-03-2022 Influenza vaccination INFLUENZA (Sea son Ended) [facility] Start: 03-05-2022 ADVANCE DIRECTIVE DISCUSSION ADVANCE DIRECTIVE DISCUSSION [facility] Start: 03-05-2022 DEPRESSION ASSESSMENT DEPRESSION ASS [facility] Start: 12-21-2021 End: 02-20-2022 Comprehensive metabolic 2000 panel - Serum or Plasma COMP METABOLIC PANEL Lab Routine Benign essential HTN Mixed hyperlipidemia Expected: 12/21/2021, Expires: 02/20/2022 [facility] Work Phone: Comment on above: Expected: 12/21/2021 , Expires: 02/20/2022 Start: 12-21-2021 End: 02-20-2022 Lipid 1996 panel - Serum or Plasma LIPID PANEL BASIC Lab Routine Mixed hyperlipidemia Expected: 12/21/2021, Expires: 02/20/2022 [facility] Work Phone: Comment on above: Expected: 12/21/2021 , Expires: 02/20/2022 Start: 11-03-2021 Influenza vaccination INFLUENZA (#1) [facility] Start: 03-05-2021 ADVANCE DIRECTIVE DISCUSSION ADVANCE DIRECTIVE DISCUSSION [facility] Start: 03-05-2021 [facility] Start: 11-07-2017 End: 11-07-2017 Appointment Appointment [facility] Work Phone: Start: 11-03-2016 End: 11-03-2016 Follow Up Appt 1 year Follow Up Appt 1 year [facility] Work Phone: Start: 11-03-2016 End: 11-03-2016 PFM PFM [facility] Work Phone: Start: 05-27-2016 PNEUMOCOCCAL: 65+ (1 - PCV) PNEUMOCOCCAL: 65+ (1 - PCV) [facility] Start: 04-28-2016 End: 04-28-2016 Follow Up Appt 6 months Follow Up Appt 6 months [facility] Work Phone: Start: 04-28-2016 End: 04-28-2016 PFM PFM [facility] Work Phone: Start: 11-01-2015 End: 11-01-2015 Follow Up Appt 6 months Follow Up Appt 6 months [facility] Work Phone: Start: 11-01-2015 End: 11-01-2015 Follow Up Appt Other Follow Up Appt Other [facility] Work Phone: Start: 11-01-2015 End: 11-01-2015 MMM MMM [facility] Work Phone: Start: 04-28-2015 End: 04-14-2016 *BMP *BMP [facility] Work Phone: Start: 04-21-2015 End: 04-14-2016 Follow Up Appt 6 months Follow Up Appt 6 months [facility] Work Phone: Start: 04-21-2015 End: 04-14-2016 PFM PFM [facility] Work Phone: Start: 01-20-2015 End: 01-20-2015 Follow Up Appt 3 months Follow Up Appt 3 months [facility] Work Phone: Start: 01-20-2015 End: 01-20-2015 MMM MMM [facility] Work Phone: Start: 11-27-2014 End: 11-27-2014 Follow Up Appt 6 weeks Follow Up Appt 6 weeks [facility] Work Phone: Start: 11-27-2014 End: 11-27-2014 Follow Up BP Check Follow Up BP Check [facility] Phone: Start: 11-27-2014 End: 11-27-2014 PFM PFM [facility] Phone: Start: 10-08-2014 End: 10-08-2014 Electrocardiogram, complete EKG (In office) [facility] Phone: Start: 10-08-2014 End: 10-08-2014 Follow Up Appt 6 weeks Follow Up Appt 6 weeks [facility] Phone: Start: 10-08-2014 End: 10-08-2014 MMM MMM [facility] Phone: Start: 10-08-2014 End: 11-27-2014 Remote 30 day ecg rev/report 30 Day Holter Monitor [facility] Phone: Start: 05-27-2001 SHINGRIX VACCINE (1 of 2) SHINGRIX VACCINE (1 of 2) [facility] Start: 05-27-1996 COLOGUARD (FIT-DNA) COLOGUARD (FIT-D NA) [facility] Start: 05-27-1996 Colonoscopy COLONOSCOPY [facility] Start: 05-27-1996 COLORECTAL CANCER SCREENING COLORECTAL CANCER SCREENING [facility] Start: 05-27-[address] COLONOGRAPHY [facility] Start: 05-27-1996 DIABETES SCREEN DIABETES SCREEN [facility] Start: 05-27-1996 FECAL OCCULT BLOOD FECAL OCCULT BLOO D [facility] Start: 05-27-1996 SIGMOIDOSCOPY SIGMOIDOSCOPY [facility] Start: 05-27-1986 LIPID SCREEN LIPID SCREEN [facility] Start: 05-27-1970 Urine microalbumin profile DTAP,TDAP,TD (1 - Tdap) [facility] Start: 05-27-1969 BP CONTROLLED (<130/80) BP CONTROLLE D (<130/80) [facility] Start: 05-27-1969 HEPATITIS C SCREENING HEPATITIS C SC LETTY [facility] Start: 1950 COVID-19 VACCINE (#1) COVID-19 VACCI NE (#1) [facility] Payers Date Payer Category Payer Self-pay [id number] 2020 Medicare HUMANA MEDICARE HUMANA GOLD PLUS [id number] 2020-Present [phone] [address] [address] [place] [address] HMO [id number] 2020 Private Health Insurance [id number] 2016 Medicare [id number] Unknown [id number] Unknown [facility] [id number] Unknown [id number] 62 Unknown [id number] 62 Unknown [id number] 62 Unknown [id number] 62 Unknown [id number] 62 Unknown [id number] 62 Unknown [id number] 62 Social History Date Type Detail Facility Start: 01-05-2021 End: 01-05-2022 Tobacco smoking status NHIS Unknown if ever smoked [facility] Start: 09-06-2014 None [facility] Start: 09-06-2014 With Family [facility] Start: 09-06-2014 Non-smoker [facility] Start: 1950 Sex Assigned At Male [facility] Start: 12-21-2021 End: 03-15-2023 Tobacco smoking status NHIS Never smoked tobacco [facility] Start: 12-21-2021 Tobacco use and exposure Smokeless tobacco non-user [facility] Start: 12-21-2021 Alcohol intake Ex-drinker (finding) [facility] Start: 1950 Sex Assigned At Not on file [facility] Start: 12-11-2021 End: 12-21-2021 Exposure to SARS-CoV-2 (event) Not sure [facility] NEGATED: Highlighted rowStart: NINF History of tobacco use Passive smoker [facility] Medical Equipment Procedure Code Equipment Code Equipment Origin al Text Equipment Identifier Dates Repair, hernia, inguinal, with mesh insertion MESH,PROLENE [id number] FDA Start: 11-26-2020 Repair, hernia, inguinal, with mesh insertion MESH,PROLENE [id number] FDA Start: 11-26-2020 Repair, hernia, inguinal, with mesh insertion MESH,PROLENE [id number] FDA Start: 11-26-2020 Repair, hernia, inguinal, with mesh insertion MESH,PROLENE [id number] FDA Start: 11-26-2020 Repair, hernia, inguinal, with mesh insertion MESH,PROLENE [id number] FDA Start: 11-26-2020 Repair, hernia, inguinal, with mesh insertion MESH,PROLENE [id number] FDA Start: 11-26-2020 Evaluation note 07-03-2024 Note Date & Type Note Facility 07-03-2024 Evaluation note Diagnosis Onset Date Resolution Essential hypertension chronic Ma 2024 9:06am Hyperlipidemia chronic July 03 9:06am [facility] Work Phone: Note 07-05-2022 Telephone Encounter - Waleska Mcleod LPN - 07/05/2022 2:24 PM EDT Note Date & Type Note Facility 07-05-2022 Miscellaneous Notes Formattin g of this note is different from the original. Pharmacy LeadiDt message requesting the following refill. Requested Prescriptions Pending Prescriptions Disp Refills atorvastatin (LIPITOR) 40 mg tablet [Pharmacy Med Name: ATORVASTATIN CALCIUM 40 MG Tablet] 90 tablet 3 Sig: TAKE 1 TABLET EVERY DAY Patient last appointment: 12/21/2021 Patient Phone numbers: [phone] (home) Request is for script(s) to be escript to mail order [facility]. Waleska Mcleod LPN documented in this encounter [facility] Note 01-02-2022 Telephone Encounter - Supriya Ivey LPN - 01/02/2022 9:28 AM EDTTelephone Encounter - Supriya Ivey LPN - 01/02/2022 9:18 AM EDTTelephone Encounter - Supriya Ivey LPN - 12/30/2021 1:18 PM EDT Note Date & Type Note Facility 01-02-2022 Miscellaneous Notes Formattin g of this note might be different from the original. Patient's significant other returned phone call. Information given and verbalized understanding. Supriya Ivey LPN January 02, 2022 9:29 AM Message left for patient to phone office at earliest convenience in regards to medication Supriya Ivey LPN January 02, 2022 9:18 AM Please instruct patient to stop taking the Hydrochlorothiazide 25mg tablet. He is to take the valsartan-HCTZ combo pill as prescribed by Dr. Wills. Patient to monitor BP closely and is to notify office if BP is consistently above 140/90. Go to ER if BP is greater than 180/110. Please remove the hydrochlorothiazide 25mg from his active medication list. Thanks! Patients significant other phoned office. Patient was seen 12-21-[address] Wills. Patient was prescribed Valsartan Hydrochlorothiazide 160-25 mg tablet take 1 tablet daily, at this appointment. Patient was already taking Hydrochlorothiazide 25 mg 1 tablet by mouth daily, that was not added to active medication list during visit. (This nurse added to medication list during this current encounter.) Significant other is questioning what patient is to take. If to take just the Valsartan Hydrochlorothiazide or Hydrochlorothiazide, or both. Copied from Dr. Wills's chart note for visit: Discontinue lisinopril begin valsartan. Include hydrochlorothiazide dose and valsartan. Patient is taking Valsartan Hydrochlorothiazide and not additional Hydrochlorothiazide until confirmation Supriya Ivey LPN December 30, 2021 1:14 PM documented in this encounter [facility] Progress note 12-30-2021 Note Date & Type Note Facility 12-30-2021 Note HNO ID: [id number] Author: Supriya Ivey LPN Service: ? Author Type: LICENSED NURSE Type: Progress Notes Filed: 12/30/2021 1:17 PM Note Text: Patients significant other phoned office. Patient was seen 12-21-[address] Wills. Patient was prescribed Valsartan Hydrochlorothiazide 160-25 mg tablet take 1 tablet daily, at this appointment. Patient was already taking Hydrochlorothiazide 25 mg 1 tablet by mouth daily, that was not added to active medication list during visit. (This nurse added to medication list during this current encounter.) Significant other is questioning what patient is to take. If to take just the Valsartan Hydrochlorothiazide or Hydrochlorothiazide, or both. Copied from Dr. Wills's chart note for visit: Discontinue lisinopril begin valsartan. Include hydrochlorothiazide dose and valsartan. Patient is taking Valsartan Hydrochlorothiazide and not additional Hydrochlorothiazide until confirmation Supriya Ivey LPN December 30, 2021 1:14 PM [facility] History of Present illness Narrative 12-30-2021 Supriya Ivey LPN - 12/30/2021 1:04 PM EDT Note Date & Type Note Facility 12-30-2021 History of Presen t illness Narrative Patients significant other phoned office. Patient was seen 12-21-[address] Wills. Patient was prescribed Valsartan Hydrochlorothiazide 160-25 mg tablet take 1 tablet daily, at this appointment. Patient was already taking Hydrochlorothiazide 25 mg 1 tablet by mouth daily, that was not added to active medication list during visit. (This nurse added to medication list during this current encounter.) Significant other is questioning what patient is to take. If to take just the Valsartan Hydrochlorothiazide or Hydrochlorothiazide, or both. Copied from Dr. Wills's chart note for visit: Discontinue lisinopril begin valsartan. Include hydrochlorothiazide dose and valsartan. Patient is taking Valsartan Hydrochlorothiazide and not additional Hydrochlorothiazide until confirmation Supirya Ivey LPN December 30, 2021 1:14 PM documented in this encounter [facility] Progress note 12-21-2021 Note Date & Type Note Facility 12-21-2021 Note HNO ID: [id number] Author: Aayush Wills MD Service: ? Author Type: Physician Type: Progress Notes Filed: 12/21/2021 11:00 AM Note Text: This note was created using Peerformriter. Subjective Mann Guajardo is a 71 year old male. Patient presents today for follow-up for multiple medical problems. See list. His chronic medical problems are stable. Blood pressures been under good control on his current regimen. Cholesterols been well controlled with Lipitor. He does complain today of cough associated with his lisinopril. Review of Systems Constitutional: Negative. HENT: Negative. Eyes: Negative. Respiratory: Negative. Cardiovascular: Negative. Gastrointestinal: Negative. Endocrine: Negative. Genitourinary: Negative. Musculoskeletal: Negative. Skin: Negative. Allergic/Immunologic: Negative. Neurological: Negative. Hematological: Negative. Psychiatric/Behavioral: Negative. Objective BP 140/80 (BP Site: Right Arm, BP Cuff Size: Large Adult) Pulse 82 Temp 36.9 ?C (98.4 ?F) (Temporal) Resp 14 Ht 170.2 cm (5' 7) Wt 80.1 kg (176 lb 9.6 oz) SpO2 98% BMI 27.66 kg/m? Physical Exam Vitals reviewed. Constitutional: Appearance: Normal appearance. HENT: Head: Normocephalic and atraumatic. Nose: Nose normal. Eyes: Extraocular Movements: Extraocular movements intact. Pupils: Pupils are equal, round, and reactive to light. Cardiovascular: Rate and Rhythm: Normal rate and regular rhythm. Pulmonary: Effort: Pulmonary effort is normal. Breath sounds: Normal breath sounds. Abdominal: General: Bowel sounds are normal. Palpations: Abdomen is soft. Musculoskeletal: General: Normal range of motion. Cervical back: Normal range of motion and neck supple. Skin: General: Skin is warm and dry. Capillary Refill: Capillary refill takes less than 2 seconds. Neurological: General: No focal deficit present. Mental Status: He is alert and oriented to person, place, and time. Mental status is at baseline. Psychiatric: Mood and Affect: Mood normal. Behavior: Behavior normal. Assessment and Plan Mann was seen today for 6 month exam. Diagnoses and all orders for this visit: Benign essential HTN - COMP METABOLIC PANEL; Future Mixed hyperlipidemia - COMP METABOLIC PANEL; Future - LIPID PANEL BASIC; Future Other orders - Valsartan-hydroCHLOROthiazide (DIOVAN HCT) 160-25 mg per tablet; Take 1 tablet by mouth once daily. Discontinue lisinopril begin valsartan. Include hydrochlorothiazide dose and valsartan. Monitor blood pressure regularly. Follow-up if blood pressure increases. Labs as above. [facility] History of Present illness Narrative 12-21-2021 Aayush Wills MD - 12/21/2021 10:06 AM EDT Note Date & Type Note Facility 12-21-2021 History of Presen t illness Narrative This note was created using Peerformriter. Subjective Mann Guajardo is a 71 year old male. Patient presents today for follow-up for multiple medical problems. See list. His chronic medical problems are stable. Blood pressures been under good control on his current regimen. Cholesterols been well controlled with Lipitor. He does complain today of cough associated with his lisinopril. Review of Systems Constitutional: Negative. HENT: Negative. Eyes: Negative. Respiratory: Negative. Cardiovascular: Negative. Gastrointestinal: Negative. Endocrine: Negative. Genitourinary: Negative. Musculoskeletal: Negative. Skin: Negative. Allergic/Immunologic: Negative. Neurological: Negative. Hematological: Negative. Psychiatric/Behavioral: Negative. Objective BP 140/80 (BP Site: Right Arm, BP Cuff Size: Large Adult) Pulse 82 Temp 36.9 C (98.4 F) (Temporal) Resp 14 Ht 170.2 cm (5' 7) Wt 80.1 kg (176 lb 9.6 oz) SpO2 98% BMI 27.66 kg/m Physical Exam Vitals reviewed. Constitutional: Appearance: Normal appearance. HENT: Head: Normocephalic and atraumatic. Nose: Nose normal. Eyes: Extraocular Movements: Extraocular movements intact. Pupils: Pupils are equal, round, and reactive to light. Cardiovascular: Rate and Rhythm: Normal rate and regular rhythm. Pulmonary: Effort: Pulmonary effort is normal. Breath sounds: Normal breath sounds. Abdominal: General: Bowel sounds are normal. Palpations: Abdomen is soft. Musculoskeletal: General: Normal range of motion. Cervical back: Normal range of motion and neck supple. Skin: General: Skin is warm and dry. Capillary Refill: Capillary refill takes less than 2 seconds. Neurological: General: No focal deficit present. Mental Status: He is alert and oriented to person, place, and time. Mental status is at baseline. Psychiatric: Mood and Affect: Mood normal. Behavior: Behavior normal. Assessment and Plan Mann was seen today for 6 month exam. Diagnoses and all orders for this visit: Benign essential HTN - COMP METABOLIC PANEL; Future Mixed hyperlipidemia - COMP METABOLIC PANEL; Future - LIPID PANEL BASIC; Future Other orders - Valsartan-hydroCHLOROthiazide (DIOVAN HCT) 160-25 mg per tablet; Take 1 tablet by mouth once daily. Discontinue lisinopril begin valsartan. Include hydrochlorothiazide dose and valsartan. Monitor blood pressure regularly. Follow-up if blood pressure increases. Labs as above. documented in this encounter [facility] Evaluation note Note Date & Type Note Facility Evaluation note [facility] Evaluation note Note Date & Type Note Facility Evaluation note Diagnosis Benign essential HTN- Primary Essential hypertension, benign Mixed hyperlipidemia documented in this encounter [facility] Reason for referral (narrative) Note Date & Type Note Facility Reason for referral (narrative) No reason for referral information available [facility] Work Phone: Advance Directives No Advanced Directives Records Found Advance Directive Response Recorded Date/ Time Advance Directives Yes September 06 10:23pm Living Will Yes November 23, 2020 3:08pm Power of Sql Ssis Developer Yes November 3:08pm Advance Directive Response Recorded Date/ Time Living Will Yes November 23, 2020 3:08pm Do you have a Healthcare Power of Sql Ssis Developer? Yes November 23, 2020 3:08pm Advance Directives Yes September 06 10:23pm Summary Purpose Family History No Family History Records Found Chief Complaint and Reason for Visit Chief Complaint THROMEGALY Chief Complaint THROMEGALY STROKE Chief Complaint EORDER EORDER Chief Complaint Admit Date 1 Y FU July 03, 2024 9:06am Reason for Visit Admit Date Essential hypertension July 03, 2024 9:0 6am Hyperlipidemia July 03, 2024 9:06am Additional Source Comments Goals (unrecognized section and content) Goals may be documented in a n alternate sectionGoals may be documented in an alternate sectionGoals may be documented in an alternate sectionGoals may be documented in an alternate sectionGoals may be documented in an alternate sectionGoals may be documented in an alternate section Source Comments (unrecognize d section and content) In the event this informatio n is protected by the Federal Confidentiality of Alcohol and Drug Abuse Patient Records regulations: The Federal rules restrict any use of the information to criminally investigate or prosecute any alcohol or drug abuse patient.[facility] event this information is protected by the Federal Confidentiality of Alcohol and Drug Abuse Patient Records regulations: The Federal rules restrict any use of the information to criminally investigate or prosecute any alcohol or drug abuse patient.[facility] the event this information is protected by the Federal Confidentiality of Alcohol and Drug Abuse Patient Records regulations: The Federal rules restrict any use of the information to criminally investigate or prosecute any alcohol or drug abuse patient.[facility] the event this information is protected by the Federal Confidentiality of Alcohol and Drug Abuse Patient Records regulations: The Federal rules restrict any use of the information to criminally investigate or prosecute any alcohol or drug abuse patient.[facility] Reason for Visit (unrecogniz ed section and content) Reason Comments 6 Month Exam 6 month f/u for HTN pt has complaints of cough x 5 years Reason Comments Patient Question Reason Comments Refill Request Care Teams (unrecognized sec tion and content) Bow Stapler Relationship Specialty Start Date End Date Aayush Wills MD [address] [place], [place] [id number] PCP - General Family Medicine 12/20/21 Bow Stapler Relationship Specialty Start Date End Date Aayush Wills MD [address] [place], [place] [address] PCP - General Family Medicine 12/20/21 Bow Stapler Relationship Specialty Start Date End Date Aayush Wills MD [address] [place] [address] PCP - General Family Medicine 12/20/21 Team Status: Active Member Role Status Dates Aayush PULIDO Family Provider Active Dr. Saul Michelle MD Primary Care Provider Active Team Status: Inactive Member Role Status Dates Dr. Saul Michelle MD Primary Care Provider, Attend ing Provider Active Team Status: Active Member Role Status Dates Dr. Saul Michelle MD Primary Care Provider Active Dr. Eric Gooden MD Attending Provider Active Team Status: Inactive Member Role Status Dates Dr. Saul Michelel MD Primary Care Pr ovider, Attending Provider, Referring Provider Active Team Status: Active Member Role Status Dates Dr. Saul Michelle MD Primary Care Provider Active Dr. Venu Mckeon MD Attending Provider Active Team Status: Active Member Role/Relationship Status Dates Aayush PULIDO Family Provider Active Dr. Saul Michelle MD Primary Care Provider Active Team Status: Inactive Member Role/Relationship Status Dates Dr. Saul Michelle MD Primary Care Provider Active Start: July 03, 2024 End: July 03, 2024 Dr. Saul Michelle MD Referring Provider Active Start: July 03, 2024 End: July 03, 2024 Dr. Eric Gooden MD Attending Provider Active S tart: July 03, 2024 End: July 03, 2024 Team Status: Inactive Member Role/Relationship Status Dates Dr. Saul Michelle MD Primary Care Provider Active Start: August 28, 2024 End: August 28, 2024 Dr. Saul Michelle MD Attending Provider Active Start: August 28, 2024 End: August 28, 2024 Dr. Saul Michelle MD Referring Provider Active Start: August 28, 2024 End: August 28, 2024 (unrecognized sect ion and content) No Status Records FoundNo Status Records FoundNo Status Records Found INFORMATION SOURCE (unrecogn ized section and content) DATE CREATED AUTHOR 12/30/2021 [facility] DATE CREATED AUTHOR AUTHOR'S ORGANIZ ATION 01/02/2022 [facility] DATE CREATED AUTHOR AUTHOR'S ELBERT ATION 09/02/2024 [facility] FOR RECORDS PERTAINING TO PATIENTS WHO ARE OR HAVE BEEN ENROLLED IN A CHEMICAL DEPENDENCY/SUBSTANCEABUSE PROGRAM, SOME INFORMATION MAY BE OMITTED. This clinical summary was aggregated from multiple sources. Caution should be exercised in using it in the provision of clinical care. This summary normalizes information from multiple sources, and as a consequence, information in this document may materially change the coding, format and clinical context of patient data. In addition, data may be omitted in some cases. CLINICAL DECISIONS SHOULD BE BASED ON THE PRIMARY CLINICAL RECORDS. [email or web address] provides no warranty or guarantee of the accuracy or completeness of information in this document.
[2025-01-01 12:15] LABS: Hematocrit 40.6 % (40-54); Hemoglobin 14.1 g/dL (13.0-16.5); Immature Granulocytes Count 0.010 X10^3/uL (0.0-0.0); Mean Corp Hgb Conc 34.7 g/dL (32-36); Mean Corpuscular Volume 88.3 fL (80-94); Mean Platelet Vol. 11.3 fl (6.2-12.0); NRBC Flagged by Analyzer 0 % (0-5); Platelet Count 204 K/mm3 (150-450); RBC Distribution Width CV 12.7 % (11.6-14.6); RBC Distribution Width SD 41.2 fl (35.1-43.9); Red Blood Count 4.60 M/mm3 (4.6-6.2); White Blood Count 5.4 K/mm3 (4.4-11.0)
[2025-01-01 12:32] LABS: Color, Urine Yellow (Yellow); Glucose, Dipstick Normal (Normal); Ketone-Dipstick Negative (Negative); Leukocyte Esterase-Dipstick Negative /ul (Negative); Nitrite-Dipstick Negative (Negative); Occult Blood-Urine 10 /ul (Negative); Protein-Dipstick 15 mg/dl (Negative); Specific Gravity, Urine 1.015 (1.002-1.030); Urine Bilirubin Dipstick Negative (Negative)
[2025-01-01 12:59] LABS: Mucous, Urine 1+ /hpf (<or=2+); Red Blood Cells-Urine 0-5 SEEN /hpf (0-5); Squamous Epithelial Cells - UA 0-5 SEEN /hpf (0-5)
[2025-01-01 13:23] LABS: AST(SGOT) 31 U/L (<=37); Alanine Aminotransfer ALT/SGPT 29 U/L (<=46); Albumin, Serum 4.1 g/dL (3.4-4.8); Alkaline Phosphatase 99 U/L (40-129); Anion Gap 10 (5-15); BUN 17 mg/dL (4-19); BUN/Creat Ratio 17.2 RATIO (10-20); Calcium,Total 9.4 mg/dL (7.6-11.0); Carbon Dioxide 26.5 mmol/L (21.0-32.0); Chloride 101 mmol/L (98-108); Cholesterol 116 mg/dL (<=200); Globulin 2.9 g/dL (2.2-4.2); Glucose 117 mg/dL (70-99); Low Density Lipoprotein Calc. 55 mg/dL; Potassium 3.9 mmol/L (3.3-5.1); Triglycerides 93 mg/dL; Very Low Density Lipoprotein 19 mg/dL (5-40); Vitamin B12 560 pg/mL (180-914); cholesterol:hdl ratio screen 2.69
== END | disposition home or self-care (01) ==
LOC: MFPLAB 10:56
PROVIDERS: PCP Family Medicine; Visit Provider Family Medicine
DX: R73.02 Impaired glucose tolerance (oral) (principal); I10 Essential (primary) hypertension
CPT/HCPCS: 36415; 80053; 80061; 81001; 82607; 83036; 85025

== ENCOUNTER → 2025-01-22 | Outpatient (CLI) | payer MEDICARE, SELFPAY ==
--- NOTE | 2025-01-22 11:56 | US_ITS ---
PROCEDURE: THYROID 01/22/2025 REASON FOR EXAM: NODULE, DUE FOR REPEAT IN 01/2025 TECHNIQUE: Procedure Code: USTHY Modality: US Procedure: THYROID COMPARISON: January 17, 2024. FINDINGS: Right thyroid lobe size: 3.9 cm 1.3 cm x 2 cm Left thyroid lobe size: 4.6 cm 1.4 cm x 1.3 cm Isthmus: 0.3 cm Background parenchymal echotexture is homogeneous. Nodules: . Lobe: Right, Location: Superior pole, Size: 0.7 cm 0.6 cm x 0.5 cm, Stability: Stable Composition: Cystic or mostly cystic (+0) Echogenicity: Anechoic (+0) Margin: Smooth (+0) Shape: Wider than tall (+0) Echogenic Foci: None (+0) TI-RADS: 0 . Lobe: Right, Location: Midpole, Size: 1.1 cm 1 cm 0.7 cm, Stability: Stable Composition: Mixed cystic and solid (+1) Echogenicity: Hypoechoic (+2) Margin: Smooth (+0) Shape: Wider than tall (+0) Echogenic Foci: None (+0) TI-RADS: 3 US/Thyroid IMPRESSION: Stable heterogeneous nodule in the midportion of the right lobe of the thyroid as described. Routine follow-up recommended. RECOMMENDATION: Based on most suspicious nodule. Nodule size = largest diameter Only evaluate nodule if =>5 mm. Growth > 20% in 2 dimensions = worsening. Follow up to 4 nodules. Recommend biopsy for no more than 2 nodules. Reading Location: [facility]
--- OUTSIDE RECORDS SUMMARY | 2025-01-22 18:20 | XMS RPT_ITS | CCD ---
Author Organization [facility] Care Team Providers Care Satellite Tv Technician Name Role Phone DeFinis, Harumi Y Unavailable Unavailable DeFinis, Harumi Y Unavailable Unavailable Karen Gomez Y Unavailable Gamaliel CARPIO, Aayush Yadav Primary Care Provider AAYUSH WILLS Referring Unavailab AAYUSH Hawthorne Primary Care UnavailAAYUSH Marlow Attending Unavailab AAYUSH Hawthorne Primary Care Unavailab Wen CARPIO, Aayush Yadav Primary Care Provider Dr. Saul Michelle Primary Care Provider 1([facility] )[phone] Dr. Eric Gooden Attending Provider 1([facility])[phone] Venu Mckeon Attending Provider 1([facility])[phone] Dr. Saul Michelle MD Primary Care Provider [phone] Dr. Saul Michelle MD Referring Provider Dr. Eric Gooden MD Attending Provider 1([facility])[phone] Dr. Saul Michelle MD Attending Provider 1([facility] )[phone] Saul Michelle Primary Care Unavailable Saul Michelle Attending Unavailable Saul Michelle Referring Unavailable Saul Michelle Primary Care Unavailable Saul Michelle Attending Unavailable Saul Michelle Primary Care Unavailable Saul Michelle Attending Unavailable Saul Michelle Referring Unavailable Saul Michelle Primary Care Unavailable Eric Gooden Attending Unavailable Saul Michelle Referring Unavailable Saul Michelle Primary Care Unavailable Saul Michelle Attending Unavailable Saul Michelle Referring Unavailable Allergies Allergy Classification Reported Allergen(s) Allergy Type Date of Onset Reaction(s) Facility (6 sources) NKDA; Translations: [NKDA] allergy to substance 5 [employer] Work Phone: [phone] NEGATED: Highlighted row has been ruled out! (3 sources) Observed No Known Drug Allergies at [facility] No Known Allergies 7 propensity to adverse reactions [employer] Work Phone: [phone] Medications Current Medications Medication Drug Class(es) Dates Sig (Normalized) Sig (Original) ascorbic acid 500 mg oral capsule (6 sources) Vitamin C Start: 12-06-2018 take 1 capsule by mouth once daily Ascorbic Acid (Vitamin C) 500 mg capsule Active 500 mg PO DAILY December 06, 2018 12:00am hydroCHLOROthiazide 25 mg / valsartan 160 mg oral tablet (9 sources) Thiazide Diuretic, Angiotensin 2 Receptor Brenda Start: 01-05-2022 take 1 tablet by mouth once daily Valsartan-[place] chlorothiazide Active 1 TABLET PO DAILY January [...] 1:59pm Start: 11-07-2017 take 1 tablet by german th once daily Multivitamin Active 1 TABLET PO DAILY November 07, 2017 12:00am Multivitamin tablet (1 source) Start: 11-07-2017 Multivitamin t ablet Active 1 {tbl} PO DAILY November 07, 2017 12:00am [place]-3 Fatty Acids (Fish Oil Concentrate) 1,000 mg capsule (6 sources) Start: 10-30-2017 take 1 capsule by mouth once daily [place]-3 Fatty Acids (Fish Oil Concentrate) 1,000 mg capsule Active 1000 MG PO DAILY October 30, 2017 4:22pm Start: 10-30-2017 take 1 capsule by mo [facility] once daily [place]-3 Fatty Acids (Fish Oil Concentrate) 1,000 mg capsule Active 1000 mg PO DAILY October 30, 2017 12:00am Start: 10-30-2017 take 1 capsule by mo uth once daily [place]-3 Fatty Acids (Fish Oil Concentrate) 1,000 mg [...] TABS One tablet by mouth daily ASPIRIN [id number] Felicita Benson RN Start: 10-07-2014 take 1 tablet by german th once daily ASPIRIN EC 81 MG TBEC Take one tab by mouth daily ASPIRIN [id number] Tanya Anderson CLINICAL TRAINER Start: 09-08-2014 take 1 tablet by german [...] One tablet by mouth daily ATORVASTATIN CALCIUM [id number] Ivon Ramirez PA-C Start: 09-08-2014 End: 04-16-2017 [...] by mouth daily [place]-3 FATTY ACIDS CAPS [id number] Luis Felipe Alfred MD hydroCHLOROthiazide 25 mg [...] TABS One tablet by mouth daily HYDROCHLOROTHIAZIDE [id number] Ivon Ramirez PA-C Comment on above: Take 1 tablet by german th once daily. lisinopril 20 mg oral tablet (20 sources) Angiotensin Converting Enzyme Inhibitor Start: 0 End: take 1 tablet by mouth once daily [...] One tablet by mouth twice daily LISINOPRIL [id number] Ivon Ramirez PA-C Start: 09-08-2014 End: 11-07-2017 [...] 17, 2020 12:00am March 15, 2023 11:57am ozsfyefj-cxj-dsctu -vit K-lycop (MEN'S ONE DAILY) 400-20-300 mcg tab (4 sources) Start: 05-06-2018 zdhuydov-mtj-cbcyv-vit K-lycop (MEN'S ONE DAILY) 400-20-300 mcg tab Take by mouth. 0 05/06/2018 Active Comment on above: Take by mouth. sildenafil 100 mg oral tablet (6 sources) Phosphodiesterase 5 Inhibitor Start: 04-21-2015 End: 11-03-2016 VIAGRA 100 MG TABS one half to one tablet as needed SILDENAFIL CITRATE [id number] Ivon Ramirez PA-C traMADol hydrochloride 50 mg oral tablet (6 sources) Opioid Agonist Start: 11-26-2020 End: 01-05-2021 take 1 tablet by mouth every six hours as needed for pain Tramadol 50 mg tablet Discontinued 50 mg PO EVERY 6 HOURS as needed for pain 0 November 26, 2020 12:00am January 05, [...] Translations: [Cerebrovascular accident] Onset: 10-07-2014 10-07-2014 Chronic Diabetes mellitus without complication (1 source) Impaired glucose tolerance (oral); Translations: [Impaired glucose tolerance (oral)] Onset: 01-06-2025 Episodic Disorders of lipid metabolism (17 sources) Hyperlipidemia; Translations: [Hyperlipidemia, unspecified] Onset: 10-07-2014 10-07-2014 Chronic Essential hypertension (18 sources) Hypertensive disorder; Translations: [Essential hypertension] Onset: 10-07-2014 10-07-2014 Chronic Personality disorders (6 sources) Eccentric personality disorder; 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 Residual codes; unclassified (6 sources) Obstructive sleep apnea syndrome; Translations: [Obstructive sleep apnea (adult) (pediatric)] 10-30-2017 Chronic Thyroid disorders (2 sources) Nontoxic single thyroid nodule; Translations: [Nontoxic single thyroid nodule] Onset: 02-04-2024 Chronic Past or Other Problems Problem Classification Problem Date Documented Da te Episodic/Chronic Other aftercare (3 sources) Other care home (current) drug therapy; Translations: [Other care home (current) drug therapy] Onset: 10-07-2014 10-07-2014 Episodic Other nutritional; endocrine; and metabolic disorders (6 sources) Body mass index (BMI) 27.0-27.9, adult; Translations: [Body mass index (BMI) 25.0-25.9, adult] Onset: 11-27-2014 04-28-2016 Episodic Results Test Name Value Interpretation Reference Range Facility CBC W/Diff, Automatedon 10-3 Absolute Lymph 0.94 X10 3/uL Normal 0.83-4.51 [facility] Comment on above: Order Comment: Test( s) 870643-Lkpsyyo B6 was developed and its performance characteristics determined by [facility]. It has not been cleared or approved by the Food and Drug Administration. Performed By: #### L 3300.8000, L3300.8200, [id number] #### [facility] [address] [place], [place], [id number] Absolute Neut 4.0 X10 3/uL Normal 2.0-7.7 [facility] Comment on above: Order Comment: Test( s) 910320-Tyzkpgb B6 was developed and its performance characteristics determined by [facility]. It has not been cleared or approved by the Food and Drug Administration. Performed By: #### L 3300.8000, L3300.8200, [id number] #### [facility] [address] [place], [address] Basophils/100 WBC (Bld) 0.4 % Normal 0-1 [facility] Comment on above: Order Comment: Test( s) 577246-Efakygz B6 was developed and its performance characteristics determined by [facility]. It has not been cleared or approved by the Food and Drug Administration. Performed By: #### L 3300.8000, L3300.8200, [id number] #### [facility] [address] [place], [address] Eosinophils/100 WBC (Bld) 0.9 % Normal 0-5 [facility] Comment on above: Order Comment: Test( s) 909803-Wikjzjh B6 was developed and its performance characteristics determined by [facility]. It has not been cleared or approved by the Food and Drug Administration. Performed By: #### L 3300.8000, L3300.8200, [id number] #### [facility] [address] [place], [address] Erythrocyte distribution width (RBC) [Ratio] 12.7 % Normal 11.6-14.6 [facility] Comment on above: Order Comment: Test( s) 993608-Tncqatb B6 was developed and its performance characteristics determined by [facility]. It has not been cleared or approved by the Food and Drug Administration. Performed By: #### L 3300.8000, [id number], [id number] #### [facility] [address] [place], [address] Hematocrit (Bld) [Volume fraction] 40.6 % Normal 40-54 [facility] Comment on above: Order Comment: Test( s) 626048-Vghabkl B6 was developed and its performance characteristics determined by [facility]. It has not been cleared or approved by the Food and Drug Administration. Performed By: #### L 3300.8000, [id number], [id number] #### [facility] [address] [place], [address] Hemoglobin (Bld) [Mass/Vol] 14.1 g/dL Normal 13.0-16.5 [facility] Comment on above: Order Comment: Test( s) 514497-Mlfwrcp B6 was developed and its performance characteristics determined by [facility]. It has not been cleared or approved by the Food and Drug Administration. Performed By: #### L 3300.8000, [id number], [id number] #### [facility] [address] [place], [address] IG% 0.200 Normal 0.0-0.9 [facility] Comment on above: Order Comment: Test( s) 200193-Knuldss B6 was developed and its performance characteristics determined by [facility]. It has not been cleared or approved by the Food and Drug Administration. Result Comment: IG% - Immature Granulocytes (promyelocytes, myelocytes and metamyelocytes) > 1% indicates that a LEFT SHIFT is Present. Performed By: #### L 3300.8000, [id number], [id number] #### [facility] [address] [place], [address] Lymphocytes/100 WBC (Bld) 17.4 % Low 19-41 [facility] Comment on above: Order Comment: Test( s) 332567-Vfwctny B6 was developed and its performance characteristics determined by [facility]. It has not been cleared or approved by the Food and Drug Administration. Performed By: #### L 3300.8000, [id number], [id number] #### [facility] [address] [place], [address] MCH (RBC) [Entitic mass] 30.7 pg Normal 27.0-32.0 [facility] Comment on above: Order Comment: Test( s) 938874-Tcbpvyn B6 was developed and its performance characteristics determined by [facility]. It has not been cleared or approved by the Food and Drug Administration. Performed By: #### L 3300.8000, [id number], [id number] #### [facility] [address] [place], [address] MCHC (RBC) [Mass/Vol] 34.7 g/dL Normal 32-36 [facility] Comment on above: Order Comment: Test( s) 485931-Kysxewn B6 was developed and its performance characteristics determined by [facility]. It has not been cleared or approved by the Food and Drug Administration. Performed By: #### L 3300.8000, [id number], [id number] #### [facility] [address] [place], [address] MCV (RBC) [Entitic vol] 88.3 fL Normal 80-94 [facility] Comment on above: Order Comment: Test( s) 114809-Xbxwjwn B6 was developed and its performance characteristics determined by [facility]. It has not been cleared or approved by the Food and Drug Administration. Performed By: #### L 3300.8000, [id number], [id number] #### [facility] [address] [place], [address] Monocytes/100 WBC (Bld) 6.9 % Normal 0-10 [facility] Comment on above: Order Comment: Test( s) 541006-Kngqhvu B6 was developed and its performance characteristics determined by [facility]. It has not been cleared or approved by the Food and Drug Administration. Performed By: #### L 3300.8000, [id number], [id number] #### [facility] [address] [place], [address] Neutrophils/100 WBC (Bld) 74.2 % High 47-70 [facility] Comment on above: Order Comment: Test( s) 690910-Hatuezu B6 was developed and its performance characteristics determined by [facility]. It has not been cleared or approved by the Food and Drug Administration. Performed By: #### L 3300.8000, [id number], [id number] #### [facility] [address] [place], [address] Nucleated RBC (Bld) [#/Vol] 0 10*3/uL Normal 0-5 [facility] Comment on above: Order Comment: Test( s) 540134-Oekbdnu B6 was developed and its performance characteristics determined by [facility]. It has not been cleared or approved by the Food and Drug Administration. Performed By: #### L 3300.8000, [id number], [id number] #### [facility] [address] [place], [address] Platelet mean volume (Bld) [Entitic vol] 11.3 fL Normal 6.2-12.0 [facility] Comment on above: Order Comment: Test( s) 169446-Hdzmtbd B6 was developed and its performance characteristics determined by [facility]. It has not been cleared or approved by the Food and Drug Administration. Performed By: #### L 3300.8000, [id number], [id number] #### [facility] [address] [place], [address] Platelets (Bld) [#/Vol] 204 10*3/uL Normal 150-450 [facility] Comment on above: Order Comment: Test( s) 961093-Owvdkre B6 was developed and its performance characteristics determined by [facility]. It has not been cleared or approved by the Food and Drug Administration. Performed By: #### L 3300.8000, [id number], [id number] #### [facility] [address] [place], [address] RBC (Bld) [#/Vol] 4.60 10*6/uL Normal 4.6-6.2 [facility] Comment on above: Order Comment: Test( s) 114638-Xwmdnoi B6 was developed and its performance characteristics determined by [facility]. It has not been cleared or approved by the Food and Drug Administration. Performed By: #### L 3300.8000, [id number], [id number] #### [facility] [address] [place], [address] RDW SD 41.2 fl Normal 35.1-43.9 [facility] Comment on above: Order Comment: Test( s) 633334-Rcegvgk B6 was developed and its performance characteristics determined by [facility]. It has not been cleared or approved by the Food and Drug Administration. Performed By: #### L 3300.8000, [id number], [id number] #### [facility] [address] [place], [address] WBC (Bld) [#/Vol] 5.4 10*3/uL Normal 4.4-11.0 [facility] Comment on above: Order Comment: Test( s) 203469-Nqzbwvo B6 was developed and its performance characteristics determined by [facility]. It has not been cleared or approved by the Food and Drug Administration. Performed By: #### L 3300.8000, [id number], [id number] #### [facility] [address] [place], [address] Comprehensive Metabolic Prof ilon 01-01-2025 Albumin [Mass/Vol] 4.1 g/dL Normal 3.4-4.8 [facility] Comment on above: Order Comment: Test( s) 080327-Plsrkjx B6 was developed and its performance characteristics determined by [facility]. It has not been cleared or approved by the Food and Drug Administration. Performed By: #### L 3300.8000, [id number], [id number] #### [facility] [address] [place], [address] Albumin/Globulin [Mass ratio] 1.4 {ratio} Normal 0.9-2.4 [facility] Comment on above: Order Comment: Test( s) 322848-Taquifz B6 was developed and its performance characteristics determined by [facility]. It has not been cleared or approved by the Food and Drug Administration. Performed By: #### L 3300.8000, [id number], [id number] #### [facility] [address] [place], [address] ALK PHOS 99 U/L Normal 40-129 [facility] Comment on above: Order Comment: Test( s) 229273-Hazocsm B6 was developed and its performance characteristics determined by [facility]. It has not been cleared or approved by the Food and Drug Administration. Performed By: #### L 3300.8000, [id number], [id number] #### [facility] [address] [place], [address] ALT [Catalytic activity/Vol] 29 U/L Normal <=46 [facility] Comment on above: Order Comment: Test( s) 574574-Eovaiok B6 was developed and its performance characteristics determined by [facility]. It has not been cleared or approved by the Food and Drug Administration. Performed By: #### L 3300.8000, [id number], [id number] #### [facility] [address] [place], [address] AST [Catalytic activity/Vol] 31 U/L Normal <=37 [facility] Comment on above: Order Comment: Test( s) 629455-Zdsaqkc B6 was developed and its performance characteristics determined by [facility]. It has not been cleared or approved by the Food and Drug Administration. Performed By: #### L 3300.8000, [id number], [id number] #### [facility] [address] [place], [address] Bilirubin [Mass/Vol] 1.17 mg/dL Normal 0.00-1.30 [facility] Comment on above: Order Comment: Test( s) 771100-Qaeebsk B6 was developed and its performance characteristics determined by [facility]. It has not been cleared or approved by the Food and Drug Administration. Performed By: #### L 3300.8000, [id number], [id number] #### [facility] [address] [place], [address] BUN/CRE 17.2 RATIO Normal 10-20 [facility] Comment on above: Order Comment: Test( s) 522619-Hqdiauz B6 was developed and its performance characteristics determined by [facility]. It has not been cleared or approved by the Food and Drug Administration. Performed By: #### L 3300.8000, [id number], [id number] #### [facility] [address] [place], [address] Calcium [Mass/Vol] 9.4 mg/dL Normal 7.6-11.0 [facility] Comment on above: Order Comment: Test( s) 328736-Wukskzp B6 was developed and its performance characteristics determined by [facility]. It has not been cleared or approved by the Food and Drug Administration. Performed By: #### L 3300.8000, [id number], [id number] #### [facility] [address] [place], [address] Chloride [Moles/Vol] 101 mmol/L Normal 98-108 [facility] Comment on above: Order Comment: Test( s) 881594-Wltdrjt B6 was developed and its performance characteristics determined by [facility]. It has not been cleared or approved by the Food and Drug Administration. Performed By: #### L 3300.8000, [id number], [id number] #### [facility] [address] [place], [address] CO2 [Moles/Vol] 26.5 mmol/L Normal 21.0-32.0 [facility] Comment on above: Order Comment: Test( s) 297839-Tqssuly B6 was developed and its performance characteristics determined by [facility]. It has not been cleared or approved by the Food and Drug Administration. Performed By: #### L 3300.8000, [id number], [id number] #### [facility] [address] [place], [address] Creatinine [Mass/Vol] 0.98 mg/dL Normal 0.70-1.20 [facility] Comment on above: Order Comment: Test( s) 613724-Rvovcdl B6 was developed and its performance characteristics determined by [facility]. It has not been cleared or approved by the Food and Drug Administration. Performed By: #### L 3300.8000, [id number], [id number] #### [facility] [address] [place], [address] GAP 10 Normal 5-15 [facility] Comment on above: Order Comment: Test( s) 692655-Bjgpotj B6 was developed and its performance characteristics determined by [facility]. It has not been cleared or approved by the Food and Drug Administration. Performed By: #### L 3300.8000, [id number], [id number] #### [facility] [address] [place], [address] GFR/1.73 sq M.predicted among non-blacks MDRD (S/P/Bld) [Vol rate/Area] 82 mL/min/{1.73_m2} Normal >60 [facility] Comment on above: Order Comment: Test( s) 536472-Tdrgelz B6 was developed and its performance characteristics determined by [facility]. It has not been cleared or approved by the Food and Drug Administration. Result Comment: mL/m in/1.73m2 CKD-EPI Creatinine Equation (2020) Performed By: #### L 3300.8000, [id number], [id number] #### [facility] [address] [place], [address] Globulin (S) [Mass/Vol] 2.9 g/dL Normal 2.2-4.2 [facility] Comment on above: Order Comment: Test( s) 759472-Unohrgc B6 was developed and its performance characteristics determined by [facility]. It has not been cleared or approved by the Food and Drug Administration. Performed By: #### L 3300.8000, [id number], [id number] #### [facility] [address] [place], [address] Glucose [Mass/Vol] 117 mg/dL High 70-99 [facility] Comment on above: Order Comment: Test( s) 652597-Sczjxuo B6 was developed and its performance characteristics determined by [facility]. It has not been cleared or approved by the Food and Drug Administration. Performed By: #### L 3300.8000, [id number], [id number] #### [facility] [address] [place], [address] Potassium [Moles/Vol] 3.9 mmol/L Normal 3.3-5.1 [facility] Comment on above: Order Comment: Test( s) 858697-Kexmnvo B6 was developed and its performance characteristics determined by [facility]. It has not been cleared or approved by the Food and Drug Administration. Performed By: #### L 3300.8000, [id number], [id number] #### [facility] [address] [place], [address] Sodium [Moles/Vol] 137 mmol/L Normal 133-145 [facility] Comment on above: Order Comment: Test( s) 767555-Xpgrcsz B6 was developed and its performance characteristics determined by [facility]. It has not been cleared or approved by the Food and Drug Administration. Performed By: #### L 3300.8000, [id number], [id number] #### [facility] [address] [place], [address] T PROT 7.0 g/dL Normal 5.9-8.4 [facility] Comment on above: Order Comment: Test( s) 900960-Dfismuz B6 was developed and its performance characteristics determined by [facility]. It has not been cleared or approved by the Food and Drug Administration. Performed By: #### L 3300.8000, [id number], [id number] #### [facility] [address] [place], [address] Urea nitrogen [Mass/Vol] 17 mg/dL Normal 4-19 [facility] Comment on above: Order Comment: Test( s) 260708-Zemmnwa B6 was developed and its performance characteristics determined by [facility]. It has not been cleared or approved by the Food and Drug Administration. Performed By: #### L 3300.8000, [id number], [id number] #### [facility] [address] [place], [address] Hemoglobin A1con 01-01-2025 HbA1c (Bld) [Mass fraction] 5.9 % High <=5.6 [facility] Comment on above: Order Comment: Test( s) 809530-Nczwfay B6 was developed and its performance characteristics determined by [facility]. It has not been cleared or approved by the Food and Drug Administration. Result Comment: Norm al < 5.7 % Prediabetic 5.7 - 6.4 % Diabetic >or= 6.5 % Please note range changes. Performed By: #### L 3300.8000, [id number], [id number] #### [facility] [address], [address] Lipid Profileon 01-01-2025 CHOL:HDL 2.69 Normal [facility] Comment on above: Order Comment: Test( s) 752419-Orsawtl B6 was developed and its performance characteristics determined by [facility]. It has not been cleared or approved by the Food and Drug Administration. Performed By: #### L 3300.8000, [id number], [id number] #### [facility] [address] [place], [address] Cholesterol [Mass/Vol] 116 mg/dL Normal <=200 [facility] Comment on above: Order Comment: Test( s) 635868-Scdrciq B6 was developed and its performance characteristics determined by [facility]. It has not been cleared or approved by the Food and Drug Administration. Result Comment: Chol esterol level, Desirable <200 mg/dL Borderline high cholesterol 200-239 mg/dL High cholesterol >=240 mg/dL Recommendations of the NCEP Adult Treatment Panel for the following risk-cutoff thresholds for the [place] population. Performed By: #### L 3300.8000, L3300.8200, L400.0001 #### [facility] [address] [place], [address] Cholesterol in HDL [Mass/Vol] 43 mg/dL Normal [facility] Comment on above: Order Comment: Test( s) 203705-Dmtqiaw B6 was developed and its performance characteristics [...] By: #### L 3300.8000, L3300.8200, L400.0001 #### [facility] [address] [place], [address] Cholesterol in LDL [Mass/Vol] 55 mg/dL Normal [facility] Comment on above: Order Comment: Test( s) 475675-Wjuzgab B6 was developed and its performance characteristics determined by [facility]. It has not been cleared or approved by the Food and Drug Administration. Result Comment: Bord sunhrs=123-171 mg/dL Higher Zrgq=764 mg/dL or greater Osuna Equation 2020 for LDL-C Performed By: #### L 3300.8000, L3300.8200, L400.0001 #### [facility] [address] [place], [address] Cholesterol in VLDL [Mass/Vol] 19 mg/dL Normal 5-40 [facility] Comment on above: Order Comment: Test( s) 555581-Xyppozz B6 was developed and its performance characteristics determined by [facility]. It has not been cleared or approved by the Food and Drug Administration. Performed By: #### L 3300.8000, L3300.8200, L400.0001 #### [facility] [address] [place], [address] Triglyceride [Mass/Vol] 93 mg/dL Normal [facility] Comment on above: Order Comment: Test( s) 910393-Rngynss B6 was developed and its performance characteristics determined by [facility]. It has not been cleared or approved by the Food and Drug Administration. Result Comment: The drugs N-Acetylcysteine and Metamizole may falsely depress this assay. Normal range: <150 mg/dL Borderline High: 150-199 mg/dL High: 200-499 mg/dL Very High: >500 mg/dL Performed By: #### L 3300.8000, L3300.8200, L400.0001 #### [facility] [address] [place], [address] Urinalysis, Completeon 01-01 BACTERIA 1+ /hpf Normal None Seen [facility] Comment on above: Order Comment: Test( s) 495927-Jwkryuw B6 was developed and its performance characteristics determined by [facility]. It has not been cleared or approved by the Food and Drug Administration. Performed By: #### L 3300.8000, L3300.8200, L400.0001 #### [facility] [address] [place], [address] EPI,SQUAMOUS 0-5 SEEN Normal 0-5 [facility] Comment on above: Order Comment: Test( s) 296955-Uxyzvtk B6 was developed and its performance characteristics determined by [facility]. It has not been cleared or approved by the Food and Drug Administration. Performed By: #### L 3300.8000, L3300.8200, L400.0001 #### [facility] [address] [place], [address] Mucus Ql (Urine sed) 1+ /hpf Normal [facility] Comment on above: Order Comment: Test( s) 890227-Syssvnc B6 was developed and its performance characteristics determined by [facility]. It has not been cleared or approved by the Food and Drug Administration. Performed By: #### L 3300.8000, L3300.8200, L400.0001 #### [facility] [address] [place], [address] RBC 0-5 SEEN Normal 0-5 [facility] Comment on above: Order Comment: Test( s) 297877-Dxsuulx B6 was developed and its performance characteristics determined by [facility]. It has not been cleared or approved by the Food and Drug Administration. Performed By: #### L 3300.8000, L3300.8200, L400.0001 #### [facility] [address] [place], [address] WBC 0 SEEN Normal 0-5 [facility] Comment on above: Order Comment: Test( s) 355825-Nellsrn B6 was developed and its performance characteristics determined by [facility]. It has not been cleared or approved by the Food and Drug Administration. Performed By: #### L 3300.8000, L3300.8200, L400.0001 #### [facility] [address] [place], [address] Vitamin B12on 01-01-2025 Cobalamin (Vitamin B12) [Mass/Vol] 560 pg/mL Normal 180-914 [facility] Comment on above: Order Comment: Test( s) 080734-Vgwdhvm B6 was developed and its performance characteristics determined by [facility]. It has not been cleared or approved by the Food and Drug Administration. Performed By: #### L 3300.8000, L3300.8200, L400.0001 #### [facility] [address] [place], [address] L3300.8200on 09-01-2024 VITAMIN B6 31.4 ug/L Normal 3.4-65.2 [facility] Comment on above: Order Comment: Test( s) 889007-Ecykzkx B6 was developed and its performance characteristics determined by [facility]. It has not been cleared or approved by the Food and Drug Administration. Result Comment: Defi ciency: <3.4 Marginal: 3.4 - 5.1 Adequate: >5.1 Performed By: #### L 3300.8000, L3300.8200, L400.0001 #### [facility] [address] [place], [address] Vitamin B1, Thiamineon 09-01 VIT B1 THIAMINE 145.7 nmol/L Normal 66.5-200.0 [facility] Comment on above: Order Comment: Test( s) 873465-Iiqsstj B6 was developed and its performance characteristics determined by [facility]. It has not been cleared or approved by the Food and Drug Administration. Result Comment: Perf ormed at: - [facility] [address], [place], [place] [id number] Hotel Night Auditor: Georgie Cancino MD, Phone: [phone] Performed By: #### L 3300.8000, L3300.8200, L400.0001 #### [facility] [address] [place], [address] Absolute lymphocyte countOrd ered By: Saul Michelle on 08-28-2024 Lymphocytes Auto (Unsp spec) [#/Vol] 1.01 10*3/uL 0.83-4.51 [facility] Absolute neutrophil countOrd ered By: Saul Michelle on 08-28-2024 Neutrophils (Bld) [#/Vol] 4.3 10*3/uL 2.0-7.7 [facility] Anion gap in Serum or Plasma Ordered By: Saul Michelle on 08-28-2024 Anion gap [Moles/Vol] 12 mmol/L 5-15 [facility] Automated lymphocyte count a s percentage of total leukocytesOrdered By: Saul Michelle on 08-28-2024 Lymphocytes/100 WBC Auto (Unsp spec) 17.5 % Low 19-41 [facility] BUN/creatinine ratioOrdered By: Saul Michelle on 08-28-2024 Urea nitrogen/Creatinine [Mass ratio] 20.7 mg/mg High 10-20 [facility] Basophil percentageOrdered B y: Saul Michelle on 08-28-2024 Basophils/100 WBC (Bld) 0.5 % 0-1 [facility] Bilirubin Test strip Ql (U)O rdered By: Saul Michelle on 08-28-2024 Bilirubin Ql (U) Negative Negative [facility] Bilirubin, totalOrdered By: Saul Michelle on 08-28-2024 Bilirubin [Mass/Vol] 1.37 mg/dL High 0.00-1.30 [facility] CBC W/Diff, Automatedon 08-04 Absolute Lymph 1.01 X10 3/uL Normal 0.83-4.51 [facility] Comment on above: Order Comment: Order Date: 05/01/24 Order Info: 0184-1 - CBCD Performed By: #### L 500.4100, L501.9985, L500.4050, L100.0100 #### [facility] [address] [place], [address] Absolute Neut 4.3 X10 3/uL Normal 2.0-7.7 [facility] Comment on above: Order Comment: Order Date: 05/01/24 Order Info: 0184-1 - CBCD Performed By: #### L 500.4100, L501.9985, L500.4050, L100.0100 #### [facility] [address] [place], [address] Basophils/100 WBC (Bld) 0.5 % Normal 0-1 [facility] Comment on above: Order Comment: Order Date: 05/01/24 Order Info: 0184-1 - CBCD Performed By: #### L 500.4100, L501.9985, L500.4050, L100.0100 #### [facility] [address] [place], [address] Eosinophils/100 WBC (Bld) 0.5 % Normal 0-5 [facility] Comment on above: Order Comment: Order Date: 05/01/24 Order Info: 0184-1 - CBCD Performed By: #### L 500.4100, L501.9985, L500.4050, L100.0100 #### [facility] [address] [place], [address] Erythrocyte distribution width (RBC) [Ratio] 12.8 % Normal 11.6-14.6 [facility] Comment on above: Order Comment: Order Date: 05/01/24 Order Info: 0184-1 - CBCD Performed By: #### L 500.4100, L501.9985, L500.4050, L100.0100 #### [facility] [address] [place], [address] Hematocrit (Bld) [Volume fraction] 41.0 % Normal 40-54 [facility] Comment on above: Order Comment: Order Date: 05/01/24 Order Info: 0184-1 - CBCD Performed By: #### L 500.4100, L501.9985, L500.4050, L100.0100 #### [facility] [address] [place], [address] Hemoglobin (Bld) [Mass/Vol] 13.9 g/dL Normal 13.0-16.5 [facility] Comment on above: Order Comment: Order Date: 05/01/24 Order Info: 0184-1 - CBCD Performed By: #### L 500.4100, L501.9985, L500.4050, L100.0100 #### [facility] [address] [place], [address] IG% 0.200 Normal 0.0-0.9 [facility] Comment on above: Order Comment: Order Date: 05/01/24 Order Info: 0184-1 - CBCD Result Comment: IG% - Immature Granulocytes (promyelocytes, myelocytes and metamyelocytes) > 1% indicates that a LEFT SHIFT is Present. Performed By: #### L 500.4100, L501.9985, L500.4050, L100.0100 #### [facility] [address] [place], [address] Lymphocytes/100 WBC (Bld) 17.5 % Low 19-41 [facility] Comment on above: Order Comment: Order Date: 05/01/24 Order Info: 0184-1 - CBCD Performed By: #### L 500.4100, L501.9985, L500.4050, L100.0100 #### [facility] [address] [place], [address] MCH (RBC) [Entitic mass] 30.3 pg Normal 27.0-32.0 [facility] Comment on above: Order Comment: Order Date: 05/01/24 Order Info: 0184-1 - CBCD Performed By: #### L 500.4100, L501.9985, L500.4050, L100.0100 #### [facility] [address] [place], [address] MCHC (RBC) [Mass/Vol] 33.9 g/dL Normal 32-36 [facility] Comment on above: Order Comment: Order Date: 05/01/24 Order Info: 0184-1 - CBCD Performed By: #### L 500.4100, L501.9985, L500.4050, L100.0100 #### [facility] [address] [place], [address] MCV (RBC) [Entitic vol] 89.3 fL Normal 80-94 [facility] Comment on above: Order Comment: Order Date: 05/01/24 Order Info: 0184-1 - CBCD Performed By: #### L 500.4100, L501.9985, L500.4050, L100.0100 #### [facility] [address] [place], [address] Monocytes/100 WBC (Bld) 6.3 % Normal 0-10 [facility] Comment on above: Order Comment: Order Date: 05/01/24 Order Info: 0184-1 - CBCD Performed By: #### L 500.4100, L501.9985, L500.4050, L100.0100 #### [facility] [address] [place], [address] Neutrophils/100 WBC (Bld) 75.0 % High 47-70 [facility] Comment on above: Order Comment: Order Date: 05/01/24 Order Info: 0184-1 - CBCD Performed By: #### L 500.4100, L501.9985, L500.4050, L100.0100 #### [facility] [address] [place], [address] Nucleated RBC (Bld) [#/Vol] 0 10*3/uL Normal 0-5 [facility] Comment on above: Order Comment: Order Date: 05/01/24 Order Info: 0184-1 - CBCD Performed By: #### L 500.4100, L501.9985, L500.4050, L100.0100 #### [facility] [address] [place], [address] Platelet mean volume (Bld) [Entitic vol] 11.5 fL Normal 6.2-12.0 [facility] Comment on above: Order Comment: Order Date: 05/01/24 Order Info: 0184-1 - CBCD Performed By: #### L 500.4100, L501.9985, L500.4050, L100.0100 #### [facility] [address] [place], [address] Platelets (Bld) [#/Vol] 204 10*3/uL Normal 150-450 [facility] Comment on above: Order Comment: Order Date: 05/01/24 Order Info: 0184-1 - CBCD Performed By: #### L 500.4100, L501.9985, L500.4050, L100.0100 #### [facility] [address] [place], [address] RBC (Bld) [#/Vol] 4.59 10*6/uL Low 4.6-6.2 [facility] Comment on above: Order Comment: Order Date: 05/01/24 Order Info: 0184-1 - CBCD Performed By: #### L 500.4100, L501.9985, L500.4050, L100.0100 #### [facility] [address] [place], [address] RDW SD 41.9 fl Normal 35.1-43.9 [facility] Comment on above: Order Comment: Order Date: 05/01/24 Order Info: 0184-1 - CBCD Performed By: #### L 500.4100, L501.9985, L500.4050, L100.0100 #### [facility] [address] [place], [address] WBC (Bld) [#/Vol] 5.8 10*3/uL Normal 4.4-11.0 [facility] Comment on above: Order Comment: Order Date: 05/01/24 Order Info: 0184-1 - CBCD Performed By: #### L 500.4100, L501.9985, L500.4050, L100.0100 #### [facility] [address] [facility] [place], [place], [address] Calculated very low density lipoprotein (VLDL) cholesterol measurementOrdered By: Saul Michelle on 08-28-2024 Calculated very low density lipoprotein (VLDL) cholesterol measurement 22 mg/dL 5-40 [facility] Carbon dioxide, total [Moles /volume] in Central venous bloodOrdered By: Saul Michelle on 08-28-2024 CO2 [Moles/Vol] 24.9 mmol/L 21.0-32.0 [facility] Chloride assayOrdered By: Nicolasa Michelle on 08-28-2024 Chloride [Moles/Vol] 101 mmol/L 98-108 [facility] Comprehensive Metabolic Prof ilon 08-28-2024 Albumin [Mass/Vol] 4.2 g/dL Normal 3.4-4.8 [facility] Comment on above: Order Comment: Order Date: 05/01/24 Order Info: [id number] - CMP Order Info: [id number] - LIPID Performed By: #### L 500.4100, L501.9985, L500.4050, L100.0100 #### [facility] [address] [place], [place], [address] Albumin/Globulin [Mass ratio] 1.4 {ratio} Normal 0.9-2.4 [facility] Comment on above: Order Comment: Order Date: 05/01/24 Order Info: [id number] - CMP Order Info: [id number] - LIPID Performed By: #### L 500.4100, L501.9985, L500.4050, L100.0100 #### [facility] [address] [place], [address] ALK PHOS 99 U/L Normal 40-129 [facility] Comment on above: Order Comment: Order Date: 05/01/24 Order Info: [id number] - CMP Order Info: [id number] - LIPID Performed By: #### L 500.4100, L501.9985, L500.4050, L100.0100 #### [facility] [address] [place], [address] ALT [Catalytic activity/Vol] 27 U/L Normal <=46 [facility] Comment on above: Order Comment: Order Date: 05/01/24 Order Info: 0786- - CMP Order Info: [id number] - LIPID Performed By: #### L 500.4100, L501.9985, L500.4050, L100.0100 #### [facility] [address] [place], [address] AST [Catalytic activity/Vol] 28 U/L Normal <=37 [facility] Comment on above: Order Comment: Order Date: 05/01/24 Order Info: 0786- - CMP Order Info: [id number] - LIPID Performed By: #### L 500.4100, L501.9985, L500.4050, L100.0100 #### [facility] [address] [place], [address] Bilirubin [Mass/Vol] 1.37 mg/dL High 0.00-1.30 [facility] Comment on above: Order Comment: Order Date: 05/01/24 Order Info: [id number] - CMP Order Info: [id number] - LIPID Performed By: #### L 500.4100, L501.9985, L500.4050, L100.0100 #### [facility] [address] [place], [address] BUN/CRE 20.7 RATIO High 10-20 [facility] Comment on above: Order Comment: Order Date: 05/01/24 Order Info: [id number] - CMP Order Info: [id number] - LIPID Performed By: #### L 500.4100, L501.9985, L500.4050, L100.0100 #### [facility] [address] [place], [address] Calcium [Mass/Vol] 9.6 mg/dL Normal 7.6-11.0 [facility] Comment on above: Order Comment: Order Date: 05/01/24 Order Info: 0786- - CMP Order Info: [id number] - LIPID Performed By: #### L 500.4100, L501.9985, L500.4050, L100.0100 #### [facility] [address] [place], [address] Chloride [Moles/Vol] 101 mmol/L Normal 98-108 [facility] Comment on above: Order Comment: Order Date: 05/01/24 Order Info: 0786- - CMP Order Info: [id number] - LIPID Performed By: #### L 500.4100, L501.9985, L500.4050, L100.0100 #### [facility] [address] [place], [address] CO2 [Moles/Vol] 24.9 mmol/L Normal 21.0-32.0 [facility] Comment on above: Order Comment: Order Date: 05/01/24 Order Info: [id number] - CMP Order Info: [id number] - LIPID Performed By: #### L 500.4100, L501.9985, L500.4050, L100.0100 #### [facility] [address] [place], [address] Creatinine [Mass/Vol] 1.00 mg/dL Normal 0.70-1.20 [facility] Comment on above: Order Comment: Order Date: 05/01/24 Order Info: [id number] - CMP Order Info: [id number] - LIPID Performed By: #### L 500.4100, L501.9985, L500.4050, L100.0100 #### [facility] [address] [place], [address] GAP 12 Normal 5-15 [facility] Comment on above: Order Comment: Order Date: 05/01/24 Order Info: 0786- - CMP Order Info: [id number] - LIPID Performed By: #### L 500.4100, L501.9985, L500.4050, L100.0100 #### [facility] [address] [place], [address] GFR/1.73 sq M.predicted among non-blacks MDRD (S/P/Bld) [Vol rate/Area] 79 mL/min/{1.73_m2} Normal >60 [facility] Comment on above: Order Comment: Order Date: 05/01/24 Order Info: 0786- - CMP Order Info: [id number] - LIPID Result Comment: mL/m in/1.73m2 CKD-EPI Creatinine Equation (2020) Performed By: #### L 500.4100, L501.9985, L500.4050, L100.0100 #### [facility] [address] [place], [address] Globulin (S) [Mass/Vol] 3.0 g/dL Normal 2.2-4.2 [facility] Comment on above: Order Comment: Order Date: 05/01/24 Order Info: [id number] - CMP Order Info: [id number] - LIPID Performed By: #### L 500.4100, L501.9985, L500.4050, L100.0100 #### [facility] [address] [place], [address] Glucose [Mass/Vol] 105 mg/dL High 70-99 [facility] Comment on above: Order Comment: Order Date: 05/01/24 Order Info: [id number] - CMP Order Info: [id number] - LIPID Performed By: #### L 500.4100, L501.9985, L500.4050, L100.0100 #### [facility] [address] [place], [address] Potassium [Moles/Vol] 3.6 mmol/L Normal 3.3-5.1 [facility] Comment on above: Order Comment: Order Date: 05/01/24 Order Info: [id number] - CMP Order Info: [id number] - LIPID Performed By: #### L 500.4100, L501.9985, L500.4050, L100.0100 #### [facility] [address] [place], [address] Sodium [Moles/Vol] 138 mmol/L Normal 133-145 [facility] Comment on above: Order Comment: Order Date: 05/01/24 Order Info: [id number] - CMP Order Info: [id number] - LIPID Performed By: #### L 500.4100, L501.9985, L500.4050, L100.0100 #### [facility] [address] [place], [address] T PROT 7.2 g/dL Normal 5.9-8.4 [facility] Comment on above: Order Comment: Order Date: 05/01/24 Order Info: [id number] - CMP Order Info: [id number] - LIPID Performed By: #### L 500.4100, L501.9985, L500.4050, L100.0100 #### [facility] [address] [place], [address] Urea nitrogen [Mass/Vol] 21 mg/dL High 4-19 [facility] Comment on above: Order Comment: Order Date: 05/01/24 Order Info: [id number] - CMP Order Info: [id number] - LIPID Performed By: #### L 500.4100, L501.9985, L500.4050, L100.0100 #### [facility] [address] [place], [place], [address] Eosinophil percentageOrdered By: Saul Michelle on 08-28-2024 Eosinophils/100 WBC (Bld) 0.5 % 0-5 [facility] Erythrocyte distribution wid th ratioOrdered By: Saul Michelle on 08-28-2024 Erythrocyte distribution width (RBC) [Ratio] 12.8 % 11.6-14.6 [facility] Erythrocyte distribution wid th standard deviationOrdered By: Saul Michelle on 08-28-2024 Erythrocyte distribution width (RBC) [Ratio] 41.9 fl 35.1-43.9 [facility] Glomerular filtration rate ( GFR) estimation/1.73 sq m using serum, plasma, or whole bOrdered By: Saul Michelle on 08-28-2024 GFR/1.73 sq M.predicted among non-blacks MDRD (S/P/Bld) [Vol rate/Area] 79 mL/min/{1.73_m2} >60 [facility] Comment on above: mL/min/1.73m2 CKD-EP I Creatinine Equation (2020) Hematocrit Auto (Bld) [Volum e fraction]Ordered By: Saul Michelle on 08-28-2024 Hematocrit (Bld) [Volume fraction] 41.0 % 40-54 [facility] Hemoglobin A1con 08-28-2024 HbA1c (Bld) [Mass fraction] 6.0 % High <=5.6 [facility] Comment on above: Order Comment: Order Date: 05/01/24 Order Info: [id number] - A1C Result Comment: Norm al < 5.7 % Prediabetic 5.7 - 6.4 % Diabetic >or= 6.5 % Please note range changes. Performed By: #### L 500.4100, L501.9985, L500.4050, L100.0100 #### [facility] [address] [place], [place], [id number] Hemoglobin A1c percentageOrd ered By: Saul Michelle on 08-28-2024 HbA1c (Bld) [Mass fraction] 6.0 % High <5.7 [facility] Comment on above: Normal < 5.7 % Predi abetic 5.7 - 6.4 % Diabetic >or= 6.5 % Please note range changes. Hemoglobin measurementOrdere d By: Saul Michelle on 08-28-2024 Hemoglobin (Bld) [Mass/Vol] 13.9 g/dL 13.0-16.5 [facility] Immature granulocytes/100 WB C Auto (Bld)Ordered By: Saul Michelle on 08-28-2024 Immature granulocytes/100 WBC (Bld) 0.200 % 0.0-0.9 [facility] Comment on above: IG% - Immature Granu locytes (promyelocytes, myelocytes and metamyelocytes) > 1% indicates that a LEFT SHIFT is Present. Ketones Test strip Ql (U)Ord ered By: Saul Michelle on 08-28-2024 Ketones Ql (U) Negative Negative [facility] LDL calc ser/plasOrdered By: Saul Michelle on 08-28-2024 Cholesterol in LDL [Mass/Vol] 77 mg/dL [facility] Comment on above: Foodmrylbb=404-291 m g/dL & Higher Lwos=173 mg/dL or greater Laboratory - Chemistry and C hemistry - challengeOrdered By: Saul Michelle on 08-28-2024 AST [Catalytic activity/Vol] 28 U/L <38 [facility] Lipid Profileon 08-28-2024 CHOL:HDL 3.24 Normal [facility] Comment on above: Order Comment: Order Date: 05/01/24 Order Info: [id number] - CMP Order Info: [id number] - LIPID Performed By: #### L 500.4100, L501.9946, L500.4050, L100.0100 #### [facility] [address] [place], [address] Cholesterol [Mass/Vol] 144 mg/dL Normal <=200 [facility] Comment on above: Order Comment: Order Date: 05/01/24 Order Info: [id number] - CMP Order Info: [id number] - LIPID Result Comment: Chol esterol level, Desirable <200 mg/dL Borderline high cholesterol 200-239 mg/dL High cholesterol >=240 mg/dL Recommendations of the NCEP Adult Treatment Panel for the following risk-cutoff thresholds for the [place] population. Performed By: #### L 500.4100, L501.9985, L500.4050, L100.0100 #### [facility] [address] [place], [address] Cholesterol in HDL [Mass/Vol] 45 mg/dL Normal [facility] Comment on above: Order Comment: Order Date: 05/01/24 Order Info: [id number] - CMP Order Info: [id number] - LIPID Result Comment: Amelie onal Cholesterol Education Program (NCEP) guidelines: <40 mg/dL: Low HDL-cholesterol (major risk factor for CHD) >= 60 mg/dL: High HDL-cholesterol (negative risk factor for CHD) HDL-cholesterol is affected by a number of factors, e.g. smoking, exercise, hormones, sex and age. Performed By: #### L 500.4100, L501.9985, L500.4050, L100.0100 #### [facility] [address] [place], [address] Cholesterol in LDL [Mass/Vol] 77 mg/dL Normal [facility] Comment on above: Order Comment: Order Date: 05/01/24 Order Info: 0786-1 - CMP Order Info: [id number] - LIPID Result Comment: Bord ffdipq=487-521 mg/dL Higher Zquk=582 mg/dL or greater Performed By: #### L 500.4100, L501.9985, L500.4050, L100.0100 #### [facility] [address] [place], [address] Cholesterol in VLDL [Mass/Vol] 22 mg/dL Normal 5-40 [facility] Comment on above: Order Comment: Order Date: 05/01/24 Order Info: [id number] - CMP Order Info: [id number] - LIPID Performed By: #### L 500.4100, L501.9985, L500.4050, L100.0100 #### [facility] [address] [place], [address] Triglyceride [Mass/Vol] 111 mg/dL Normal [facility] Comment on above: Order Comment: Order Date: 05/01/24 Order Info: [id number] - CMP Order Info: [id number] - LIPID Result Comment: The drugs N-Acetylcysteine and Metamizole may falsely depress this assay. Normal range: <150 mg/dL Borderline High: 150-199 mg/dL High: 200-499 mg/dL Very High: >500 mg/dL Performed By: #### L 500.4100, L501.9985, L500.4050, L100.0100 #### [facility] [address] [place], [place], [address] MCV (mean corpuscular volume ) determinationOrdered By: Saul Michelle on 08-28-2024 MCV (RBC) [Entitic vol] 89.3 fL 80-94 [facility] Mean corpuscular hemoglobin (MCH) determinationOrdered By: Saul Michelle on 08-28-2024 MCH (RBC) [Entitic mass] 30.3 pg 27.0-32.0 [facility] Mean corpuscular hemoglobin concentration (MCHC) determinationOrdered By: Saul Michelle on 08-28-2024 MCHC (RBC) [Mass/Vol] 33.9 g/dL 32-36 [facility] Mean platelet volume determi nationOrdered By: Saul Michelle on 08-28-2024 Platelet mean volume (Bld) [Entitic vol] 11.5 fL 6.2-12.0 [facility] Microscopic analysis of urin e for red blood cells (RBC)Ordered By: Saul Michelle on 08-28-2024 Microscopic analysis of urine for red blood cells (RBC) 0 SEEN /hpf 0-5 [facility] Monocyte percentageOrdered B y: Saul Michelle on 08-28-2024 Monocytes/100 WBC (Bld) 6.3 % 0-10 [facility] Mucus LM Ql (Urine sed)Order ed By: Saul Michelle on 08-28-2024 Mucus Ql (Urine sed) 0 SEEN /hpf [facility] Neutrophil percentageOrdered By: Saul Michelle on 08-28-2024 Neutrophils/100 WBC (Bld) 75.0 % High 47-70 [facility] Nitrite Test strip Ql (U)Ord ered By: Saul Michelle on 08-28-2024 Nitrite Ql (U) Negative Negative [facility] Nucleated red blood cell per centageOrdered By: Saul Michelle on 08-28-2024 Nucleated RBC/100 WBC (Bld) [Ratio] 0 % 0-5 [facility] Platelet countOrdered By: Nicolasa Michelle on 08-28-2024 Platelets (Bld) [#/Vol] 204 10*3/uL 150-450 [facility] Potassium measurement (mass/ volume)Ordered By: Saul Michelle on 08-28-2024 Potassium (Unsp spec) [Mass/Vol] 3.6 mmol/L 3.3-5.1 [facility] Protein Test strip Ql (U)Ord ered By: Saul Michelle on 08-28-2024 Protein Ql (U) Negative Negative [facility] RBC Auto (Bld) [#/Vol]Ordere d By: Saul Michelle on 08-28-2024 RBC (Bld) [#/Vol] 4.59 10*6/uL Low 4.6-6.2 [facility] Screening total cholesterol/ high density lipoprotein (HDL) cholesterol ratioOrdered By: Saul Micehlle on 08-28-2024 Cholesterol.total/Suzanne sterol in HDL [Mass ratio] 3.24 {ratio} [facility] Serum creatinine measurement (mass/volume)Ordered By: Saul Michelle on 08-28-2024 Creatinine [Mass/Vol] 1.00 mg/dL 0.70-1.20 [facility] Serum globulin measurementOr dered By: Saul Michelle on 08-28-2024 Globulin (S) [Mass/Vol] 3.0 g/dL 2.2-4.2 [facility] Serum glucose measurement (m ass/volume)Ordered By: Saul Michelle on 08-28-2024 Glucose [Mass/Vol] 105 mg/dL High 70-99 [facility] Serum or plasma alanine chamorro otransferase (ALT) measurementOrdered By: Saul Michelle on 08-28-2024 ALT [Catalytic activity/Vol] 27 U/L <47 [facility] Serum or plasma albumin john urement (mass/volume)Ordered By: Saul Michelle on 08-28-2024 Albumin [Mass/Vol] 4.2 g/dL 3.4-4.8 [facility] Serum or plasma albumin/glob ulin mass ratioOrdered By: Saul Michelle on 08-28-2024 Albumin/Globulin [Mass ratio] 1.4 {ratio} 0.9-2.4 [facility] Serum or plasma alkaline campbell sphatase measurementOrdered By: Saul Michelle on 08-28-2024 ALP [Catalytic activity/Vol] 99 U/L 40-129 [facility] Serum or plasma calcium john urement (mass/volume)Ordered By: Saul Michelle on 08-28-2024 Calcium [Mass/Vol] 9.6 mg/dL 7.6-11.0 [facility] Serum or plasma cholesterol in HDL measurement (mass/volume)Ordered By: Saul Michelle on 08-28-2024 Cholesterol in HDL [Mass/Vol] 45 mg/dL >40 [facility] Comment on above: National Cholesterol Education Program (NCEP) guidelines:<40 mg/dL: Low HDL-cholesterol (major risk factor for CHD)>= 60 mg/dL: High HDL-cholesterol (negative risk factor for CHD)HDL-cholesterol is affected by a number of factors, e.g. smoking, exercise, hormones, sex and age. Serum or plasma cholesterol measurement (mass/volume)Ordered By: Saul Michelle on 08-28-2024 Cholesterol [Mass/Vol] 144 mg/dL <201 [facility] Comment on above: Cholesterol level, D esirable <200 mg/dLBorderline high cholesterol 200-239 mg/dLHigh cholesterol >=240 mg/dLRecommendations of the NCEP Adult Treatment Panel for the following risk-cutoff thresholds for the [place] population. Serum or plasma thiamine ayden surement (mass/volume)Ordered By: Saul Michelle on 08-28-2024 Thiamine [Mass/Vol] 145.7 nmol/L 66.5-200.0 [facility] Comment on above: Performed at: - L [address] [id number] Director: Georgie Cancino MD, Phone: [phone] Serum or plasma urea nitroge n measurement (mass/volume)Ordered By: Saul Michelle on 08-28-2024 Urea nitrogen [Mass/Vol] 21 mg/dL High 4-19 [facility] Sodium levelOrdered By: Saul Michelle on 08-28-2024 Sodium [Moles/Vol] 138 mmol/L 133-145 [facility] Squamous epithelial cells de tection in urine sediment by light microscopyOrdered By: Saul Michelle on 08-28-2024 Epithelial cells.squamous LM Ql (Urine sed) 0 SEEN /hpf 0- [facility] Total proteinOrdered By: Peter Michelle on 08-28-2024 Protein [Mass/Vol] 7.2 g/dL 5.9-8.4 [facility] Triglycerides measurementOrd ered By: Saul Michelle on 08-28-2024 Triglyceride [Mass/Vol] 111 mg/dL <199 [facility] Comment on above: The drugs N-Acetylcy steine and Metamizole may falsely depress this assay. Normal range: <150 mg/dLBorderline High: 150-199 mg/dLHigh: 200-499 mg/dLVery High: >500 mg/dL Urinalysis, Completeon 08-28 BACTERIA 0 SEEN Normal None Seen [facility] Comment on above: Order Comment: CLEAN CATCH Performed By: #### L 3300.8000, L3300.8200, L400.0001 #### [facility] [address] [place], [address] EPI,SQUAMOUS 0 SEEN Normal 0-5 [facility] Comment on above: Order Comment: CLEAN CATCH Performed By: #### L 3300.8000, L3300.8200, L400.0001 #### [facility] [address] [place], [address] Mucus Ql (Urine sed) 0 SEEN Normal [facility] Comment on above: Order Comment: CLEAN CATCH Performed By: #### L 3300.8000, L3300.8200, L400.0001 #### [facility] [address] [place], [address] RBC 0 SEEN Normal 0-5 [facility] Comment on above: Order Comment: CLEAN CATCH Performed By: #### L 3300.8000, L3300.8200, L400.0001 #### [facility] [address] [place], [address] WBC 0 SEEN Normal 0-5 [facility] Comment on above: Order Comment: CLEAN CATCH Performed By: #### L 3300.8000, L3300.8200, L400.0001 #### [facility] [address] [place], [address] Urine clarityOrdered By: Peter Michelle on 08-28-2024 Clarity (U) Clear Clear [facility] Urine color determinationOrd ered By: Saul Michelle on 08-28-2024 Color (U) Yellow Yellow [facility] Urine glucose detectionOrder ed By: Saul Michlele on 08-28-2024 Glucose Ql (U) Normal mg/dl Normal [facility] Urine leukocyte esterase det ection by dipstickOrdered By: Saul Michelle on 08-28-2024 Leukocyte esterase Test strip Ql (U) Negative Negative [facility] Urine pHOrdered By: Saul phillips on 08-28-2024 pH (U) 6.5 [pH] 5.0 - 8.0 [facility] Urine sediment bacteria coun t by microscopy (number/high power field)Ordered By: Saul Michelle on 08-28-2024 Bacteria LM.HPF (Urine sed) [#/Area] 0 /[HPF] None Seen [facility] Urine specific gravity measu rementOrdered By: Saul Michelle on 08-28-2024 Specific gravity (U) [Rel density] 1.015 1.002-1.030 [facility] Urine urobilinogen measureme ntOrdered By: Saul Michelle on 08-28-2024 Urobilinogen Ql (U) Normal mg/dl Normal [facility] Vitamin B12on 08-28-2024 Cobalamin (Vitamin B12) [Mass/Vol] 599 pg/mL Normal 180-914 [facility] Comment on above: Order Comment: Order Date: 05/01/24 Order Info: [id number] - CMP Order Info: [id number] - LIPID Performed By: #### L 503.0106 #### [facility] [address] [place], [place], [address] Vitamin B12 ser/plasOrdered By: Saul Michelle on 08-28-2024 Cobalamin (Vitamin B12) [Mass/Vol] 599 pg/mL 180-914 [facility] White blood cell (WBC) count Ordered By: Saul Michelle on 08-28-2024 WBC (Bld) [#/Vol] 5.8 10*3/uL 4.4-11.0 [facility] White blood cell countOrdere d By: Saul Michelle on 08-28-2024 White blood cell count 0 SEEN /hpf 0-5 [facility] Cardiology Visit Reporton Cardiology Visit Report [facility] [address] [place], [place] [address] OFFICE VISIT Date of Service: 07/03/24 MR#: [id number] Acct: [id number] Name: MANN GUAJARDO Rep #: [id number] : 1950 Provider: Dr. 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 Normal [facility] Thyroidon 01-17-2024 Thyroid [facility] [address] [place] [address] Thyroid MR#: [id number] Acct: [id number] Name: MANN GUAJARDO Rep #: [id number] : 1950 M 73 From: Bashir Floyd DO PCP: Dr. Saul Michelle MD Status: REG CL Study: Thyroid Date of Exam: 01/17/24 Exam# [id number] Ordering Dr: Saul Michelle MD [id number] INDICATION: THY NODULE EXAMINATION: Ultrasound US Thyroid [...] 10:00 EST Reading Location ID and State: [address] [place] [address] Tel [phone], Service support , CC: Dr. Saul Michelle MD Web Marketing Intern: Signed Normal [facility] Basophil percentageOrdered B y: Saul Michelle on 12-25-2022 Bilirubin [Mass/Vol] 1.40 mg/dL 0.20-1.00 [facility] Comment on above: For patients on eltr ombopag therapy, use of Dimension [place] TBIL is not recommended. Protein [Mass/Vol] 7.4 g/dL 6.4-8.2 [facility] Direct bilirubinOrdered By: Saul Michelle on 12-25-2022 Bilirubin.direct [Mass/Vol] 0.30 mg/dL 0.00-0.30 [facility] - Chemistry and C hemistry - challengeOrdered By: Saul Michelle on 12-25-2022 ALP [Catalytic activity/Vol] 103 U/L 45-117 [facility] ALT [Catalytic activity/Vol] 33 U/L 16-61 [facility] Globulin (S) [Mass/Vol] 3.8 g/dL 2.2-4.2 [facility] Serum or plasma albumin john urement (mass/volume)Ordered By: Saul Michelle on 12-25-2022 Albumin [Mass/Vol] 3.6 g/dL 3.2-5.0 [facility] Thin prep Papanicolaou smear with manual screeningOrdered By: Saul Michelle on 12-25-2022 Thin prep Papanicolaou smear with manual screening 20 U/L 15-37 [facility] Absolute lymphocyte countOrd ered By: Saul Michelle on 12-21-2022 Lymphocytes Auto (Unsp spec) [#/Vol] 0.99 10*3/uL 0.83-4.51 [facility] Basophil percentageOrdered B y: Saul Michelle on 12-21-2022 Basophil percentage 0 SEEN /hpf 0-5 [facility] Basophils/100 WBC (Bld) 0.7 % 0-1 [facility] Bilirubin [Mass/Vol] 1.50 mg/dL 0.20-1.00 [facility] Comment on above: For patients on eltr ombopag therapy, use of Dimension [place] TBIL is not recommended. Chloride [Moles/Vol] 103 mmol/L 98-107 [facility] Cholesterol [Mass/Vol] 110 mg/dL <200 [facility] Comment on above: <200 mg/dL Desirable 200-240 mg/dL Borderline >240 mg/dL High Risk Eosinophils/100 WBC (Bld) 1.1 % 0-5 [facility] Glucose [Mass/Vol] 109 mg/dL 74-106 [facility] Comment on above: Fasting Glucose resu lt from 100 to 125 mg/dL suggests IMPAIRED HOMEOSTASIS per A.D.A. criteria. Neutrophils (Bld) [#/Vol] 3.9 10*3/uL 2.0-7.7 [facility] Neutrophils/100 WBC (Bld) 71.7 % 47-70 [facility] Potassium [Moles/Vol] 3.7 mmol/L 3.5-5.1 [facility] Protein [Mass/Vol] 7.4 g/dL 6.4-8.2 [facility] Sodium [Moles/Vol] 139 mmol/L 136-145 [facility] Triglyceride [Mass/Vol] 82 mg/dL <199 [facility] Comment on above: The drugs N-Acetylcy steine and Metamizole may falsely depress this assay.Serum Triglycerides Reference Interval Normal <150 mg/dL Borderline high 150 - 199 mg/dL High 200 - 499 mg/dL Very High > or = 500 mg/dL WBC (Bld) [#/Vol] 5.4 10*3/uL 4.4-11.0 [facility] Bilirubin Test strip Ql (U)O rdered By: Saul Michelle on 12-21-2022 Bilirubin Ql (U) Negative Negative [facility] Blood erythrocytes count (nu mber/volume)Ordered By: Saul Michelle on 12-21-2022 RBC (Bld) [#/Vol] 4.64 10*6/uL 4.6-6.2 [facility] Blood hemoglobin measurement (mass/volume)Ordered By: Saul Michelle on 12-21-2022 Hemoglobin (Bld) [Mass/Vol] 14.5 g/dL 13.0-16.5 [facility] Blood lymphocytes/100 leukoc ytesOrdered By: Saul Michelle on 12-21-2022 Lymphocytes/100 WBC (Bld) 18.3 % 19-41 [facility] Blood monocytes/100 leukocyt esOrdered By: Saul Michelle on 12-21-2022 Monocytes/100 WBC (Bld) 8.0 % 0-10 [facility] Blood platelet mean volumeOr dered By: Saul Michelle on 12-21-2022 Platelet mean volume (Bld) [Entitic vol] 10.8 fL 6.2-12.0 [facility] Determination of erythrocyte mean corpuscular volume (MCV)Ordered By: Saul Michelle on 12-21-2022 MCV (RBC) [Entitic vol] 91.8 fL 80-94 [facility] Hematocrit Auto (Bld) [Volum e fraction]Ordered By: Saul Michelle on 12-21-2022 Hematocrit (Bld) [Volume fraction] 42.6 % 40-54 [facility] Ketones Test strip Ql (U)Ord ered By: Saul Michelle on 12-21-2022 Ketones Ql (U) Negative Negative [facility] - Chemistry and C hemistry - challengeOrdered By: Saul Michelle on 12-21-2022 ALP [Catalytic activity/Vol] 100 U/L 45-117 [facility] ALT [Catalytic activity/Vol] 32 U/L 16-61 [facility] CO2 [Moles/Vol] 31.0 mmol/L 21.0-32.0 [facility] Cobalamin (Vitamin B12) [Mass/Vol] 487 pg/mL 211-911 [facility] Free T4 [Mass/Vol] 0.92 ng/dL 0.76-1.46 [facility] Globulin (S) [Mass/Vol] 3.7 g/dL 2.2-4.2 [facility] Urea nitrogen/Creatinine [Mass ratio] 21.2 mg/mg 10-20 [facility] - Hematology and Cell countsOrdered By: Saul Michelle on 12-21-2022 Erythrocyte distribution width (RBC) [Entitic vol] 43.7 fL 35.1-43.9 [facility] Erythrocyte distribution width (RBC) [Ratio] 13.0 % 11.6-14.6 [facility] Immature granulocytes/100 WBC (Bld) 0.200 % 0.0-0.9 [facility] Comment on above: IG% - Immature Granu locytes (promyelocytes, myelocytes and metamyelocytes) > 1% indicates that a LEFT SHIFT is Present. MCH (RBC) [Entitic mass] 31.3 pg 27.0-32.0 [facility] Nucleated RBC/100 WBC (Bld) [Ratio] 0 % 0-5 [facility] MCHC Auto (RBC) [Mass/Vol]Or dered By: Saul Michlele on 12-21-2022 MCHC (RBC) [Mass/Vol] 34.0 g/dL 32-36 [facility] Mucus LM Ql (Urine sed)Order ed By: Saul Michelle on 12-21-2022 Mucus Ql (Urine sed) 0 SEEN /hpf [facility] Nitrite Test strip Ql (U)Ord ered By: Saul Michelle on 12-21-2022 Nitrite Ql (U) Negative Negative [facility] No Panel InformationOrdered By: Saul Michelle on 12-21-2022 Vitamin B6 Level 25.2 ug/L 3.4-65.2 [facility] Comment on above: Deficiency: <3.4 Mar ginal: 3.4 - 5.1 Adequate: >5.1 Whole Blood Vitamin B1 Level 157.5 nmol/L 66.5-200.0 [facility] Comment on above: Performed at: [address] [id number] Director: Georgie Cancino MD, Phone: [phone] Estimated GFR (MDRD) Amer 90 mL/min >60 [facility] Comment on above: GFR Calc Estimated GFR (MDRD) Non-Af Amer 75 mL/min >60 [facility] Comment on above: Non- GFR Calc Thyroid Stimulating Hormone (TSH) 1.66 uIU/mL 0.358-3.74 [facility] Platelets bldOrdered By: Peter Michelle on 12-21-2022 Platelets (Bld) [#/Vol] 203 10*3/uL 150-450 [facility] Protein Test strip Ql (U)Ord ered By: Saul Michelle on 12-21-2022 Protein Ql (U) Negative Negative [facility] Serum or plasma albumin john urement (mass/volume)Ordered By: Saul Michelle on 12-21-2022 Albumin [Mass/Vol] 3.7 g/dL 3.2-5.0 [facility] Serum or plasma albumin/glob ulin mass ratioOrdered By: Saul Michelle on 12-21-2022 Albumin/Globulin [Mass ratio] 1.0 {ratio} 0.9-2.4 [facility] Serum or plasma calcium john urement (mass/volume)Ordered By: Saul Michelle on 12-21-2022 Calcium [Mass/Vol] 9.4 mg/dL 8.5-10.1 [facility] Serum or plasma cholesterol in HDL measurement (mass/volume)Ordered By: Saul Michelle on 12-21-2022 Cholesterol in HDL [Mass/Vol] 48 mg/dL >40 [facility] Comment on above: The drugs N-Acetylcy steine and Metamizole may falsely depress this assay. Reference Range HDL <40 mg/dL Low HDL Cholesterol HDL >or= 60 mg/dL High HDL Cholesterol Serum or plasma cholesterol in VLDL measurement (mass/volume)Ordered By: Saul Michelle on 12-21-2022 Cholesterol in VLDL [Mass/Vol] 16 mg/dL 5-40 [facility] Serum or plasma creatinine m easurement (mass/volume)Ordered By: Saul Michelle on 12-21-2022 Creatinine [Mass/Vol] 1.04 mg/dL 0.70-1.30 [facility] Comment on above: The validity of the calculated GFR & GFRAA in patients over 70 years has not been determined. Clinical correlation is essential. Serum or plasma low density lipoprotein (LDL) cholesterol measurement (mass/volume)Ordered By: Saul Michelle on 12-21-2022 Cholesterol in LDL [Mass/Vol] 46 mg/dL 0-130 [facility] Serum or plasma urea nitroge n measurement (mass/volume)Ordered By: Saul Michelle on 12-21-2022 Urea nitrogen [Mass/Vol] 22 mg/dL 7-18 [facility] Squamous epithelial cells de tection in urine sediment by light microscopyOrdered By: Saul Michelle on 12-21-2022 Epithelial cells.squamous LM Ql (Urine sed) 0-5 SEEN /hpf 0-5 [facility] Thin prep Papanicolaou smear with manual screeningOrdered By: Saul Michelle on 12-21-2022 Thin prep Papanicolaou smear with manual screening 24 U/L 15-37 [facility] Thin prep Papanicolaou smear with manual screening 5 5-15 [facility] Urine blood detectionOrdered By: Saul Michelle on 12-21-2022 RBC Ql (U) Negative Negative [facility] RBC Ql (U) 0-5 SEEN /hpf 0-5 [facility] Urine clarityOrdered By: Peter Michelle on 12-21-2022 Clarity (U) Sl. Cloudy Clear [facility] Urine color determinationOrd ered By: Saul Michelle on 12-21-2022 Color (U) Yellow Yellow [facility] Urine glucose detectionOrder ed By: Saul Michelle on 12-21-2022 Glucose Ql (U) Normal mg/dl Normal [facility] Urine leukocyte esterase det ection by dipstickOrdered By: Saul Michelle on 12-21-2022 Leukocyte esterase Test strip Ql (U) Negative Negative [facility] Urine pHOrdered By: Saul phillips on 12-21-2022 pH (U) 8.0 [pH] 5.0 - 8.0 [facility] Urine sediment bacteria coun t by microscopy (number/high power field)Ordered By: Saul Michelle on 12-21-2022 Bacteria LM.HPF (Urine sed) [#/Area] 0 /[HPF] None Seen [facility] Urine specific gravity measu rementOrdered By: Saul Michelle on 12-21-2022 Specific gravity (U) [Rel density] 1.015 1.002-1.030 [facility] Urobilinogen Auto test strip Ql (U)Ordered By: Saul Michelle on 12-21-2022 Urobilinogen Ql (U) Normal mg/dl Normal [facility] Whole blood hemoglobin A1c/t otal hemoglobin ratio (mass fraction)Ordered By: Saul Michelle on 12-21-2022 HbA1c (Bld) [Mass fraction] 5.7 % 3.8-5.6 [facility] Comment on above: Normal < 5.7 % Predi abetic 5.7 - 6.4 % Diabetic >or= 6.5 % Please note range changes. Absolute lymphocyte countOrd ered By: Dr. Michelle on 07-06-2022 Lymphocytes Auto (Unsp spec) [#/Vol] 1.18 10*3/uL 0.83-4.51 [facility] Basophil percentageOrdered B y: Dr. Michelle on 07-06-2022 Basophils/100 WBC (Bld) 0.6 % 0-1 [facility] Bilirubin [Mass/Vol] 1.20 mg/dL 0.20-1.00 [facility] Comment on above: For patients on eltr ombopag therapy, use of Dimension [place] TBIL is not recommended. Chloride [Moles/Vol] 102 mmol/L 98-107 [facility] Cholesterol [Mass/Vol] 125 mg/dL <200 [facility] Comment on above: <200 mg/dL Desirable 200-240 mg/dL Borderline >240 mg/dL High Risk Eosinophils/100 WBC (Bld) 1.0 % 0-5 [facility] Glucose [Mass/Vol] 106 mg/dL 74-106 [facility] Comment on above: Fasting Glucose resu lt from 100 to 125 mg/dL suggests IMPAIRED HOMEOSTASIS per A.D.A. criteria. Neutrophils (Bld) [#/Vol] 3.6 10*3/uL 2.0-7.7 [facility] Neutrophils/100 WBC (Bld) 68.5 % 47-70 [facility] Potassium [Moles/Vol] 3.6 mmol/L 3.5-5.1 [facility] Protein [Mass/Vol] 7.6 g/dL 6.4-8.2 [facility] Sodium [Moles/Vol] 138 mmol/L 136-145 [facility] Triglyceride [Mass/Vol] 147 mg/dL <199 [facility] Comment on above: The drugs N-Acetylcy steine and Metamizole may falsely depress this assay.Serum Triglycerides Reference Interval Normal <150 mg/dL Borderline high 150 - 199 mg/dL High 200 - 499 mg/dL Very High > or = 500 mg/dL WBC (Bld) [#/Vol] 5.2 10*3/uL 4.4-11.0 [facility] Blood erythrocytes count (nu mber/volume)Ordered By: Dr. Michelle on 07-06-2022 RBC (Bld) [#/Vol] 4.92 10*6/uL 4.6-6.2 [facility] Blood hemoglobin measurement (mass/volume)Ordered By: Dr. Michelle on 07-06-2022 Hemoglobin (Bld) [Mass/Vol] 15.0 g/dL 13.0-16.5 [facility] Blood lymphocytes/100 leukoc ytesOrdered By: Dr. Michelle on 07-06-2022 Lymphocytes/100 WBC (Bld) 22.6 % 19-41 [facility] Blood monocytes/100 leukocyt esOrdered By: Dr. Michelle on 07-06-2022 Monocytes/100 WBC (Bld) 7.1 % 0-10 [facility] Blood platelet mean volumeOr dered By: Dr. Michelle on 07-06-2022 Platelet mean volume (Bld) [Entitic vol] 11.7 fL 6.2-12.0 [facility] Determination of erythrocyte mean corpuscular volume (MCV)Ordered By: Dr. Michelle on 07-06-2022 MCV (RBC) [Entitic vol] 91.9 fL 80-94 [facility] Hematocrit Auto (Bld) [Volum e fraction]Ordered By: Dr. Michelle on 07-06-2022 Hematocrit (Bld) [Volume fraction] 45.2 % 40-54 [facility] - Chemistry and C hemistry - challengeOrdered By: Dr. Michelle on 07-06-2022 ALP [Catalytic activity/Vol] 107 U/L 45-117 [facility] ALT [Catalytic activity/Vol] 41 U/L 16-61 [facility] CO2 [Moles/Vol] 28.0 mmol/L 21.0-32.0 [facility] Cobalamin (Vitamin B12) [Mass/Vol] 486 pg/mL 211-911 [facility] Free T4 [Mass/Vol] 0.98 ng/dL 0.76-1.46 [facility] [facility] Globulin (S) [Mass/Vol] 3.9 g/dL 2.2-4.2 [facility] Urea nitrogen/Creatinine [Mass ratio] 19.9 mg/mg 10-20 [facility] - Hematology and Cell countsOrdered By: Dr. Michelle on 07-06-2022 Erythrocyte distribution width (RBC) [Entitic vol] 43.1 fL 35.1-43.9 [facility] Erythrocyte distribution width (RBC) [Ratio] 12.7 % 11.6-14.6 [facility] Immature granulocytes/100 WBC (Bld) 0.200 % 0.0-0.9 [facility] Comment on above: IG% - Immature Granu locytes (promyelocytes, myelocytes and metamyelocytes) > 1% indicates that a LEFT SHIFT is Present. MCH (RBC) [Entitic mass] 30.5 pg 27.0-32.0 [facility] Nucleated RBC/100 WBC (Bld) [Ratio] 0 % 0-5 [facility] MCHC Auto (RBC) [Mass/Vol]Or dered By: Dr. Michelle on 07-06-2022 MCHC (RBC) [Mass/Vol] 33.2 g/dL 32-36 [facility] No Panel InformationOrdered By: Dr. Michelle on 07-06-2022 Estimated GFR (MDRD) Amer 100 mL/min >60 [facility] Comment on above: GFR Calc Estimated GFR (MDRD) Non-Af Amer 82 mL/min >60 [facility] Comment on above: Non- GFR Calc Thyroglobulin Antibody < 1.0 IU/mL 0.0-0.9 [facility] Comment on above: Thyroglobulin Antibo dy measured by Yasmany CoulterMethodology Thyroglobulin Level 8.0 ng/mL 1.4-29.2 [facility] Comment on above: According to the [facility] Academy of Clinical Biochemistry,the reference interval for Thyroglobulin (TG) should berelated to euthyroid patients and not for patients whounderwent thyroidectomy. TG reference intervals for thesepatients depend on the residual mass of the thyroid tissueleft after surgery. Establishing a post-operative baselineis recommended. The assay limit of quantitation is 0.1ng/mLThyroglobulin measured by Yasmany Dickens ImmunometricAssay Thyroid Stimulating Hormone (TSH) 1.84 uIU/mL 0.358-3.74 [facility] Vitamin B6 Level 19.6 ug/L 3.4-65.2 [facility] Comment on above: Deficiency: <3.4 Mar ginal: 3.4 - 5.1 Adequate: >5.1 Whole Blood Vitamin B1 Level 169.9 nmol/L 66.5-200.0 [facility] Platelets bldOrdered By: Dr. Michelle on 07-06-2022 Platelets (Bld) [#/Vol] 236 10*3/uL 150-450 [facility] Serum or plasma albumin john urement (mass/volume)Ordered By: Dr. Michelle on 07-06-2022 Albumin [Mass/Vol] 3.7 g/dL 3.2-5.0 [facility] Serum or plasma albumin/glob ulin mass ratioOrdered By: Dr. Michelle on 07-06-2022 Albumin/Globulin [Mass ratio] 0.9 {ratio} 0.9-2.4 [facility] Serum or plasma calcium john urement (mass/volume)Ordered By: Dr. Michelle on 07-06-2022 Calcium [Mass/Vol] 9.4 mg/dL 8.5-10.1 [facility] Serum or plasma cholesterol in HDL measurement (mass/volume)Ordered By: Dr. Michelle on 07-06-2022 Cholesterol in HDL [Mass/Vol] 44 mg/dL >40 [facility] Comment on above: The drugs N-Acetylcy steine and Metamizole may falsely depress this assay. Reference Range HDL <40 mg/dL Low HDL Cholesterol HDL >or= 60 mg/dL High HDL Cholesterol Serum or plasma cholesterol in VLDL measurement (mass/volume)Ordered By: Dr. Michelle on 07-06-2022 Cholesterol in VLDL [Mass/Vol] 29 mg/dL 5-40 [facility] Serum or plasma creatinine m easurement (mass/volume)Ordered By: Dr. Michelle on 07-06-2022 Creatinine [Mass/Vol] 0.96 mg/dL 0.70-1.30 [facility] Comment on above: The validity of the calculated GFR & GFRAA in patients over 70 years has not been determined. Clinical correlation is essential. Serum or plasma low density lipoprotein (LDL) cholesterol measurement (mass/volume)Ordered By: Dr. Michelle on 07-06-2022 Cholesterol in LDL [Mass/Vol] 52 mg/dL 0-130 [facility] Serum or plasma thyroperoxid ase antibody assay (units/volume)Ordered By: Dr. Michelle on 07-06-2022 TPO Ab Qn [IU]/mL 0-34 [facility] Comment on above: Performed at: [address] [id number] Director: Georgie Cancino MD, Phone: [phone] at: - [facility] [id number] Director: Riley Calvillo PhD, Phone: [phone] Serum or plasma urea nitroge n measurement (mass/volume)Ordered By: Dr. Michelle on 07-06-2022 Urea nitrogen [Mass/Vol] 19 mg/dL 7-18 [facility] Thin prep Papanicolaou smear with manual screeningOrdered By: Dr. Michelle on 07-06-2022 Thin prep Papanicolaou smear with manual screening 30 U/L 15-37 [facility] Thin prep Papanicolaou smear with manual screening 8 5-15 [facility] CNPNon 12-30-2021 [facility] MANN GUAJARDO ([id number]) 1950 Date Time Provider Department 12/30/21 AAYUSH WILLS [...] December 30, 2021 1:14 PM Fran Dennis APRN.[facility] 01/02/2022 8:46 AM Signed Please instruct [...] Fully Assessed Reason for Visit: Patient Question [0867] Prescriptions as of 01/02/2022 - atorvastatin (LIPITOR) 40 mg tablet - cqtpzrcq-gjx-hrvtj-vit K-lycop (MEN'S ONE DAILY) 400-20-300 mcg tab [...] Encounter Status:Closed by SUPRIYA IVEY on 01/02/22 [facility] Comprehensive metabolic 2000 panelon 12-29-2021 Albumin [Mass/Vol] 4.2 g/dL Normal 3.9-4.[address] [facility] Comment on above: Order Comment: Speci men Type: BLOOD SPECIMEN Ordering Facility: [facility] Address: [address] Performed By: #### 2 4323-8 #### [facility] CLIA [id number] [address] [place] [address] [place] ALP [Catalytic activity/Vol] 110 U/L Normal 38-113 [facility] Comment on above: Order Comment: Speci men Type: BLOOD SPECIMEN Ordering Facility: [facility] Address: [address] [place], [place] [address] Performed By: #### 2 4323-8 #### [facility] CLIA [id number] [address] [place] [address] [place] ALT [Catalytic activity/Vol] 26 U/L Normal 10-54 [facility] Comment on above: Order Comment: Speci men Type: BLOOD SPECIMEN Ordering Facility: [facility] Address: [address] [place] [address] Performed By: #### 2 4323-8 #### [facility] CLIA [id number] [address] [place] [address] [place] Anion gap [Moles/Vol] 9 mmol/L Normal 9-18 [facility] Comment on above: Order Comment: Speci men Type: BLOOD SPECIMEN Ordering Facility: [facility] Address: [address] [place] [address] Performed By: #### 2 4323-8 #### [facility] CLIA [id number] [address] [place] [address] [place] AST [Catalytic activity/Vol] 27 U/L Normal 14-40 [facility] Comment on above: Order Comment: Speci men Type: BLOOD SPECIMEN Ordering Facility: [facility] Address: [address] [place], [place] [address] Performed By: #### 2 4323-8 #### [facility] CLIA [id number] [address] [place] [address] [place] Bilirubin [Mass/Vol] 1.0 mg/dL Normal 0.2-1.3 [facility] Comment on above: Order Comment: Speci men Type: BLOOD SPECIMEN Ordering Facility: [facility] Address: [address] [place] [address] Performed By: #### 2 4323-8 #### [facility] CLIA [id number] [address] [place] [address] [place] Calcium [Mass/Vol] 8.9 mg/dL Normal 8.5-10.[address] [facility] Comment on above: Order Comment: Speci men Type: BLOOD SPECIMEN Ordering Facility: [facility] Address: [address] [place] [address] Performed By: #### 2 4323-8 #### [facility] CLIA [id number] [address] [place] [address] [place] Chloride [Moles/Vol] 99 mmol/L Normal 97-105 [facility] Comment on above: Order Comment: Speci men Type: BLOOD SPECIMEN Ordering Facility: [facility] Address: [address] [place] [address] Performed By: #### 2 4323-8 #### [facility] CLIA [id number] [address] [place] [address] [place] CO2 [Moles/Vol] 29 mmol/L Normal 22-30 [facility] Comment on above: Order Comment: Speci men Type: BLOOD SPECIMEN Ordering Facility: [facility] Address: [address] [place] [address] Performed By: #### 2 4323-8 #### [facility] CLIA [id number] [address] [place] [address] [place] Creatinine [Mass/Vol] 1.00 mg/dL Normal 0.73-1.22 [facility] Comment on above: Order Comment: Speci men Type: BLOOD SPECIMEN Ordering Facility: [facility] Address: [address] [address] Performed By: #### 2 4323-8 #### [id number] [address] [place] [address] [place] ESTIMATED GLOMERULAR FILTRATION RATE 81 mL/min/1.73m??? Normal >=60 [facility] Comment on above: Order Comment: Dino bearden Type: BLOOD SPECIMEN Ordering Facility: [facility] Address: [address] [place] [address] Result Comment: Maki mated Glomerular Filtration Rate [...] GFR. Performed By: #### 2 4323-8 #### [facility] [id number] [address] [place] [address] [place] Glucose [Mass/Vol] 114 mg/dL High 74-[address] [facility] Comment on above: Order Comment: Dino bearden Type: BLOOD SPECIMEN Ordering Facility: [facility] Address: [address] [place] [address] Result Comment: The [place] Diabetes Association (ADA) provides guidance for cutoff [...] Standards of Medical Care in Diabetes 2016, [place] Diabetes Association. Diabetes Care. 2016.39(Suppl 1). Performed By: #### 2 4323-8 #### [facility] [id number] [address] [place] [address] [place] Potassium [Moles/Vol] 3.5 mmol/L Low 3.7-5.1 [facility] Comment on above: Order Comment: Speci men Type: BLOOD SPECIMEN Ordering Facility: [facility] Address: [address] [place] [address] Performed By: #### 2 4323-8 #### [facility] CLIA [id number] [address] [place] [address] [place] Protein [Mass/Vol] 6.6 g/dL Normal 6.3-8.[address] [facility] Comment on above: Order Comment: Speci men Type: BLOOD SPECIMEN Ordering Facility: [facility] Address: [address] [place] [address] Performed By: #### 2 4323-8 #### [facility] [id number] [address] [place] [address] [place] Sodium [Moles/Vol] 137 mmol/L Normal 136-[address] [facility] Comment on above: Order Comment: Speci men Type: BLOOD SPECIMEN Ordering Facility: [facility] Address: [address] [place] [address] Performed By: #### 2 4323-8 #### [facility] [id number] [address] [place] [address] [place] Urea nitrogen [Mass/Vol] 18 mg/dL Normal 9-24 [facility] Comment on above: Order Comment: Speci men Type: BLOOD SPECIMEN Ordering Facility: [facility] Address: [address] [place], [place] [address] Performed By: #### 2 4323-8 #### [facility] CLIA [id number] [address] [place] [address] [place] Lipid 1996 panelon 2 Cholesterol [Mass/Vol] 126 mg/dL Normal <200 [facility] Comment on above: Order Comment: Speci men Type: BLOOD SPECIMEN Ordering Facility: [facility] Address: [address] [place] [address] Result Comment: <200 mg/dL, Desirable 200-239 mg/dL, Borderline high >239 mg/dL, High Performed By: #### 2 4331-1 #### [facility] CLIA [id number] [address] [place] [address] [place] [facility] CLIA [id number] [address] [place] [address] [place] Cholesterol in HDL [Mass/Vol] 42 mg/dL Normal >39 [facility] Comment on above: Order Comment: Kirstini men Type: BLOOD SPECIMEN Ordering Facility: [facility] Address: [address] [place] [address] Result Comment: 40-5 9 mg/dL, Acceptable >59 mg/dL, High: Negative risk factor for coronary heart disease <40 mg/dL, Low: Positive risk factor for coronary heart disease Performed By: #### 2 4331-1 #### [facility] CLIA [id number] [address] [place] [address] [place] [facility] CLIA [id number] [address] [place] [address] [place] Cholesterol in LDL [Mass/Vol] 65 mg/dL Normal <100 [facility] Comment on above: Order Comment: Speci men Type: BLOOD SPECIMEN Ordering Facility: [facility] Address: [address] [place], [place] [id number] Result Comment: <100 mg/dL, Optimal 100-129 mg/dL, Near optimal/above optimal 130-159 mg/dL, Borderline high 160-189 mg/dL, High >189 mg/dL, Very high Secondary prevention optimal LDL Cholesterol levels are recommended to be < 70 mg/dL Performed By: #### 2 4331-1 #### [facility] CLIA [id number] [address] [place] [address] [place] [facility] CLIA [id number] [address] [place] [address] [place] Cholesterol in LDL/Cholesterol in HDL [Mass ratio] 1.55 {ratio} Normal <2.54 [facility] Comment on above: Order Comment: Speci men Type: BLOOD SPECIMEN Ordering Facility: [facility] Address: [address] [place] [address] Result Comment: Refe rence: 1. National Cholesterol Education Program ATP III Guideline At-A-Glance Quick Desk Reference: National Heart, Lung, and Blood [place]. National Institutes of Health. 2001: NIH Publication No. 01-3305. 2. An International Atherosclerosis Society position paper: global recommendations for the management of dyslipidemia: executive summary, Atherosclerosis. 2014: 232(2):410-413. Performed By: #### 2 4331-1 #### [facility] CLIA [id number] [address] [place] [address] [place] [facility] CLIA [id number] [address] [place] [address] [place] Cholesterol in VLDL [Mass/Vol] 19 mg/dL Normal <30 [facility] Comment on above: Order Comment: Speci men Type: BLOOD SPECIMEN Ordering Facility: [facility] Address: [address] [place] [address] Performed By: #### 2 4331-1 #### [facility] CLIA [id number] [address] [place] [address] [place] [facility] CLIA [id number] [address] [place] [address] [place] Cholesterol non HDL [Mass/Vol] 84 mg/dL Normal <130 [facility] Comment on above: Order Comment: Speci men Type: BLOOD SPECIMEN Ordering Facility: [facility] Address: [address] [place], [place] [id number] Result Comment: <130 mg/dL, Optimal 130-159 mg/dL, Near optimal/above optimal 160-189 mg/dL, Borderline high 190-219 mg/dL, High >219 mg/dL, Very high Secondary prevention optimal non HDL Cholesterol levels are recommended to be <100 mg/dL Performed By: #### 2 4331-1 #### [facility] CLIA [id number] [address] [place] [address] [place] [facility] CLIA [id number] [address] [place] [address] [place] Cholesterol.total/Suzanne sterol in HDL [Mass ratio] 3.00 {ratio} Normal <5.10 [facility] Comment on above: Order Comment: Speci men Type: BLOOD SPECIMEN Ordering Facility: [facility] Address: [address] [place], [place] [address] Performed By: #### 2 4331-1 #### [facility] CLIA [id number] [address] [place] [address] [place] [facility] CLIA [id number] [address] [place] [address] [place] FASTING TIME 12 hrs Normal [facility] Comment on above: Order Comment: Speci men Type: BLOOD SPECIMEN Ordering Facility: [facility] Address: [address] [place], [place] [address] Performed By: #### 2 4331-1 #### [facility] CLIA [id number] [address] [place] [address] [place] [facility] CLIA [id number] [address] [place] [address] [place] Triglyceride [Mass/Vol] 93 mg/dL Normal <150 [facility] Comment on above: Order Comment: Speci men Type: BLOOD SPECIMEN Ordering Facility: [facility] Address: [address] [place], [place] [id number] Result Comment: <150 mg/dL, Normal 150-199 mg/dL, Borderline high 200-499 mg/dL, High >499 mg/dL, Very high Performed By: #### 2 4331-1 #### [facility] CLIA [id number] [address] [address] [place] [facility] CLIA [id number] [address] [place] CNOVon 12-21-2021 CNOV Office Visit (FAMMAS ) MANN GUAJARDO ([id number]) 1950 M Date Time Provider Department 12/21/21 9:50 AM AAYUSH WILLS During your visit today, we recorded the following information about you: Temperature Pulse Respiration Blood pressure 98.4 degrees 82/minute 14/minute 140/80 Weight Height 80.1 kg 1.702 m Aayush Wills MD 12/21/2021 11:00 AM Signed This note was created using MyColorScreenriter. Subjective Mann Guajardo is a 71 year [...] [E78.2] Order(s):COMP METABOLIC PANEL [SQCMP] Order #: [id number] FUTURE LIPID PANEL BASIC [SQLIPB] Order #: [id number] FUTURE Valsartan-hydroCHLOROt hiazide (DIOVAN HCT) 160-25 mg per tabletTake 1 tablet by mouth once daily.Disp: 90 tabletRfl: 3 Prescriptions as of 12/21/2021 - atorvastatin (LIPITOR) 40 mg tablet - csiyyrqj-zkw-junfe-vit K-lycop (MEN'S ONE DAILY) 400-20-300 mcg tab [...] (Discontinued) Level of Service: OFFICE/OUTPATIENT ESTABLISHED LOW [facility] 20-29 MIN [78548] Encounter Status:Closed by AAYUSH WILLS on 12/21/21 [facility] Absolute lymphocyte counton 06-30-2021 Lymphocytes Auto (Unsp spec) [#/Vol] 1.40 10*3/uL 0.83-4.51 [facility] Work Phone: Basophil percentageon 2021 Basophils/100 WBC (Bld) 0.5 % 0-1 [facility] Work Phone: Bilirubin [Mass/Vol] 1.20 mg/dL 0.20-1.00 [facility] Work Phone: Comment on above: For patients on eltr ombopag therapy, use of Dimension [place] TBIL is not recommended. Chloride [Moles/Vol] 107 mmol/L 98-107 [facility] Work Phone: Cholesterol [Mass/Vol] 129 mg/dL <200 [facility] Work Phone: Comment on above: <200 mg/dL Desirable 200-240 mg/dL Borderline >240 mg/dL High Risk Eosinophils/100 WBC (Bld) 1.6 % 0-5 [facility] Work Phone: Glucose [Mass/Vol] 105 mg/dL 74-106 [facility] Work Phone: Comment on above: Fasting Glucose resu lt from 100 to 125 mg/dL suggests IMPAIRED HOMEOSTASIS per A.D.A. criteria. Neutrophils (Bld) [#/Vol] 4.0 10*3/uL 2.0-7.7 [facility] Work Phone: Neutrophils/100 WBC (Bld) 66.2 % 47-70 [facility] Work Phone: Potassium [Moles/Vol] 3.8 mmol/L 3.5-5.1 [facility] Work Phone: Protein [Mass/Vol] 7.3 g/dL 6.4-8.2 [facility] Work Phone: Sodium [Moles/Vol] 141 mmol/L 136-145 [facility] Work Phone: Triglyceride [Mass/Vol] 107 mg/dL [facility] Work Phone: Comment on above: The drugs N-Acetylcy steine and Metamizole may falsely depress this assay.Serum Triglycerides Reference Interval Normal <150 mg/dL Borderline high 150 - 199 mg/dL High 200 - 499 mg/dL Very High > or = 500 mg/dL WBC (Bld) [#/Vol] 6.1 10*3/uL 4.4-11.0 [facility] Work Phone: Blood erythrocytes count (nu mber/volume)on 06-30-2021 RBC (Bld) [#/Vol] 4.75 10*6/uL 4.6-6.2 [facility] Work Phone: Blood hemoglobin measurement (mass/volume)on 06-30-2021 Hemoglobin (Bld) [Mass/Vol] 14.6 g/dL 13.0-16.5 [facility] Work Phone: Blood lymphocytes/100 leukoc yteson 06-30-2021 Lymphocytes/100 WBC (Bld) 23.0 % 19-41 [facility] Work Phone: Blood monocytes/100 leukocyt eson 06-30-2021 Monocytes/100 WBC (Bld) 8.4 % 0-10 [facility] Work Phone: Blood platelet mean volumeon 06-30-2021 Platelet mean volume (Bld) [Entitic vol] 11.7 fL 6.2-12.0 [facility] Work Phone: Determination of erythrocyte mean corpuscular volume (MCV)on 06-30-2021 MCV (RBC) [Entitic vol] 89.7 fL 80-94 [facility] Work Phone: Hematocrit Auto (Bld) [Volum e fraction]on 06-30-2021 Hematocrit (Bld) [Volume fraction] 42.6 % 40-54 [facility] Work Phone: Laboratory - Chemistry and C hemistry - challengeon 06-30-2021 ALP [Catalytic activity/Vol] 101 U/L 45-117 [facility] Work Phone: ALT [Catalytic activity/Vol] 33 U/L 16-61 [facility] Work Phone: CO2 [Moles/Vol] 28.0 mmol/L 21.0-32.0 [facility] Work Phone: Globulin (S) [Mass/Vol] 3.7 g/dL 2.2-4.2 [facility] Work Phone: Urea nitrogen/Creatinine [Mass ratio] 18.1 mg/mg 10-20 [facility] Work Phone: Laboratory - Hematology and Cell countson 06-30-2021 Erythrocyte distribution width (RBC) [Entitic vol] 41.9 fL 35.1-43.9 [facility] Work Phone: Erythrocyte distribution width (RBC) [Ratio] 12.7 % 11.6-14.6 [facility] Work Phone: Immature granulocytes/100 WBC (Bld) 0.300 % 0.0-0.9 [facility] Work Phone: Comment on above: IG% - Immature Granu locytes (promyelocytes, myelocytes and metamyelocytes) > 1% indicates that a LEFT SHIFT is Present. MCH (RBC) [Entitic mass] 30.7 pg 27.0-32.0 [facility] Work Phone: Nucleated RBC/100 WBC (Bld) [Ratio] 0 % 0-5 [facility] Work Phone: MCHC Auto (RBC) [Mass/Vol]on 06-30-2021 MCHC (RBC) [Mass/Vol] 34.3 g/dL 32-36 [facility] Work Phone: No Panel Informationon 06-30 Estimated GFR (MDRD) Amer 80 mL/min >60 [facility] Work Phone: Comment on above: GFR Calc Estimated GFR (MDRD) Non-Af Amer 66 mL/min >60 [facility] Work Phone: Comment on above: Non- GFR Calc Prostate Specific Antigen Screen 8.66 ng/mL 0.00-4.00 [facility] Work Phone: Comment on above: This test was perfor med using the TPSA assay method for the[employer] chemistry system. Values obtained with differentassay methods cannot be used interchangably.When changing PSA assays in the course of monitoring apatient, additional sequential testing should be carriedout to confirm baseline values. Platelets bldon 06-30-2021 Platelets (Bld) [#/Vol] 195 10*3/uL 150-450 [facility] Work Phone: Serum or plasma albumin john urement (mass/volume)on 06-30-2021 Albumin [Mass/Vol] 3.6 g/dL 3.2-5.0 [facility] Work Phone: Serum or plasma albumin/glob ulin mass ratioon 06-30-2021 Albumin/Globulin [Mass ratio] 1.0 {ratio} 0.9-2.4 [facility] Work Phone: Serum or plasma calcium john urement (mass/volume)on 06-30-2021 Calcium [Mass/Vol] 8.9 mg/dL 8.5-10.1 [facility] Work Phone: Serum or plasma cholesterol in HDL measurement (mass/volume)on 06-30-2021 Cholesterol in HDL [Mass/Vol] 42 mg/dL [facility] Work Phone: Comment on above: The drugs N-Acetylcy steine and Metamizole may falsely depress this assay. Reference Range HDL <40 mg/dL Low HDL Cholesterol HDL >or= 60 mg/dL High HDL Cholesterol Serum or plasma cholesterol in VLDL measurement (mass/volume)on 06-30-2021 Cholesterol in VLDL [Mass/Vol] 21 mg/dL 5-40 [facility] [facility] Work Phone: Serum or plasma creatinine m easurement (mass/volume)on 06-30-2021 Creatinine [Mass/Vol] 1.16 mg/dL 0.70-1.30 [facility] Work Phone: Comment on above: The validity of the calculated GFR & GFRAA in patients over 70 years has not been determined. Clinical correlation is essential. 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 Alanine aminotransferase (ALT) 46 U/L Invalid Interpretation Code [employer] Work Phone: [phone] Alkaline phosphatase (ALP) 110 U/L Invalid Interpretation Code [employer] Work Phone: [phone] Aspartate aminotransferase (AST) 36 U/L Invalid Interpretation Code [employer] Phone: [phone] Bilirubin (total) 1.60 mg/dL High [employer] Work Phone: [phone] Office Visiton 11-03-2016 Dietary management education, guidance, and counseling (procedure) yes Invalid Interpretation Code [employer] Work Phone: [phone] Documentation of current medications (procedure) Done Invalid Interpretation Code [employer] Phone: [phone] Fall risk assessment No Invalid Interpretation Code [employer] Phone: [phone] Tobacco use CPHS Never smoker Invalid Interpretation Code [employer] Phone: [phone] Clinical 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 ABNORMAL Invalid Interpretation Code [employer] Work Phone: [phone] GE use only - for [employer] import when terms are not otherwise specified 407 ms Invalid Interpretation Code [employer] Phone: [phone] P wave axis, electrocardiogram 51 deg Invalid Interpretation Code [employer] Work Phone: [phone] GA interval, electrocardiogram 172 ms Invalid Interpretation Code [employer] Phone: [phone] Pulse (Heart Rate) 78 /min Invalid Interpretation Code [employer] Phone: [phone] QRS axis, electrocardiogram -42 deg Invalid Interpretation Code [employer] Work Phone: [phone] QRS duration, electrocardiogram 104 ms Invalid Interpretation Code [facility] Work Phone: [phone] QT interval, electrocardiogram new path ms Invalid Interpretation Code [employer] Work Phone: [phone] T wave axis, electrocardiogram -1 deg Invalid Interpretation Code [employer] Work Phone: [phone] 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 04-26-2016 Left ventricular Ejection fraction 60 % Invalid Interpretation Code [employer] Work Phone: [phone] Office Visit: [facility] 11-11-19 16 Cholesterol 137 mg/dL Invalid Interpretation Code [employer] Work Phone: [phone] HDL Cholesterol 46 mg/dL Invalid Interpretation Code [employer] Work Phone: [phone] LDL Cholesterol 61 mg/dL Invalid Interpretation Code [employer] Phone: [phone] Triglyceride 149 mg/dL Invalid Interpretation Code [employer] Phone: [phone] Lab Report: Basic Metabolic Profile (BMP)on 04-29-2015 Anion gap 7 mmol/L Invalid Interpretation Code 5-15 [facility] [employer] Work Phone: [phone] BUN/Creatinine Ratio 26.1 RATIO High 10-[address] [facility] Work Phone: [phone] Calcium 8.7 mg/dL Invalid Interpretation Code 8.5-10.1 [employer] Phone: [phone] Chloride 107 mmol/L Invalid Interpretation Code 98-107 [facility] Work Phone: [phone] CO2 28.0 mmol/L Invalid Interpretation Code 21.0-32.0 [facility] Work Phone: [phone] Creatinine 1.11 mg/dL Invalid Interpretation Code 0.70-1.30 [employer] Phone: [phone] eGFR (non-black) 86 mL/min/{1.73_m2} Invalid Interpretation Code >60 [employer] Work Phone: [phone] eGFR (non-black) 71 mL/min/{1.73_m2} Invalid Interpretation Code >60 [employer] Work Phone: [phone] Glucose 110 mg/dL Invalid Interpretation Code 70-110 [facility] Work Phone: [phone] Potassium 3.8 mmol/L Invalid Interpretation Code 3.5-5.1 [facility] Work Phone: [phone] Sodium 142 mmol/L Invalid Interpretation Code 136-145 [facility] Work Phone: [phone] Urea nitrogen 29 mg/dL High 7-18 [facility] Work Phone: [phone] Office Visiton 10-08-2014 cardiac risk group C Invalid Interpretation Code [facility] Work Phone: [phone] General cardiovascular disease 10Y risk [#] Warren.D'Agostino Not enough information Invalid Interpretation Code [facility] Work Phone: [phone] Vital Signs Date Time Vital Sign Value Performing Clinician Faci lity 07-03-2024 09:07-0400 Body height 170.[address] Saul Michelle MD Work Phone: [facility] 07-03-2024 09:07-0400 Body mass index (BMI) [Ratio] 28.8 kg/m2 Dr. Saul Michelle MD Work Phone: [facility] 07-03-2024 09:07-0400 Body weight 83.[address] Saul Michelle MD Work Phone: [facility] 07-03-2024 09:07-0400 Diastolic blood pressure 78 mm[Hg] Dr. Saul Michelle MD Work Phone: [facility] 07-03-2024 09:07-0400 Heart rate 88 /min Dr. Saul Michelle MD Work Phone: [facility] 07-03-2024 09:07-0400 Respiratory rate 16 /min Dr. Saul Michelle MD Work Phone: [facility] 07-03-2024 09:07-0400 Systolic blood pressure 142 mm[Hg] Dr. Saul Michelle MD Work Phone: [facility] 12-21-2021 09:44-0400 Body height 170.2 cm Aayush Wills MD Work Phone: [facility] 12-21-2021 09:44-0400 Body temperature 98.4 [degF] Aayush Wills MD Work Phone: [facility] 12-21-2021 09:44-0400 Body weight 80.11 kg Aayush Wills MD Work Phone: [facility] 12-21-2021 09:44-0400 Diastolic blood pressure 80 mm[Hg] Aayush Wills MD Work Phone: [facility] 12-21-2021 09:44-0400 Heart rate 82 /min Aayush Wills MD Work Phone: [facility] 12-21-2021 09:44-0400 Respiratory rate 14 /min Aayush Wills MD Work Phone: [facility] 12-21-2021 09:44-0400 SaO2% (BldA) [Mass fraction] 98 % Aayush Wills MD Work Phone: [facility] 12-21-2021 09:44-0400 Systolic blood pressure 140 mm[Hg] Aayush Wills MD Work Phone: [facility] 11-03-2016 11:02-0400 BMI (Body Mass Index) 27.82 kg/m2 [facility] Work Phone: 11-03-2016 11:02-0400 BP Diastolic 78 mm[Hg] Karen Gomez [facility] Work Phone: 11-03-2016 11:02-0400 BP Systolic 138 mm[Hg] Karen [facility] Work Phone: 11-03-2016 11:02-0400 Height 172.72 cm [facility] Work Phone: 11-03-2016 11:02-0400 Pulse (Heart Rate) 68 /min Karen Gomez [facility] Work Phone: 11-03-2016 11:02-0400 Respiratory Rate 18 /min Karen Gomez [facility] Work Phone: 11-03-2016 11:02-0400 Weight 83.01 kg Karen Gomez [facility] Work Phone: 04-28-2016 12:54-0500 BSA (Body Surface Area) 1.96 m2 Karen Gomez [facility] Work Phone: 10-08-2014 13:38-0400 Height 172.72 cm Karen Gomez [facility] Work Phone: Encounters Encounter Date Encounter Type Care Provider Facility Start: 01-22-2025 ambulatory Saul Michelle [facility] y:[facility] Start: 01-01-2025 End: 01-01-2025 ambulatory Saul Michelle Facility:[facility] Start: 08-28-2024 End: 08-28-[address] Saul Michelle MD Work Phone: -Laboratory [facility] [place] Start: 08-28-2024 End: 08-28-[address] Saul Michelle MD -Laboratory [facility] Start: 08-28-2024 End: 08-28-2024 ambulatory Saul Michelle Facility:[facility] Start: 07-03-2024 End: 07-03-[address] Eric Gooden MD -[facility] Work Phone: Start: 07-03-2024 End: 07-03-2024 ambulatory Saul Michelle Facility:[facility] Start: 01-17-2024 End: 01-17-2024 ambulatory Saul Michelle Facility:[facility] Start: 12-25-2022 End: 12-25-2022 ambulatory [facility] Work Phone: Start: 12-25-2022 End: 12-25-2022 Patient encounter procedure [facility] Work Phone: Start: 12-21-2022 End: 12-21-2022 Patient encounter procedure [facility] Work Phone: Start: 08-24-2022 Non-patient / Non-visit Dr. Nicolasa Michelle Work Phone: [facility] Start: 08-24-2022 End: 08-24-[address] Saul Michelle Work Phone: [facility] Work Phone: Start: 08-24-2022 End: 08-24-[address] Saul Michelle Work Phone: [facility] Start: 07-27-2022 Non-patient / Non-visit Dr. Nicolasa Michelle Work Phone: [facility] Start: 07-27-2022 End: 07-27-[address] Saul Michelle Work Phone: [facility] Work Phone: Start: 07-27-2022 End: 07-27-[address] Saul Michelle Work Phone: [facility] Start: 07-06-2022 End: 07-06-2022 ambulatory [facility] Work Phone: Start: 07-06-2022 End: 07-06-2022 Patient encounter [facility] Start: 07-05-2022 Refill Aayush Rodriguez MD Work Phone: [facility] Comment on above: Refill Request Start: 12-30-2021 Orders Only Supriya Ivey LPN [facility] Comment on above: Patient Question Start: 12-29-2021 End: 12-29-2021 ambulatory AAYUSH WILLS Facility:[facility] Start: 12-21-2021 End: 12-21-2021 ambulatory AAYUSH WILLS Facility:[id number] Start: 12-21-2021 End: 12-21-2021 Office outpatient visit 15 minutes Aayush Wills MD Work Phone: [facility] Comment on above: Benign essential HTN (Primary Dx); Mixed hyperlipidemia Start: 06-30-2021 End: 06-30-2021 Patient encounter procedure [facility] [place] Procedures Date Procedure Procedure Detail Performing Clinician [...] Luis Felipe Campos Start: 11-03-2016 End: 11-03-2016 PFAldo Alfred MD Start: 04-28-2016 End: 04-28-2016 Follow [...] Felipe Alfred MD Start: 01-20-2015 End: 01-20-2015 MMM Luis Felipe Alfred MD Start: 11-27-2014 End: 11-28-2014 Documentation [...] Felipe Alfred MD Start: 10-08-2014 End: 10-08-2014 MMM Luis Felipe Alfred MD Start: 10-08-2014 End: 11-27-2014 Remote [...] Author Start: 12-29-2026 LIPID SCREEN LIPID SCREEN [facility] Start: 12-29-2024 DIABETES SCREEN DIABETES SCREEN [facility] Start: 12-21-2022 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 ANNUAL PCP TEAM CHRONIC DISEASE VISIT [facility] Start: 11-03-2022 Influenza vaccination INFLUENZA (Sea son Ended) [facility] Start: 03-05-2022 ADVANCE DIRECTIVE DISCUSSION ADVANCE DIRECTIVE DISCUSSION [facility] Start: 03-05-2022 DEPRESSION ASSESSMENT DEPRESSION ASS [facility] Start: 12-21-2021 End: 02-20-2022 Comprehensive metabolic 2000 panel - Serum or Plasma COMP METABOLIC PANEL Lab Routine Benign essential HTN Mixed hyperlipidemia Expected: 12/21/2021, Expires: 02/20/2022 [facility] Work Phone: Comment on above: Expected: 12/21/2021 , Expires: 02/20/2022 Start: 12-21-2021 End: 02-20-2022 Lipid 1996 panel - Serum or Plasma LIPID PANEL BASIC Lab Routine Mixed hyperlipidemia Expected: 12/21/2021, Expires: 02/20/2022 [facility] Work Phone: Comment on above: Expected: 12/21/2021 , Expires: 02/20/2022 Start: 11-03-2021 Influenza vaccination INFLUENZA (#1) [facility] Start: 03-05-2021 ADVANCE DIRECTIVE DISCUSSION ADVANCE DIRECTIVE DISCUSSION [facility] Start: 03-05-2021 [facility] Start: 11-07-2017 End: 11-07-2017 Appointment Appointment [facility] Work Phone: Start: 11-03-2016 End: 11-03-2016 Follow Up Appt 1 year Follow Up Appt 1 year [facility] Work Phone: Start: 11-03-2016 End: 11-03-2016 PFM PFM [facility] Work Phone: Start: 05-27-2016 PNEUMOCOCCAL: 65+ (1 - PCV) PNEUMOCOCCAL: 65+ (1 - PCV) [facility] Start: 04-28-2016 End: 04-28-2016 Follow Up Appt 6 months Follow Up Appt 6 months [facility] Work Phone: Start: 04-28-2016 End: 04-28-2016 PFM PFM [facility] Work Phone: Start: 11-01-2015 End: 11-01-2015 Follow Up Appt 6 months Follow Up Appt 6 months [facility] Work Phone: Start: 11-01-2015 End: 11-01-2015 Follow Up Appt Other Follow Up Appt Other [facility] Work Phone: Start: 11-01-2015 End: 11-01-2015 MMM MMM [facility] Work Phone: Start: 04-28-2015 End: 04-14-2016 *BMP *BMP [facility] Work Phone: Start: 04-21-2015 End: 04-14-2016 Follow Up Appt 6 months Follow Up Appt 6 months [facility] Work Phone: Start: 04-21-2015 End: 04-14-2016 PFM PFM [facility] Work Phone: Start: 01-20-2015 End: 01-20-2015 Follow Up Appt 3 months Follow Up Appt 3 months [facility] Work Phone: Start: 01-20-2015 End: 01-20-2015 MMM MMM [facility] Work Phone: Start: 11-27-2014 End: 11-27-2014 Follow Up Appt 6 weeks Follow Up Appt 6 weeks [facility] Work Phone: Start: 11-27-2014 End: 11-27-2014 Follow Up BP Check Follow Up BP Check [employer] Phone: Start: 11-27-2014 End: 11-27-2014 PFM PFM [facility] Work Phone: Start: 10-08-2014 End: 10-08-2014 Electrocardiogram, complete EKG (In office) [employer] Phone: Start: 10-08-2014 End: 10-08-2014 Follow Up Appt 6 weeks Follow Up Appt 6 weeks [employer] Work Phone: Start: 10-08-2014 End: 10-08-2014 MMM MMM [facility] Work Phone: Start: 10-08-2014 End: 11-27-2014 Remote 30 day ecg rev/report 30 Day Holter Monitor [employer] Phone: Start: 05-27-2001 SHINGRIX VACCINE (1 of 2) SHINGRIX VACCINE (1 of 2) [facility] Start: 05-27-1996 COLOGUARD (FIT-DNA) COLOGUARD (FIT-D NA) [facility] Start: 05-27-1996 Colonoscopy COLONOSCOPY [facility] Start: 05-27-1996 COLORECTAL CANCER SCREENING COLORECTAL CANCER SCREENING [facility] Start: 05-27-[address] COLONOGRAPHY [facility] Start: 05-27-1996 DIABETES SCREEN DIABETES SCREEN [facility] Start: 05-27-1996 FECAL OCCULT BLOOD FECAL OCCULT BLOO D [facility] Start: 05-27-1996 SIGMOIDOSCOPY SIGMOIDOSCOPY [facility] Start: 05-27-1986 LIPID SCREEN LIPID SCREEN [facility] Start: 05-27-1970 Urine microalbumin profile DTAP,TDAP,TD (1 - Tdap) [facility] Start: 05-27-1969 BP CONTROLLED (<130/80) BP CONTROLLE D (<130/80) [facility] Start: 05-27-1969 HEPATITIS C SCREENING HEPATITIS C SC LETTY [facility] Start: 1950 COVID-19 VACCINE (#1) COVID-19 VACCI NE (#1) [facility] Payers Date Payer Category Payer Self-pay [id number] 2020 Medicare HUMANA MEDICARE HUMANA GOLD PLUS [id number] 2020-Present [phone] [address] [address] [place] [address] HMO [id number] 2020 Private Health Insurance [id number] 2016 Medicare [id number] Unknown [id number] Unknown [facility] [id number] Unknown [id number] Unknown [id number] Unknown [id number] 62 Unknown [id number] 62 Unknown [id number] Social History Date Type Detail Facility Start: 01-05-2021 End: 01-05-2022 Tobacco smoking status NHIS Unknown if ever smoked [facility] Start: 09-06-2014 None [facility] Start: 09-06-2014 With Family [facility] Start: 09-06-2014 Non-smoker [facility] Start: 1950 Sex Assigned At Male [facility] Start: 12-21-2021 End: 03-15-2023 Tobacco smoking status NHIS Never smoked tobacco [facility] Start: 12-21-2021 Tobacco use and exposure Smokeless tobacco non-user [facility] Start: 12-21-2021 Alcohol intake Ex-drinker (finding) [facility] Start: 1950 Sex Assigned At Not on file [facility] Start: 12-11-2021 End: 12-21-2021 Exposure to SARS-CoV-2 (event) Not sure [facility] NEGATED: Highlighted rowStart: NINF History of tobacco use Passive smoker [facility] Medical Equipment Procedure Code Equipment Code Equipment Origin al Text Equipment Identifier Dates Repair, hernia, inguinal, with mesh insertion MESH,PROLENE [id number] FDA Start: 11-26-2020 Repair, hernia, inguinal, with mesh insertion MESH,PROLENE [id number] FDA Start: 11-26-2020 Repair, hernia, inguinal, with mesh insertion MESH,PROLENE [id number] FDA Start: 11-26-2020 Repair, hernia, inguinal, with mesh insertion MESH,PROLENE [id number] FDA Start: 11-26-2020 Repair, hernia, inguinal, with mesh insertion MESH,PROLENE [id number] FDA Start: 11-26-2020 Repair, hernia, inguinal, with mesh insertion MESH,PROLENE [id number] FDA Start: 11-26-2020 Evaluation note 07-03-2024 Note Date & Type Note Facility 07-03-2024 Evaluation note Diagnosis Onset Date Resolution Essential hypertension chronic Ma 2024 9:06am Hyperlipidemia chronic July 03, 2 9:06am [facility] Work Phone: Note 07-05-2022 Telephone Encounter - Waleska Mcleod LPN - 07/05/2022 2:24 PM EDT Note Date & Type Note Facility 07-05-2022 Miscellaneous Notes Formattin g of this note is different from the original. [facility] message requesting the following refill. Requested Prescriptions Pending Prescriptions Disp Refills atorvastatin (LIPITOR) 40 mg tablet [Pharmacy Med Name: ATORVASTATIN CALCIUM 40 MG Tablet] 90 tablet 3 Sig: TAKE 1 TABLET EVERY DAY Patient last appointment: 12/21/2021 Patient Phone numbers: [phone] (home) Request is for script(s) to be escript to mail order [facility]. Waleska Mcleod LPN documented in this encounter [facility] Note 01-02-2022 Telephone Encounter - Supriya [...] 2021 1:14 PM documented in this encounter [facility] Progress note 12-30-2021 Note Date & Type Note Facility 12-30-2021 Note HNO ID: [id number] Author: Supriya Ivey LPN Service: ? Author [...] Ivey LPN December 30, 2021 1:14 PM [facility] History of Present illness Narrative 12-30-2021 Supriya [...] 2021 1:14 PM documented in this encounter [facility] Progress note 12-21-2021 Note Date & Type Note Facility 12-21-2021 Note HNO ID: [id number] Author: Aayush Wills MD Service: ? Author Type: Physician Type: Progress Notes Filed: 12/21/2021 11:00 AM Note Text: This note was created using [employer]. Subjective Mann Guajardo is a 71 year [...] if blood pressure increases. Labs as above. [facility] History of Present illness Narrative 12-21-2021 Aayush Wills MD - 12/21/2021 10:06 AM EDT Note Date & Type Note Facility 12-21-2021 History of Presen t illness Narrative This note was created using [employer]. Subjective Mann Guajardo is a 71 year [...] Labs as above. documented in this encounter [facility] Evaluation note Note Date & Type Note Facility Evaluation note No assessment information availa ble [facility] Work Phone: Evaluation note Note Date & Type Note Facility Evaluation note Diagnosis Benign essential HTN- Primary Essential hypertension, benign Mixed hyperlipidemia documented in this encounter [facility] Reason for referral (narrative) Note Date & Type Note Facility Reason for referral (narrative) No reason for referral information available [facility] Work Phone: Advance Directives No Advanced Directives Records Found Advance Directive Response Recorded Date/ Time Advance Directives Yes September 06 5 10:23pm Living Will Yes November 23, 2020 3:08pm Power of Automotive Electrical Helper Yes November 3:08pm Advance Directive Response Recorded Date/ Time Living Will Yes November 23, 2020 3:08pm Do you have a Healthcare Power of Automotive Electrical Helper? Yes November 23, 2020 3:08pm Advance Directives [...] or prosecute any alcohol or drug abuse patient.[facility] the event this information is protected by the Federal Confidentiality of Alcohol and Drug Abuse Patient Records regulations: The Federal rules restrict any use of the information to criminally investigate or prosecute any alcohol or drug abuse patient.[facility] Hospital[facility] the event this information is protected by the Federal Confidentiality of Alcohol and Drug Abuse Patient Records regulations: The Federal rules restrict any use of the information to criminally investigate or prosecute any alcohol or drug abuse patient.[facility] the event this information is protected by the Federal Confidentiality of Alcohol and Drug Abuse Patient Records regulations: The Federal rules restrict any use of the information to criminally investigate or prosecute any alcohol or drug abuse patient.[facility] Reason for Visit (unrecogniz ed section and content) Reason Comments 6 Month Exam 6 month f/u for HTN pt has complaints of cough x 5 years Reason Comments Patient Question Reason Comments Refill Request Care Teams (unrecognized sec tion and content) Satellite Tv Technician Relationship Specialty Start Date End Date Aayush Wills MD [address], [place] [id number] PCP - General Family Medicine 12/20/21 Satellite Tv Technician Relationship Specialty Start Date End Date Aayush Wills MD [address], [place] [id number] PCP - General Family Medicine 12/20/21 Satellite Tv Technician Relationship Specialty Start Date End Date Aayush Wills MD [address], [place] [id number] PCP - General Family Medicine 12/20/21 Team [...] Dates Dr. Saul Michelle MD Primary Care Pr ovider, Attending Provider, [...] section and content) DATE CREATED AUTHOR 12/30/2021 [facility] DATE CREATED AUTHOR AUTHOR'S ORGANIZ ATION 01/02/2022 [facility] DATE CREATED AUTHOR AUTHOR'S ORGANIZ ATION 01/09/2025 [facility] FOR RECORDS PERTAINING TO PATIENTS WHO ARE [...] BE BASED ON THE PRIMARY CLINICAL RECORDS. [facility] [employer] [facility]. provides no warranty or guarantee of the accuracy or completeness of information in this document.
== END | disposition home or self-care (01) ==
LOC: US 11:54
PROVIDERS: PCP Family Medicine; Referring Provider Family Medicine; Visit Provider Family Medicine
DX: E04.1 Nontoxic single thyroid nodule (principal)
CPT/HCPCS: 76536